=== PATIENT | female | born 1960 | race Caucasian/White ===

== ENCOUNTER 2017-10-31 05:01 | Emergency (ER) | payer OTHER, SELFPAY ==
[2017-10-31 05:35] LABS: #Basophils 0.1 thou/uL (0.0-0.2); #Eosinphils 0.2 thou/uL (0.0-0.7); #Lymphocytes 2.5 thou/uL (1.20-3.40); #Monocytes 0.7 thou/uL (0.11-0.59); #Neutrophils 6.8 thou/uL (1.40-6.50); %Basophils 0.7 % (0.0-1.0); %Eosinophils 1.8 % (0.0-10.0); %Lymphocytes 24.5 % (21.0-51.0); %Monocytes 6.8 % (0.0-10.0); %Neutrophils 66.2 % (42.0-75.0); Hemoglobin 15.7 g/dL (12.0-16.0); Mean Corpuscular HGB CONC 34.2 g/dL (32.0-36.0); Mean Corpuscular Hemoglobin 33.1 pg (27.0-31.0); Mean Corpuscular Volume 96.8 fl (81.0-99.0); Mean Platelet Volume 6.9 fL (7.4-10.4); Platelet Count 280 thou/uL (130-400); RBC Distribution Width 11.2 % (11.5-14.5); Red Blood Cell (RBC) Count 4.73 mill/uL (4.20-5.40); White Blood Cell (WBC) Count 10.2 thou/uL (4.8-10.8)
[2017-10-31 05:47] LABS: ALT (SGPT) 16 U/L (8-55); AST (SGOT) 10 U/L (5-34); Alkaline Phosphatase 128 U/L (40-150); Anion Gap 13 mmol/L (10-20); BUN (Urea Nitrogen) 15 mg/dL (9.8-20.1); Bilirubin, Total 0.4 mg/dL (0.2-1.2); Calc. Creatinine Clearance 0 mL/min (70-130); Calcium 9.6 mg/dL (7.8-10.44); Carbon Dioxide 26 mmol/L (22-29); Chloride 102 mmol/L (98-107); Estimated GFR-MDRD 51; Glucose 192 mg/dL (70-105); Potassium 4.2 mmol/L (3.5-5.1); Sodium 137 mmol/L (136-145)
[2017-10-31] MEDS ORDERED: ISOVUE-370 76%-LOCM 1 ML ONE (07:13)
[2017-10-31] MEDS ORDERED: HYDROcodone/Acetaminophen 10/325 mg Tablet ONE (07:37)
--- NOTE | 2017-10-31 08:59 | RAD ---
RIGHT FOOT 3 VIEWS: Date: 10/31/17 HISTORY: Right foot pain, toes turning purple. FINDINGS/IMPRESSION: No fracture, dislocation, or bony destruction is seen. POS: JACIEL
--- NOTE | 2017-10-31 10:21 | CT ---
CT ANGIOGRAM OF ABDOMINAL AORTA AND BILATERAL LOWER EXTREMITY RUNOFF WITH IV CONTRAST AND 3D POSTPROC ESSING: Date: 10/31/17 HISTORY: 57-year-old female with right foot pain, toes turning purple. FINDINGS: There are chronic changes at the lung bases. No free air or free fluid is seen in the abdomen or pelv is. There is fatty infiltration of the liver. Pancreas, right adrenal gland, and kidneys are unremark able. There is a 3.5 cm left adrenal mass which does not meet criteria for a benign adenoma on postcontrast study. There are vascular calcifications without evidence of aneurysmal dilatation of the abdominal aorta. T here is good flow in the celiac axis, SMA, TANJA, and both renal arteries. There is multifocal atherosclerotic narrowing in the arteries of the pelvis and lower extremities on either side. There is a 2.8 cm segment of occlusion in the right common iliac artery with distal rakel nstitution. There is moderate to severe focal stenosis in the left distal common iliac artery. There is three vessel flow to the left ankle. There is two vessel flow to the right ankle with absenc e of flow in most of the right posterior tibial artery. IMPRESSION: 1. Segmental occlusion of the right common iliac artery. 2. Moderately severe stenosis in the left common iliac artery. 3. Diffuse atherosclerotic vascular disease with two vessel flow to the right ankle and three vessel flow to the left ankle. 4. Fatty liver. 5. Indeterminate 3.5 cm left adrenal mass. A CT scan of the abdomen using the adrenal protocol (with and without IV contrast) would be helpful for better characterization of the mass. POS: JACIEL
== END 2017-10-31 09:49 | disposition home or self-care (01) ==
LOC: ERS 05:01
DX: S95.901A Unspecified injury of unspecified blood vessel at ankle and foot level, right leg, initial encounter (principal); I73.9 Peripheral vascular disease, unspecified; E11.9 Type 2 diabetes mellitus without complications; J44.9 Chronic obstructive pulmonary disease, unspecified; F17.210 Nicotine dependence, cigarettes, uncomplicated; Z79.84 Long term (current) use of oral hypoglycemic drugs; Z79.899 Other long term (current) drug therapy; X58.XXXA Exposure to other specified factors, initial encounter
CPT/HCPCS: 36415; 75635; 80053; 85025; 86140; 96360

== ENCOUNTER 2017-11-04 07:08 | Day surgery (SDC) | payer OTHER ==
[2017-11-03 16:45] VITALS: BMI 25.0
[2017-11-04] MEDS ORDERED: Lidocaine 1% (PF) 30 ML VIAL ONE ×2 (07:45→08:00)
[2017-11-04] MEDS ORDERED: Heparin 0 ML ONE (07:45)
[2017-11-04] MEDS ORDERED: Fentanyl 100 MCG/2 ML VIAL ONE (08:23)
[2017-11-04] MEDS ORDERED: Midazolam HCl 2 mg/2 ml Vial ONE (08:23)
[2017-11-04] MEDS ORDERED: Heparin 10,000 UNITS/1 ML VIAL ONE (09:11)
--- NOTE | 2017-11-04 10:14 | OP ---
DATE OF PROCEDURE: 11/04/2017 PREOPERATIVE DIAGNOSES: Peripheral vascular disease. POSTOPERATIVE DIAGNOSIS: Peripheral vascular disease. PROCEDURE: 1. Bilateral ultrasound guided access to common femoral artery with sheath placement. 2. Abdominal aortogram with bilateral pelvic runoff. 3. Right external iliac artery angiogram. 4. Left external iliac artery angiogram. 5. Right common iliac artery angiogram. 6. Left common iliac artery angiogram. 7. Right common/external iliac primary stenting with a 6 x 57 Express LD stent taken to 8 mmHg. 8. Left external iliac artery primary stenting with a 6 x 37 Express LD stent taken to 8 mmHg. 9. Bilateral ProGlide closure. SURGEON: Dr. Diogo Grimaldo Total Heparin was 7000 units. CONTRAST: 30 mL. FLUORO TIME: 4.0 minutes. PROCEDURE IN DETAIL: After consent was obtained the patient was taken back to the labor and employment paralegal, placed i n supine position on the labor and employment paralegal table. Appropriate anesthetic monitor was placed. IV sedation was begun. The patient received a total of 2 mg Versed and 50 mcg fentanyl. The groins were prepped an d draped in the usual sterile fashion. On the left ultrasound guidance was used to anesthetize the p eriarterial tissue. Percutaneous access to the left common femoral artery was obtained with a microp uncture kit and sheath. This was exchanged for a 5-Cypriot sheath. Contra catheter was passed into t he abdominal aorta. Hand injected abdominal aortogram was performed. There was severe atherosclerot ic disease of the aorta and iliac artery bilaterally. There was an area in the left external iliac a rtery which was approximately 70% stenosis. The right common and external iliac artery were nearly o ccluded. Right groin was anesthetized using ultrasound guidance and micropuncture catheter and sheath were everett jody. The sheath was then exchanged for a 5-Cypriot sheath. Using an angled glide catheter the area o f occlusion in the right common and external iliac artery was traversed with a ESKY guidewire. Th e 5 Cypriot sheaths were exchanged for a 6-Cypriot sheaths bilaterally which were passed into the abdom inal aorta. On the right the sheath was withdrawn into the common iliac artery. Hand injected arteriogram was pe rformed eliminating the iliac system. The artery was measured and appropriate stent selected. The s tent was passed through the sheath. Sheath was withdrawn back into the external iliac artery. After positioning the stent appropriately the stent balloon was inflated. The stent deployment system was then deflated and removed. Hand injected arteriogram was performed with the tip of the sheath and e xternal iliac artery showing excellent result from stenting. The patient has been given 5000 units o f heparin prior to beginning the procedure. Another 2000 units of heparin was given for an ACT of 16 0. On the left, the sheath was backed into the common iliac artery. Hand injected arteriogram performed . An appropriately sized 6 x 37 Express LD stent was selected and positioned. The sheath was withdr awn into the external iliac artery. Stent was inflated to 10 mmHg. Stent deployment system was defl ated and removed. Hand injected arteriogram performed with the tip of the sheath in external iliac a rtery showed an excellent result. ProGlide catheters were then passed bilaterally over the Bentson g uidewire under fluoroscopic guidance. Sheaths were removed and ProGlide deployed. Good hemostasis w as obtained. The patient was then transferred to the recovery area to be observed for 2 hours prior to discharge.
--- NOTE | 2017-11-04 11:34 | CCL ---
DATE OF PROCEDURE: 11/04/2017 PREOPERATIVE DIAGNOSES: Peripheral vascular disease. POSTOPERATIVE DIAGNOSIS: Peripheral vascular disease. PROCEDURE: 1. Bilateral ultrasound guided access to common femoral artery with sheath placement. 2. Abdominal aortogram with bilateral pelvic runoff. 3. Right external iliac artery angiogram. 4. Left external iliac artery angiogram. 5. Right common iliac artery angiogram. 6. Left common iliac artery angiogram. 7. Right common/external iliac primary stenting with a 6 x 57 Express LD stent taken to 8 mmHg. 8. Left external iliac artery primary stenting with a 6 x 37 Express LD stent taken to 8 mmHg. 9. Bilateral ProGlide closure. SURGEON: Dr. Diogo Grimaldo Total Heparin was 7000 units. CONTRAST: 30 mL. FLUORO TIME: 4.0 minutes. PROCEDURE IN DETAIL: After consent was obtained the patient was taken back to the sanitation laborer, placed i n supine position on the sanitation laborer table. Appropriate anesthetic monitor was placed. IV sedation was begun. The patient received a total of 2 mg Versed and 50 mcg fentanyl. The groins were prepped an d draped in the usual sterile fashion. On the left ultrasound guidance was used to anesthetize the p eriarterial tissue. Percutaneous access to the left common femoral artery was obtained with a microp uncture kit and sheath. This was exchanged for a 5-Mozambican sheath. Contra catheter was passed into t he abdominal aorta. Hand injected abdominal aortogram was performed. There was severe atherosclerot ic disease of the aorta and iliac artery bilaterally. There was an area in the left external iliac a rtery which was approximately 70% stenosis. The right common and external iliac artery were nearly o ccluded. Right groin was anesthetized using ultrasound guidance and micropuncture catheter and sheath were everett jody. The sheath was then exchanged for a 5-Mozambican sheath. Using an angled glide catheter the area o f occlusion in the right common and external iliac artery was traversed with a [employer] guidewire. Th e 5 Mozambican sheaths were exchanged for a 6-Mozambican sheaths bilaterally which were passed into the abdom inal aorta. On the right the sheath was withdrawn into the common iliac artery. Hand injected arteriogram was pe rformed eliminating the iliac system. The artery was measured and appropriate stent selected. The s tent was passed through the sheath. Sheath was withdrawn back into the external iliac artery. After positioning the stent appropriately the stent balloon was inflated. The stent deployment system was then deflated and removed. Hand injected arteriogram was performed with the tip of the sheath and e xternal iliac artery showing excellent result from stenting. The patient has been given 5000 units o f heparin prior to beginning the procedure. Another 2000 units of heparin was given for an ACT of 16 0. On the left, the sheath was backed into the common iliac artery. Hand injected arteriogram performed . An appropriately sized 6 x 37 Express LD stent was selected and positioned. The sheath was withdr awn into the external iliac artery. Stent was inflated to 10 mmHg. Stent deployment system was defl ated and removed. Hand injected arteriogram performed with the tip of the sheath in external iliac a rtery showed an excellent result. ProGlide catheters were then passed bilaterally over the Bentson g uidewire under fluoroscopic guidance. Sheaths were removed and ProGlide deployed. Good hemostasis w as obtained. The patient was then transferred to the recovery area to be observed for 2 hours prior to discharge. POS: JACIEL
[2017-11-04] MEDS ORDERED: Iopamidol 370 76% 50 ML VIAL FS ONE (12:59)
== END 2017-11-04 12:05 | disposition home or self-care (01) ==
LOC: CCL 07:08
PROVIDERS: ATTEND Thoracic Surgery (Cardiothoracic Vascular Surgery)
PROC: 047J3DZ Dilation of Left External Iliac Artery with Intraluminal Device, Percutaneous Approach (ICD-10-PCS; principal; 2017-11-04)
PROC: 047H3DZ Dilation of Right External Iliac Artery with Intraluminal Device, Percutaneous Approach (ICD-10-PCS; principal; 2017-11-04)
DX: I70.213 Atherosclerosis of native arteries of extremities with intermittent claudication, bilateral legs (principal); E11.51 Type 2 diabetes mellitus with diabetic peripheral angiopathy without gangrene; F17.210 Nicotine dependence, cigarettes, uncomplicated; J44.9 Chronic obstructive pulmonary disease, unspecified; I10 Essential (primary) hypertension; Z88.0 Allergy status to penicillin; Z88.2 Allergy status to sulfonamides; Z79.84 Long term (current) use of oral hypoglycemic drugs; Z79.82 Long term (current) use of aspirin; Z79.02 Long term (current) use of antithrombotics/antiplatelets; Z79.899 Other long term (current) drug therapy
CPT/HCPCS: 37221; 37223; 76942; 85347; 93976; 99152; 99153; C1725; C1760; C1769; C1876; J1644; J2001; J2250; J3010

== ENCOUNTER 2017-11-04 16:35 | Emergency (ER) | payer OTHER ==
--- NOTE | 2017-11-04 20:14 | ULT ---
DUPLEX SONOGRAM LEFT GROIN 11/04/17 HISTORY: Left groin pain. Bleeding. Recent catheterization. FINDINGS: Good color and spectral doppler flow were present within the left common femoral artery and common fe moral vein. No fluid collections are apparent adjacent to the vessels. IMPRESSION: No significant abnormalities are demonstrated. POS: JACIEL
[2017-11-04] MEDS ORDERED: Bacitracin Zinc 1 Packet ONE (20:31)
== END 2017-11-04 20:40 | disposition home or self-care (01) ==
LOC: ERS 16:35
DX: I97.620 Postprocedural hemorrhage of a circulatory system organ or structure following other procedure (principal); E11.9 Type 2 diabetes mellitus without complications; J44.9 Chronic obstructive pulmonary disease, unspecified; F17.210 Nicotine dependence, cigarettes, uncomplicated; Z79.84 Long term (current) use of oral hypoglycemic drugs; Z79.899 Other long term (current) drug therapy
CPT/HCPCS: 93976

== ENCOUNTER 2018-08-07 23:38 | Inpatient (IN) | payer OTHER, SELFPAY ==
[2018-08-08] MEDS ORDERED: Morphine 4 MG/ML VIAL ONE (00:18)
[2018-08-08] MEDS ORDERED: Ondansetron PF 4 MG/2 ML Vial ONE ×2 (00:18→02:43)
[2018-08-08 00:33] LABS: #Eosinphils 0.1 thou/uL (0.0-0.7); #Lymphocytes 0.5 thou/uL (1.20-3.40); #Monocytes 0.4 thou/uL (0.11-0.59); #Neutrophils 11.4 thou/uL (1.40-6.50); %Basophils 0.4 % (0.0-1.0); %Eosinophils 0.5 % (0.0-10.0); %Monocytes 3.1 % (0.0-10.0); %Neutrophils 92.1 % (42.0-75.0); Hemoglobin 15.9 g/dL (12.0-16.0); Mean Corpuscular Hemoglobin 31.4 pg (27.0-31.0); Mean Corpuscular Volume 92.5 fL (78.0-98.0); Mean Platelet Volume 8.2 fL (7.4-10.4); Platelet Count 241 thou/uL (130-400); RBC Distribution Width 11.1 % (11.5-14.5); Red Blood Cell (RBC) Count 5.05 mill/uL (4.20-5.40); White Blood Cell (WBC) Count 12.3 thou/uL (4.8-10.8)
[2018-08-08 00:34] LABS: ALT (SGPT) 49 U/L (8-55); AST (SGOT) 27 U/L (5-34); Albumin 4.4 g/dL (3.5-5.0); Alkaline Phosphatase 176 U/L (40-150); Anion Gap 17 mmol/L (10-20); BUN (Urea Nitrogen) 14 mg/dL (9.8-20.1); Bilirubin, Total 0.8 mg/dL (0.2-1.2); Calc. Creatinine Clearance 0 mL/min (70-130); Calcium 9.6 mg/dL (7.8-10.44); Carbon Dioxide 21 mmol/L (22-29); Chloride 99 mmol/L (98-107); Estimated GFR-MDRD 55; Globulin 3.3 g/dL (2.4-3.5); Glucose 454 mg/dL (70-105); Lipase 41 U/L (8-78); Potassium 4.1 mmol/L (3.5-5.1); Protein, Total 7.7 g/dL (6.0-8.3); Sodium 133 mmol/L (136-145)
[2018-08-08 01:01] LABS: Troponin I Less than 0.010 ng/mL (< 0.028)
[2018-08-08] MEDS ORDERED: Insulin Regular 300 UNITS/3 ML VIAL ONE (02:43)
[2018-08-08 04:03] LABS: Bilirubin Negative (Negative); Blood, Urine Negative (Negative); Clarity CLEAR (Clear); Glucose, Urine (Dipstick) >=1000 mg/dL (Negative); Leukocyte Negative (Negative); Nitrite Negative (Negative); Protein, Urine (Dipstick) Negative (Neg-Trace); Urobilinogen 0.2 mg/dL (0.2-1.0)
[2018-08-08 04:10] LABS: Specific Gravity, Urine 1.051 (1.002-1.036)
[2018-08-08] MEDS ORDERED: Ondansetron PF 4 MG/2 ML Vial IVP PRN (05:30)
[2018-08-08] MEDS ORDERED: Acetaminophen 325 MG TAB PO PRN ×3 (05:30→18:11)
[2018-08-08] MEDS ORDERED: Ondansetron ODT 4 MG TAB SL PRN (05:30)
[2018-08-08] MEDS ORDERED: Morphine 2 MG/ML SYRINGE SLOW IVP PRN (05:31)
[2018-08-08 05:42] VITALS: BMI 26.3
[2018-08-08] MEDS: Sodium Chloride 0.9% 1,000 ML IV SCH ×4 (05:51→20:39)
--- NOTE | 2018-08-08 10:13 | RAD ---
KUB: INDICATIONS: NG tube placement. FINDINGS/IMPRESSION: NG tube projects in the region of the distal gastric body. Cardiomegaly is present. The bowel gas p attern is nonspecific but without evidence of obstruction. POS: LOSH
--- NOTE | 2018-08-08 11:05 | CT ---
PRELIMINARY REPORT/[facility]/EMERGENTY AFTER-HOURS PROCEDURE CT Abdomen and Pelvis With Intravenous Contrast EXAM DATE/TIME: 08/08/2018 12:38 AM CLINICAL HISTORY: 58 years old, female; Pain; Abdominal pain; Prior surgery; Surgery type: Hysterectomy; Patient HX: domen soft, tender, to the left upper quadrant, to the left lower quadrant, to the right lower quadra nt, bowel sound normal, associated with nausea, associated with vomiting, history of vomiting, patient reports vomiting "every 10-15 minutes" TECHNIQUE: Axial computed tomography images of the abdomen and pelvis with intravenous contrast. Coronal reformatted images were created and reviewed. COMPARISON: No relevant prior studies available. FINDINGS: Lower thorax: Small hiatal hernia. Peripheral and basilar pulmonary scarring/fibrosis. ABDOMEN: Liver: Hepatic steatosis. Gallbladder and bile ducts: Gallstone at the junction of the cystic duct and neck of the gallbladder. No gallbladder wall thickening or pericholecystic inflammation to indicate acute cholecystitis. No b iliary ductal dilatation. Pancreas: Normal. No ductal dilation. Spleen: Normal. No splenomegaly. Adrenals: 4 cm heterogeneous enhancing left adrenal mass, potentially malignant. Kidneys and ureters: Normal. No hydronephrosis. Stomach and bowel: Noncontiguous portions the small bowel are mildly distended with fluid up to 2 cm in caliber; however, there is no clear transition point. Findings may be secondary to normal peristal sis or may signify a partial distal small bowel obstruction. No bowel wall thickening. Appendix: Normal appendix. PELVIS: Bladder: Unremarkable as visualized. Reproductive: Prior hysterectomy. ABDOMEN and PELVIS: Intraperitoneal space: No pneumoperitoneum or abscess. Bones/joints: No acute fracture. No dislocation. Soft tissues: Unremarkable. Vasculature: No pneumatosis or portal/mesenteric venous gas. SMV and SMA are patent as far as can be traced. Lymph nodes: Normal. No enlarged lymph nodes. IMPRESSION: 1. Noncontiguous portions the small bowel are mildly distended with fluid up to 2 cm in caliber; werner ninoska, there is no clear transition point. Findings may be secondary to normal peristalsis or may signi fy a partial distal small bowel obstruction. 2. 4 cm heterogeneous enhancing left adrenal mass, potentially malignant. 3. Peripheral and basilar pulmonary scarring/fibrosis. Thank you for allowing us to participate in the care of your patient. Dictated and Authenticated by: Huey Martin MD 08/08/2018 1:29 AM Central Time ([place] & [place]) FINAL REPORT: There are nonspecific, mildly dilated, fluid-filled loops of small bowel within the upper abdomen roberto t may reflect mild enteritis. There are no overt obstructive features. The small bowel proximal to this region is nondilated. There is fatty infiltration of the liver. There is stable cholelithiasis. The small diverticulum in volving the junction of the second and third stage of the duodenum is likely stable. There is a stab le left adrenal adenoma, measuring 3.6 cm. The right adrenal gland is normal appearing. The kidneys are normal appearing. There are calcified granuloma within the spleen. There are scattered diverti cula involving the colon. There is a mild amount of retained stool within the colon. There is diffu se osteopenia. IMPRESSION: 1. Findings suspicious for mild enteritis. 2. Stable left adrenal adenoma. This has been stable since 2013. 3. Fatty liver. 4. Findings of prior granulomatous disease. 5. Colonic diverticulosis. POS: JACIEL
--- NOTE | 2018-08-08 11:17 | RAD ---
CHEST ONE VIEW: INDICATIONS: Nausea and vomiting. COMPARISON: 01/12/2015 FINDINGS: There is stable bibasilar scarring. Heart size is mildly enlarged. No pleural effusion or pneumotho rax is evident. Emphysematous change is similar appearing. No acute osseous abnormality is evident. IMPRESSION: No acute abnormality. POS: H
[2018-08-08] MEDS ORDERED: Dextrose 5% in Water 1,000 ML IV PRN (15:12)
[2018-08-08] MEDS ORDERED: Dextrose 50% Abboject 50 ML SYRINGE SLOW IVP PRN (15:12)
[2018-08-08] MEDS ORDERED: PROVENTIL INHALER 6.7 G (200 INHALATIONS) INH PRN (15:12)
[2018-08-08] MEDS ORDERED: HumaLOG 300 UNITS/3 ML VIAL SC PRN ×2 (15:12)
[2018-08-08] MEDS ORDERED: Guaifenesin DM 100-10/5 ML UDCUP PO PRN (15:12)
[2018-08-08] MEDS ORDERED: Iopamidol 370 76% 100 ML VIAL ONE (16:27)
[2018-08-08] MEDS: Lisinopril 10 MG TAB PO SCH (20:37)
[2018-08-08] MEDS: metFORMIN XR 500 MG TAB PO SCH (20:37)
[2018-08-09 05:38] LABS: #Eosinphils 0.1 thou/uL (0.0-0.7); #Lymphocytes 1.8 thou/uL (1.20-3.40); #Monocytes 0.5 thou/uL (0.11-0.59); #Neutrophils 2.5 thou/uL (1.40-6.50); %Eosinophils 1.3 % (0.0-10.0); %Lymphocytes 36.3 % (21.0-51.0); %Monocytes 10.6 % (0.0-10.0); %Neutrophils 50.8 % (42.0-75.0); Hemoglobin 13.3 g/dL (12.0-16.0); Mean Corpuscular HGB CONC 33.4 g/dL (32.0-36.0); Mean Corpuscular Hemoglobin 31.7 pg (27.0-31.0); Mean Corpuscular Volume 95.2 fL (78.0-98.0); Mean Platelet Volume 7.7 fL (7.4-10.4); Platelet Count 186 thou/uL (130-400); RBC Distribution Width 11.3 % (11.5-14.5)
[2018-08-09 06:15] LABS: Anion Gap 13 mmol/L (10-20); BUN (Urea Nitrogen) 11 mg/dL (9.8-20.1); Calc. Creatinine Clearance 77 mL/min (70-130); Calcium 8.1 mg/dL (7.8-10.44); Carbon Dioxide 23 mmol/L (22-29); Chloride 104 mmol/L (98-107); Estimated GFR-MDRD 82; Glucose 257 mg/dL (70-105); Potassium 3.6 mmol/L (3.5-5.1); Sodium 136 mmol/L (136-145)
--- NOTE | 2018-08-09 07:50 | HP ---
REASON FOR ADMISSION: Small bowel obstruction. HISTORY OF PRESENT ILLNESS: The patient complains of vomiting and dry heaving from 7:00 p.m. yesterday evening. At around 9:30 p.m., the patient started to have small amounts of blood with intractable dry heaving. At around 11:00 p.m. as this was not getting better, she came to the emergency room. She had abdominal cramping, but no diarrhea or such. Last bowel movement was yesterday morning, which looked normal. No prior history of small-bowel obstruction. She has had a CT scan done in the emergency room, which is suspicious for a small bowel obstruction. The patient was placed on NG tube with low intermittent suction and Dr. Hull was consulted for General Surgery. Currently, she has no abdominal pain, nausea, or vomiting. She is comfortable at present. PAST MEDICAL AND SURGICAL HISTORY: 1. Diabetes mellitus type 2. 2. Hypertension. 3. COPD. 4. Peripheral vascular disease. 5. She has had stenting done to both lower extremities for peripheral vascular disease. 6. x2. 7. Hysterectomy. CURRENT MEDICATIONS: Takes, 1. Metformin 500 mg p.o. twice daily. 2. Lisinopril 10 mg twice daily. 3. Aspirin 81 mg daily. ALLERGIES: TO PENICILLIN AND SULFA. PERSONAL HISTORY: Quit smoking in October of 2017, prior to which has smoked one and half packs a day for nearly 40 years. Does not abuse alcohol or drugs. Lives with her . FAMILY HISTORY: Mother of small cell lung cancer at the age of 62. She was a heavy smoker. Father at the age of 89 years. REVIEW OF SYSTEMS: CONSTITUTIONAL: Negative for weight loss or gain, ability to conduct usual activities. SKIN: Negative for rash, itching. EYES: Negative for double vision, pain. ENT/MOUTH: Negative for nose bleeding, neck stiffness, pain, tenderness. CARDIOVASCULAR: Negative for palpitations, dyspnea on exertion, orthopnea. RESPIRATORY: Negative for shortness of breath, wheezing, cough, hemoptysis, fever or night sweats. GASTROINTESTINAL: Negative for poor appetite, abdominal pain, heartburn, nausea, vomiting, constipation, or diarrhea. GENITOURINARY: Negative for urgency, frequency, dysuria, nocturia. MUSCULOSKELETAL: Negative for pain, swelling. NEUROLOGIC/PSYCHIATRIC: Negative for anxiety, depression. ALLERGY/IMMUNOLOGIC: Negative for skin rash, bleeding tendency. CODE STATUS: Full. POWER OF TECHNICIAN TRAINEE: Her . PHYSICAL EXAMINATION: GENERAL: The patient is a 58-year-old female, who is currently not in any acute distress. VITAL SIGNS: Blood pressure 126/80, pulse 90 per minute, respiratory rate 18 per minute, temperature on arrival was 99.2 degrees Fahrenheit, currently 98 degrees Fahrenheit, saturating 96% on room air. NECK: Supple. No elevated JVD. EYES: Extraocular muscles are intact. Pupils are reacting to light. Oral cavity, mucous membranes are moist. No exudates or congestion. CARDIOVASCULAR SYSTEM: S1 and S2 heard. Regular rhythm. RESPIRATORY SYSTEM: Air entry 1+ bilateral. Scattered rhonchi. No rales or wheezes. ABDOMEN: Soft. Bowel sounds heard. No tenderness, rigidity, or guarding. EXTREMITIES: No peripheral edema or calf tenderness. Peripheral pulses are 1+ bilateral. No ischemic ulcerations or gangrene. CENTRAL NERVOUS SYSTEM: No gross focal deficits noted. The patient is alert, awake, and oriented well. PSYCHIATRIC SYSTEM: The patient's mood is euthymic. No hallucinations or delusions. LABORATORY DATA: White count of 12, hemoglobin and hematocrit are 15 and 46, and platelet count 241 with 92% neutrophils. Sodium 133, serum bicarb 21, BUN 14, creatinine 1.0. Serum glucose 454 on arrival. Current fingerstick is 263. AST and ALT within normal limits. Alkaline phosphatase 176. First set of troponin is negative. Albumin is 4.4. Lipase is 41. CT of the abdomen and pelvis done, shows findings suspicious for possible small bowel obstruction, but there is no clear transition point. Findings could be related to normal peristalsis or partial small-bowel obstruction. Has a chronic left adrenal mass, which is 4 cm. Chest x-ray done shows no acute cardiopulmonary abnormality. CLINICAL IMPRESSION AND PLAN: The patient will be admitted to medical floor for small bowel obstruction, which is resolving at present. Her abdomen is very benign at present. The patient has stopped dry heaving. Her NG tube suction has around 100 mL of bile. We will remove her NG tube and start her on clear liquid diet. Dr. Hull, general surgeon, is yet to see her. We will start her home medications including Plavix, lisinopril, metformin, and omeprazole as before. She will be gently hydrated with normal saline and morphine p.r.n. for pain. We will obtain stool studies as well, if the patient develops diarrhea. Her electrolytes will be closely monitored. We will continue to closely monitor her on medical floor. Job ID: [id number]
--- NOTE | 2018-08-09 07:51 | CON ---
DATE OF CONSULTATION: CHIEF COMPLAINT: Abdominal pain, nausea and vomiting. HISTORY: Ms. Ortiz is a 58-year-old woman who presented to the emergency room with a several-hour history of severe nausea and vomiting. She became concerned when she saw streaks of blood in her emesis. She underwent a CT scan, which showed some mildly dilated loops of small bowel. The distal small bowel looked relatively decompressed, but no transition point was seen. She states that since her admission, she has been free of nausea and pain and she has never had any similar episodes before. She did initially have an NG tube, but there was not much output and this had been discontinued by the time that I saw her, and she was actually taking a clear liquid diet, which she was tolerating well. She denied any abdominal pain, nausea, or vomiting today. PAST MEDICAL HISTORY: Diabetes and asthma. PAST SURGICAL HISTORY: x2 and hysterectomy. She has also had lower extremity arterial stents placed. SOCIAL HISTORY: Tobacco use, but does not drink. FAMILY HISTORY: Noncontributory. REVIEW OF SYSTEMS: Negative except per HPI. ALLERGY: She has a known allergy to penicillin and sulfa. MEDICATIONS: She takes metformin, lisinopril, and aspirin at home. REVIEW OF SYSTEMS: She states that when she was having the pain, it was mild and crampy in nature and really the nausea and vomiting were the most troublesome. She states that she had a bowel movement yesterday morning and that was normal and the onset of her symptoms was quite sudden around 7:00 in the evening. She ate the same thing as everybody else in her family and no one else got sick. She denies any ill contacts. PHYSICAL EXAMINATION: VITAL SIGNS: Normal. She has been afebrile since her admission. GENERAL: Reveals a healthy-appearing woman in no acute distress. She is not flushed or toxic in appearance. She is not jaundiced or icteric. HEENT: Unremarkable. NECK: Supple without lymphadenopathy or thyroid nodules. HEART: Regular in its rate and rhythm without murmurs, rubs, or gallops. LUNGS: Clear to auscultation bilaterally. ABDOMEN: Soft, nontender, nondistended. She has normal bowel sounds. EXTREMITIES: Warm, well perfused without edema. NEURO: No focal deficits. PSYCHIATRIC: Alert, oriented, and appropriate. ASSESSMENT AND PLAN: Gastroenteritis versus very mild partial small-bowel obstruction. She is symptomatically better and can advance her diet as tolerated. Please call me if there are any questions or concerns. Job ID: [id number]
[2018-08-09] MEDS: Lisinopril 10 MG TAB PO SCH (08:01)
[2018-08-09] MEDS: metFORMIN XR 500 MG TAB PO SCH (08:01)
[2018-08-09] MEDS ORDERED: Enoxaparin Sodium 40 MG/0.4 ML SYRINGE SC SCH (09:00)
[2018-08-09] MEDS ORDERED: Clopidogrel Bisulfate 75 MG TAB PO SCH (09:00)
[2018-08-09] MEDS ORDERED: glipiZIDE 5 MG TAB PO SCH (09:15)
[2018-08-09 11:22] VITALS: BP 118/75; TEMP 97.8
--- NOTE | 2018-08-09 11:34 | PDOC.PN ---
- Subjective Encounter Start Date: 08/09/18 Encounter Start Time: 08:00 Subjective: no abd pain or nausea -: tolerating liq diet, had bm this am and is passing flatus - Objective Resuscitation Status - Order Detail: 08/08/18 15:10 Resuscitation Status Routine Resuscitation Status: FULL: Full Resuscitation MAR Reviewed: Yes Vital Signs & Weight: Vital Signs (12 hours) Temp Pulse Resp BP BP BP Pulse Ox 08/09/18 11:21 97.8 F 74 16 118/75 98 08/09/18 08:01 116/75 08/09/18 08:00 95 08/09/18 07:50 97.6 F 68 16 116/75 95 Weight Weight 130 lb 6 oz Result Diagrams: 08/09/18 04:25 08/09/18 04:25 Additional Labs: Accuchecks 08/09/18 08/09/18 08/08/18 11:12 04:33 20:00 POC Glucose 176 H 251 H 257 H 08/08/18 08/08/18 16:50 12:09 POC Glucose 237 H 263 H Phys Exam - Physical Examination HEENT: PERRLA, moist MMs Neck: no JVD, supple Respiratory: no wheezing, no rales Cardiovascular: RRR, no significant murmur Gastrointestinal: soft, non-tender, no distention, positive bowel sounds Musculoskeletal: no edema, pulses present Neurological: non-focal, moves all 4 limbs Psychiatric: normal affect, A&O x 3 Dx/Plan (1) SBO (small bowel obstruction) Code(s): K56.609 - UNSP INTESTNL OBST, UNSP TO PARTIAL VERSUS COMPLETE OBST Status: Resolved (2) DM type 2 (diabetes mellitus, type 2) Status: Chronic Qualifiers: Diabetes mellitus bed bug exterminator insulin use: without bed bug exterminator use Diabetes mellitus complication status: with unspecified complications Qualified Code(s) : E11.8 - Type 2 diabetes mellitus with unspecified complications (3) HTN (hypertension) Code(s): I10 - ESSENTIAL (PRIMARY) HYPERTENSION Status: Chronic Qualifiers: Hypertension type: essential hypertension Qualified Code(s): I10 - Essential (primary) hypertension (4) PVD (peripheral vascular disease) Code(s): I73.9 - PERIPHERAL VASCULAR DISEASE, UNSPECIFIED Status: Chronic Comment: prior stent to b/l LE arteries - Plan sbo is resolved -: hemostable -: dc pt home * . Review of Systems - Medications/Allergies Allergies/Adverse Reactions: Allergies Allergy/AdvReac Type Severity Reaction Status Date / Time Sulfa (Sulfonamide Allergy Severe WELPS Verified 11/03/17 16:41 Antibiotics) Penicillins Allergy Intermediate PT DOESN'T Verified 11/03/17 16:41 REMEMBER HAPPENED CHILD
--- NOTE | 2018-08-09 16:06 | DIS ---
DATE OF ADMISSION: 08/08/2018 DATE OF DISCHARGE: 08/09/2018 DISCHARGE DISPOSITION: Home. PRIMARY DISCHARGE DIAGNOSIS: Partial small bowel obstruction, resolved. SECONDARY DISCHARGE DIAGNOSES: Diabetes mellitus type 2, hypertension, peripheral vascular disease with prior stenting to both lower extremities. PROCEDURES DONE DURING HOSPITALIZATION: The patient had a chest x-ray done, which showed no acute abnormality. CT of the abdomen and pelvis with contrast done showed possible partial small bowel obstruction and also left adrenal mass, which has been present on the prior CAT scan, which needs further followup as an outpatient. Stool for C. diff is negative. Stool for Campylobacter and Shiga toxin 1 and 2 was negative. White count of 5, hemoglobin and hematocrit were 13 and 40, platelet count 186. Discharge BUN and creatinine are 11 and 0.7. DISCHARGE MEDICATIONS: 1. Albuterol inhaler q.6 hourly p.r.n. 2. Plavix 75 mg p.o. daily. 3. Lisinopril 10 mg twice daily. 4. Metformin extended release 500 mg p.o. twice daily. 5. Omeprazole 20 mg p.o. daily. ALLERGIES: TO PENICILLIN AND SULFA. INPATIENT CONSULT: Dr. Hull for General Surgery. DISCHARGE PLAN: The patient will follow up with primary care physician in one week. BRIEF COURSE DURING HOSPITALIZATION: The patient initially came in with complaints of abdominal pain and intractable nausea and vomiting. Her initial CAT scan was suspicious for partial small bowel obstruction. The patient initially had an NG tube placed and had low intermittent suction done. She has had General Surgery consultation with Dr. Hull. Paitent has had dramatic improvement in her symptoms. 18 hours into the hospitalization, the patient's abdominal pain completely got resolved and so was her nausea and vomiting. She was initially placed on liquid diet and has been advanced to solid diet prior to discharge. She is ambulating well. She has had a bowel movement this morning. No further diarrhea. Her fingerstick glucose was elevated around 200, but the patient says it is usually between 100 and 150 at home on just metformin and we will continue the same for now. Please note, I have seen and examined the patient on the day of discharge. Job ID: [id number] MTDD
[2018-08-10] MEDS ORDERED: glipiZIDE 5 MG TAB PO SCH (07:30)
== END 2018-08-09 11:22 | disposition home or self-care (01) | DRG 390 ==
LOC: ERS 23:38 → T4-B 08-08 02:09
PROVIDERS: ADMIT Internal Medicine; ATTEND Internal Medicine
DX: K56.609 Unspecified intestinal obstruction, unspecified as to partial versus complete obstruction (principal); E11.51 Type 2 diabetes mellitus with diabetic peripheral angiopathy without gangrene; I10 Essential (primary) hypertension
CPT/HCPCS: 36415; 36416; 71045; 74018; 74177; 80048; 80053; 81003; 83690; 83930; 84484; 85025; 87045; 87046; 87324; 87449; 87899; 93005; 96361; 96374; 96375; 96376; J1650; J1815; J2270; J2405

== ENCOUNTER 2018-09-10 01:44 | Inpatient (IN) | payer SELFPAY ==
[2018-09-10] MEDS ORDERED: Acetaminophen 500 MG TAB ONE (02:11)
[2018-09-10] MEDS ORDERED: Ondansetron PF 4 MG/2 ML Vial ONE ×2 (02:11→05:15)
[2018-09-10] MEDS ORDERED: Morphine 4 MG/ML VIAL ONE (02:11)
[2018-09-10] MEDS ORDERED: Cefepime 2 GM VIAL ONE (02:36)
[2018-09-10 02:46] LABS: #Eosinphils 0.1 thou/uL (0.0-0.7); #Lymphocytes 1.9 thou/uL (1.20-3.40); #Neutrophils 9.8 thou/uL (1.40-6.50); %Basophils 0.1 % (0.0-1.0); %Eosinophils 0.9 % (0.0-10.0); %Lymphocytes 15.1 % (21.0-51.0); %Monocytes 7.4 % (0.0-10.0); %Neutrophils 76.5 % (42.0-75.0); Hemoglobin 15.2 g/dL (12.0-16.0); Mean Corpuscular HGB CONC 34.8 g/dL (32.0-36.0); Mean Corpuscular Hemoglobin 31.5 pg (27.0-31.0); Mean Corpuscular Volume 90.6 fL (78.0-98.0); Mean Platelet Volume 8.2 fL (7.4-10.4); Platelet Count 185 thou/uL (130-400); RBC Distribution Width 11.3 % (11.5-14.5); Red Blood Cell (RBC) Count 4.83 mill/uL (4.20-5.40); White Blood Cell (WBC) Count 12.8 thou/uL (4.8-10.8)
[2018-09-10 02:48] LABS: ALT (SGPT) 37 U/L (8-55); AST (SGOT) 21 U/L (5-34); Albumin 4.4 g/dL (3.5-5.0); Alkaline Phosphatase 206 U/L (40-150); Anion Gap 19 mmol/L (10-20); BUN (Urea Nitrogen) 12 mg/dL (9.8-20.1); Bilirubin, Total 0.6 mg/dL (0.2-1.2); Calc. Creatinine Clearance 0 mL/min (70-130); Calcium 9.9 mg/dL (7.8-10.44); Carbon Dioxide 22 mmol/L (22-29); Chloride 96 mmol/L (98-107); Estimated GFR-MDRD 64; Globulin 3.6 g/dL (2.4-3.5); Glucose 370 mg/dL (70-105); Potassium 4.3 mmol/L (3.5-5.1); Sodium 133 mmol/L (136-145)
[2018-09-10 03:16] LABS: Bilirubin Negative (Negative); Blood, Urine Negative (Negative); Clarity CLEAR (Clear); Glucose, Urine (Dipstick) >=1000 mg/dL (Negative); Leukocyte Negative (Negative); Nitrite Negative (Negative); Protein, Urine (Dipstick) Negative (Neg-Trace); Urobilinogen 0.2 mg/dL (0.2-1.0); pH, Urine 6.5 (5.0-9.0)
[2018-09-10] MEDS ORDERED: Acetaminophen 325 MG TAB PO PRN (06:09)
[2018-09-10 06:25] VITALS: BMI 26.4
[2018-09-10] MEDS ORDERED: Dextrose 5% in Water 1,000 ML IV PRN (07:33)
[2018-09-10] MEDS ORDERED: Dextrose 50% Abboject 50 ML SYRINGE SLOW IVP PRN (07:33)
--- NOTE | 2018-09-10 07:55 | RAD ---
CHEST 1 VIEW: HISTORY: Dyspnea. COMPARISON: Radiograph 08/07/2018. FINDINGS: There are some mild chronic interstitial markings I both lung bases. No pneumothorax. No focal airs pace consolidation. Multiple calcified granulomas along the left hilum. IMPRESSION: Chronic changes. No acute intrathoracic abnormality. POS: [facility]
--- NOTE | 2018-09-10 09:07 | CT ---
CT ANGIO OF CHEST PERFORMED WITH INTRAVENOUS CONTRAST ENHANCEMENT WITH 3D RECONSTRUCTIONS: HISTORY: Pleuritic chest pain. COMPARISON: A study. FINDINGS: There are COPD-type lung changes. There are no pulmonary nodules identified. There is linear scarri ng in both lung bases. There are some small right paratracheal nodes. There are some slightly enlarged prevascular lymph no tiny, the largest node measuring up to 8 mm in short axis dimension. These are probably reactive. Th ere are also calcified subcarinal nodes present. The thoracic aorta is normal in caliber. There is good pulmonary artery opacification. There is no CT evidence for pulmonary embolus. Visualized liver parenchyma shows no focal findings. The spleen is incompletely visualized but may b e slightly enlarged. Stable appearance to a large left adrenal mass, probably an adenoma is seen. I t measures 3.6 cm in maximum dimension. Small periportal lymph nodes are noted. The gallbladder has been removed since the previous examination. There is what appears to be a stone present which may be potentially within a cystic duct remnant. A small hiatal hernia is noted. IMPRESSION: 1. No CT evidence for pulmonary embolus. 2. Emphysematous lung change. Other findings as noted above. POS: [facility]
[2018-09-10] MEDS: Lisinopril 10 MG TAB PO SCH ×3 (09:15→21:08)
--- NOTE | 2018-09-10 10:39 | HP ---
CHIEF COMPLAINT: Pleuritic chest pain and shortness of breath. HISTORY OF PRESENT ILLNESS: The patient is a 58-year-old female, who woke up with substernal pleuritic chest pain and shortness of breath last night, the day before she started having some cough. No fever. She came to the emergency room for further evaluation. She was diagnosed with sepsis/pneumonia and got admitted to the hospital for further treatment. PAST MEDICAL HISTORY: 1. Diabetes mellitus. 2. COPD. PAST SURGICAL HISTORY: 1. C-sections x2. 2. Hysterectomy. 3. Peripheral vascular disease and placement of two stents in the leg. SOCIAL HISTORY: She quit smoking last year in October. She does not drink alcohol. Does not use any illicit drugs. FAMILY HISTORY: Father has heart disease. He is still alive. He is 89. Mother at the age of 62 of lung cancer. ALLERGIES: PENICILLIN AND SULFA. CURRENT MEDICATIONS: 1. Metformin 500 mg twice a day. 2. Lisinopril 10 mg twice a day. 3. Aspirin 81 mg once a day. PRIMARY CARE DOCTOR: Melvin García MD. Surrogate decision maker, Joseph Sunday Ortiz. REVIEW OF SYSTEMS: All 14 systems were reviewed and all those symptoms are negative except for those mentioned in the HPI. PHYSICAL EXAMINATION: GENERAL: She is not in any distress during my visit. VITAL SIGNS: Blood pressure is 119/70, pulse is 86, respiratory rate is 14, and O2 saturation is 92% on room air. HEENT: Head is atraumatic and normocephalic. Eyes PERRLA. Sclerae are nonicteric. Oral mucosa is moist. NECK: Supple. No lymphadenopathy. Thyroid is not palpable. LUNGS: Bilateral crackles at both bases. HEART: S1 and S2 normal. No S3. No S4. No any murmur. ABDOMEN: Soft and nontender. Bowel sounds are present. No organomegaly. EXTREMITIES: No clubbing, cyanosis, or edema. NEUROLOGIC: She is alert and oriented x4. There is no any sensory or motor deficits present. Cranial nerves are intact. LABORATORY DATA: Labs showed white count of 12.8, hemoglobin 15.2, hematocrit 43.8, platelet count is , neutrophils 76.5. D-dimer is 0.58. Sodium of 133, potassium 4.3, chloride 96, CO2 of 22, creatinine 0.9, glucose 370. Lactic acid was 3.0, and this morning is 2.0. Alkaline phosphatase 206, globulin 3.6, and the rest of chemistry within normal limits. Creatinine 0.9 and BUN of 12. Urinalysis showed more than 1000 of glucose and 15 of ketones. Chest x-ray showed questionable infiltrate in the left lower lobe behind the heart. EKG showed sinus tachycardia. This is personally reviewed by me and some T-wave inversions in V1, V2, and V3 suggestive of possible ischemia. IMPRESSION: 1. Pleuritic chest pain with shortness of breath, fever, and left lower lobe infiltrate, suspicion for infectious process in the left lower lobe. She is treated as pneumonia, but with her elevated D-dimers, I will scan her and will rule out PE, though she is not hypoxic. 2. Diabetes mellitus type 2. PLAN: Full admission. Condition is fair. Activity, bedrest and bathroom privileges. Diabetic diet, IV Hep-Lock, levofloxacin 750 mg IV piggyback every 24 hours. Aspirin 81 mg once a day, lisinopril 10 mg twice a day. Echocardiogram to assess her LVEF. I will put her on DVT prophylaxis with Lovenox and SCDs and she should be able to go home soon. Job ID: [id number]
[2018-09-10] MEDS: HumaLOG 300 UNITS/3 ML VIAL SC PRN ×3 (12:19→20:51)
[2018-09-10] MEDS ORDERED: Iopamidol 370 76% 100 ML VIAL ONE (17:00)
[2018-09-10] MEDS ORDERED: traMADol HCl 50 MG TAB PO SCH (22:00)
[2018-09-11] MEDS: HumaLOG 300 UNITS/3 ML VIAL SC PRN (05:34)
[2018-09-11] MEDS ORDERED: Ondansetron PF 4 MG/2 ML Vial IVP SCH (05:45)
[2018-09-11 06:39] LABS: #Eosinphils 0.1 thou/uL (0.0-0.7); #Lymphocytes 1.7 thou/uL (1.20-3.40); #Monocytes 0.6 thou/uL (0.11-0.59); #Neutrophils 4.7 thou/uL (1.40-6.50); %Basophils 0.5 % (0.0-1.0); %Eosinophils 1.1 % (0.0-10.0); %Lymphocytes 23.5 % (21.0-51.0); %Monocytes 8.9 % (0.0-10.0); Hemoglobin 12.4 g/dL (12.0-16.0); Mean Corpuscular HGB CONC 34.5 g/dL (32.0-36.0); Mean Corpuscular Hemoglobin 32.3 pg (27.0-31.0); Mean Corpuscular Volume 93.7 fL (78.0-98.0); Mean Platelet Volume 7.7 fL (7.4-10.4); Platelet Count 184 thou/uL (130-400); RBC Distribution Width 11.2 % (11.5-14.5); Red Blood Cell (RBC) Count 3.84 mill/uL (4.20-5.40); White Blood Cell (WBC) Count 7.1 thou/uL (4.8-10.8)
[2018-09-11 06:53] LABS: Anion Gap 13 mmol/L (10-20); BUN (Urea Nitrogen) 13 mg/dL (9.8-20.1); Calc. Creatinine Clearance 75 mL/min (70-130); Calcium 8.9 mg/dL (7.8-10.44); Carbon Dioxide 25 mmol/L (22-29); Chloride 96 mmol/L (98-107); Estimated GFR-MDRD 78; Glucose 296 mg/dL (70-105); Potassium 3.9 mmol/L (3.5-5.1); Sodium 130 mmol/L (136-145)
[2018-09-11 07:32] VITALS: BP 101/66; TEMP 98.1
[2018-09-11] MEDS: Lisinopril 10 MG TAB PO SCH (08:49)
[2018-09-11] MEDS ORDERED: metFORMIN XR 500 MG TAB PO SCH (09:00)
--- NOTE | 2018-09-12 03:27 | DIS ---
DATE OF ADMISSION: 09/10/2018 DATE OF DISCHARGE: 09/11/2018 DISCHARGE DIAGNOSES: 1. Pleuritic chest pain, most likely related to reactive enlargement of the lymph nodes. 2. Left adrenal gland mass. 3. Diabetes mellitus. 4. Chronic obstructive pulmonary disease. HOSPITAL COURSE: The patient was a 58-year-old female, who woke up with substernal pleuritic chest pain and some shortness of breath the night before this admission. She had some cough. No fever. She came to the emergency room for further evaluation and there was suspicions for sepsis/pneumonia since her white count was elevated and she has pleuritic chest pain. In the emergency room, her white count was elevated at 12.8, hemoglobin 15.2, and hematocrit 43.8. She had 76% of neutrophils. D-dimers were slightly elevated at 0.58. Chemistry was within normal limits. Her glucose was elevated at 370. Lactic acid was 3.0, the next morning was 2.0. Creatinine was 0.9 and BUN was 12. Urinalysis showed more than 1000 of glucose and 15 of ketones. Chest x-ray showed questionable infiltrate in the left lower lobe and the EKG showed sinus tachycardia with some T-wave inversions in V1 and V2. She was diagnosed with pleuritic chest pain with shortness of breath and possible infectious process in her chest. Because of elevation of D-dimers and unclear picture clinically, she underwent CT angiogram of the chest, which showed some enlargement of the right paratracheal nodes and some slightly enlarged perivascular lymph nodes. Also, COPD-type lung changes. No PE. A 3.6 cm adenoma versus other etiology left adrenal mass. The patient originally was treated for pneumonia with levofloxacin. Today, she is doing better, but she had some pleuritic chest pain overnight, which was treated with pain medications. Her blood pressure is 101/66, pulse is 76, temperature is 98.1, respirations 18, and she is 92% on room air. Her glycemia is running high and so we are going to double the dose of her metformin to 1000 mg twice a day. She is discharged home in good condition with recommendation to stay on diabetic diet 2000 calories. ACTIVITIES: As tolerated. FOLLOWUP: Follow up with primary care physician in 1 week. She will need to have full service supervisor evaluation for her left adrenal mass, hormonal checked and possible biopsy if hormones suggested that this could be a malignant tumor. MEDICATIONS: At the time of discharge: 1. Metformin XR 1000 mg twice a day. 2. Aspirin 81 mg once a day. 3. Lisinopril 10 mg twice a day. 4. Omeprazole 20 mg daily. 5. DuoNeb p.r.n. 6. Tramadol/acetaminophen 37.5/325 one tablet every 4 hours p.r.n. as needed for the pleuritic chest pain. DISCHARGE CONDITION: She is discharged home in good condition. TIME SPENT: Discharge time is less than 30 minutes. She was seen and examined before she is discharged. Job ID: [id number]
== END 2018-09-11 10:38 | disposition home or self-care (01) | DRG 194 ==
LOC: ERS 01:44 → CCU 03:00 → T4-B 22:23
PROVIDERS: ADMIT Internal Medicine; ATTEND Internal Medicine
DX: J18.9 Pneumonia, unspecified organism (principal); J44.0 Chronic obstructive pulmonary disease with (acute) lower respiratory infection; E11.9 Type 2 diabetes mellitus without complications
CPT/HCPCS: 36415; 36416; 71045; 71275; 80048; 80053; 81003; 83605; 83880; 84484; 85025; 85379; 87040; 87086; 87804; 93005; 93306; 94640; 96361; 96365; 96367; 96375; 96376; J0692; J1956; J2270; J2405; J7620

== ENCOUNTER 2019-01-25 22:59 | Inpatient (IN) | payer SELFPAY ==
[~2019-01-25 22:59] MED LIST: ISOVUE-370 76%-LOCM 1 ML ONE
[2019-01-25 23:27] LABS: Bilirubin Negative (Negative); Blood, Urine Small (Negative); Clarity CLEAR (Clear); Glucose, Urine (Dipstick) >=1000 mg/dL (Negative); Leukocyte Moderate (Negative); Nitrite Positive (Negative); Protein, Urine (Dipstick) Negative (Neg-Trace); Specific Gravity, Urine 1.024 (1.002-1.036)
[2019-01-25 23:29] LABS: Bacteria/HPF 4+ HPF (None Seen); Hyaline Casts/LPF 0-3 HYALINE CAST LPF (0-3 Hyaline); Squamous Epithelial 0-3 HPF (0-3)
[2019-01-25 23:41] LABS: Yeast-All Forms None Seen HPF (None Seen)
[2019-01-25 23:53] LABS: #Basophils 0.1 thou/uL (0.0-0.2); #Lymphocytes 1.1 thou/uL (1.20-3.40); #Monocytes 0.6 thou/uL (0.11-0.59); #Neutrophils 4.8 thou/uL (1.40-6.50); %Eosinophils 0.2 % (0.0-10.0); %Lymphocytes 16.7 % (21.0-51.0); %Neutrophils 73.1 % (42.0-75.0); Hemoglobin 14.4 g/dL (12.0-16.0); Mean Corpuscular HGB CONC 33.9 g/dL (32.0-36.0); Mean Corpuscular Hemoglobin 31.8 pg (27.0-31.0); Mean Corpuscular Volume 93.7 fL (78.0-98.0); Mean Platelet Volume 7.9 fL (7.4-10.4); Platelet Count 182 thou/uL (130-400); Red Blood Cell (RBC) Count 4.54 mill/uL (4.20-5.40); White Blood Cell (WBC) Count 6.6 thou/uL (4.8-10.8)
--- NOTE | 2019-01-25 23:57 | CT ---
Contrast-enhanced images abdomen pelvis. HISTORY: Left-sided flank pain. Contrast-enhanced CT images of the abdomen pelvis obtained. Comparison made to previous exam from 08/08/2018. Bibasilar areas of lung interstitial fibrosis seen. Large calcified granuloma seen in the left lower lobe. No evidence of free intraperitoneal air seen. The liver is unremarkable. Gallstone seen in the gallbladder neck. Again duodenal diverticulum is noted. A large left adrenal lesion most compatible with a adenoma again seen. The pancreas is unremarkable. The small bowel loops are mildly thickened in the demonstrate enhancement less pronounced than on the previous exam. This is compatible with mild enteritis. Some colonic diverticulosis is present on the descending sigmoid colon. No evidence of periaortic lymphadenopathy seen. The SMA and SMV are patent. IMPRESSION: Mildly enhancing small bowel loops concerning for enteritis.
--- NOTE | 2019-01-26 00:07 | RAD ---
2 views chest. HISTORY: Flank pain. PA and lateral views of the chest is obtained. Comparison made to previous exam from September 22, 2011 . PA and lateral views of the chest demonstrate a calcified granuloma in the left lower lobe. Lung parenchymal interstitial fibrosis seen. No evidence of acute intrathoracic abnormality seen. No evidence of effusions, pneumonia or pneumotho rax seen. IMPRESSION: No evidence of acute intrathoracic disease seen.
[2019-01-26 00:15] LABS: ALT (SGPT) 38 U/L (8-55); AST (SGOT) 22 U/L (5-34); Albumin 4.2 g/dL (3.5-5.0); Alkaline Phosphatase 177 U/L (40-150); Anion Gap 16 mmol/L (10-20); BUN (Urea Nitrogen) 15 mg/dL (9.8-20.1); Bilirubin, Total 0.8 mg/dL (0.2-1.2); Calc. Creatinine Clearance 0 mL/min (70-130); Calcium 9.5 mg/dL (7.8-10.44); Carbon Dioxide 24 mmol/L (22-29); Chloride 96 mmol/L (98-107); Estimated GFR-MDRD 58; Globulin 3.5 g/dL (2.4-3.5); Glucose 400 mg/dL (70-105); Potassium 3.9 mmol/L (3.5-5.1); Protein, Total 7.7 g/dL (6.0-8.3); Sodium 132 mmol/L (136-145)
[2019-01-26] MEDS ORDERED: MEROPENEM 1 GM/50 ML BAG IVPB SCH (00:45)
[2019-01-26 02:39] VITALS: BMI 27.3
[2019-01-26] MEDS ORDERED: Dextrose 50% Abboject 50 ML SYRINGE SLOW IVP PRN (04:11)
[2019-01-26] MEDS ORDERED: Dextrose 5% in Water 1,000 ML IV PRN (04:11)
[2019-01-26] MEDS: Sodium Chloride 0.9% 1,000 ML IV SCH ×2 (04:29→14:37)
[2019-01-26] MEDS: HumaLOG 300 UNITS/3 ML VIAL SC PRN ×3 (04:33→17:02)
[2019-01-26] MEDS: Ondansetron PF 4 MG/2 ML Vial IVP PRN (04:36)
[2019-01-26] MEDS: MEROPENEM 1 GM/50 ML 1 GM in Premix Bag 1 BAG IVPB SCH ×3 (08:33→23:57)
[2019-01-26] MEDS ORDERED: PROVENTIL INHALER 6.7 G (200 INHALATIONS) INH PRN (12:30)
[2019-01-26] MEDS: Acetaminophen 325 MG TAB PO PRN ×2 (12:32→18:58)
--- NOTE | 2019-01-26 13:02 | HP ---
PRIMARY CARE PROVIDER: Dr. Melvin García. CHIEF COMPLAINT: Left flank pain. HISTORY OF PRESENT ILLNESS: Ms. Ortiz is a pleasant 58-year-old lady, who was seen at [facility] on January 26, 2019. She reports that yesterday she started having fever. She also reports pain over her left flank, but is unable to describe it further. She described it as "twinge" and is unable to characterize it further. She reports that she had a temperature of 104.5 degrees Fahrenheit at home. She took ibuprofen, but the fever only improved slightly. She denies any cough. She denies any dysuria. She reports nausea, but no vomiting. She denies any diarrhea. She denies any chest pain or palpitations. REVIEW OF SYSTEMS: All other systems reviewed and found to be negative. PAST MEDICAL HISTORY: Diabetes mellitus, COPD, and peripheral vascular disease. PAST SURGICAL HISTORY: section x2, hysterectomy, and stent placement in the leg. SOCIAL HISTORY: The patient denies tobacco use, alcohol use, or recreational drug use. FAMILY HISTORY: Mother at age of 62 from lung cancer. Father has heart disease. ALLERGIES: PENICILLIN AND SULFA. CURRENT MEDICATIONS: 1. Ventolin HFA p.r.n. 2. Aspirin 81 mg daily. 3. Multivitamins one tablet daily. 4. Prilosec 20 mg daily. 5. Metformin XR 1000 mg 2 times a day. PHYSICAL EXAMINATION: GENERAL: On examination, Ms. Ortiz is awake and alert, not in acute distress. VITAL SIGNS: She is currently afebrile, although earlier, she had a temperature of 102.7 degrees Fahrenheit. Pulse is 74, respiratory rate 18, and oxygen saturation 95% on room air. Earlier, she had a pulse of 103. Blood pressure is 100/62. EYES: No scleral icterus, no conjunctival pallor. ENT: Moist mucosal membranes. No oropharyngeal erythema or exudates. NECK: Supple, nontender, trachea is midline. RESPIRATORY: Accessory muscles of breathing are not active. Chest wall movements are symmetric bilaterally. Lungs are clear to auscultation without wheeze, rhonchi, or crepitations. CARDIOVASCULAR: S1 and S2 are heard, regular. Peripheral pulses palpable. No carotid bruit. No pericardial rub. ABDOMEN: Soft, she has mild left costovertebral angle tenderness, bowel sounds heard. NEUROLOGIC: Cranial nerves 2 through 12 are intact. SKIN: No rashes or subcutaneous nodules. LYMPHATIC: No cervical lymphadenopathy. PSYCHIATRIC: Normal mood, normal affect, the patient is oriented to person, place, and time. LABORATORY DATA: Ms. Ortiz's labs and investigations were reviewed. Chest x-ray did not show any pulmonary infiltrates. CT scan of the abdomen and pelvis showed mildly enhancing small bowel loops concerning for enteritis. She had a large left adrenal lesion most compatible with adenoma, also seen on prior studies. She has normal white count, normal hemoglobin, normal platelet count, decreased sodium of 132, normal potassium, normal creatinine, elevated alkaline phosphatase of 177, it was 206 in September 2018, otherwise unremarkable liver profile, normal lactic acid level of 1.7, and urinalysis that is positive for nitrite and leukocyte esterase. ASSESSMENT AND PLAN: Ms. Ortiz is a pleasant 58-year-old lady, who was seen at [facility] on January 26, 2019. Her problem list includes: 1. Sepsis: Ms. Ortiz is presenting with sepsis, most likely secondary to urinary tract infection. She will be admitted to the hospital. She will receive intravenous fluids and intravenous antibiotics. 2. Urinary tract infection: The patient has been started on meropenem, which I will continue. In the past, she has had urinary tract infections with Proteus and Escherichia coli. We will follow urine cultures and adjust antibiotics as needed. 3. Diabetes mellitus, type 2: We will start the patient on Accu-Cheks and insulin sliding scale. 4. Chronic obstructive pulmonary disease: This appears to be stable. 5. Peripheral vascular disease: This appears to be stable as well. Many thanks for allowing me to participate in your patient's care. Please feel free to contact me with any questions or concerns. LEVEL OF RISK: Moderate. LEVEL OF COMPLEXITY: Moderate. Job ID: [id number]
[2019-01-26] MEDS: metFORMIN XR 500 MG TAB PO SCH (20:22)
[2019-01-27] MEDS: Acetaminophen 325 MG TAB PO PRN ×3 (05:59→20:52)
[2019-01-27] MEDS: Ondansetron PF 4 MG/2 ML Vial IVP PRN (06:03)
[2019-01-27] MEDS: HumaLOG 300 UNITS/3 ML VIAL SC PRN ×4 (06:04→20:52)
[2019-01-27 08:28] LABS: #Lymphocytes 1.1 thou/uL (1.20-3.40); #Monocytes 0.7 thou/uL (0.11-0.59); #Neutrophils 3.6 thou/uL (1.40-6.50); %Basophils 0.4 % (0.0-1.0); %Eosinophils 0.8 % (0.0-10.0); %Monocytes 12.4 % (0.0-10.0); %Neutrophils 66.5 % (42.0-75.0); Hemoglobin 11.2 g/dL (12.0-16.0); Mean Corpuscular HGB CONC 34.9 g/dL (32.0-36.0); Mean Corpuscular Hemoglobin 32.8 pg (27.0-31.0); Mean Corpuscular Volume 94.1 fL (78.0-98.0); Mean Platelet Volume 7.5 fL (7.4-10.4); Platelet Count 164 thou/uL (130-400); Red Blood Cell (RBC) Count 3.41 mill/uL (4.20-5.40); White Blood Cell (WBC) Count 5.5 thou/uL (4.8-10.8)
[2019-01-27 08:29] LABS: ALT (SGPT) 43 U/L (8-55); AST (SGOT) 34 U/L (5-34); Alkaline Phosphatase 118 U/L (40-150); Anion Gap 9 mmol/L (10-20); BUN (Urea Nitrogen) 6 mg/dL (9.8-20.1); Bilirubin, Total 0.6 mg/dL (0.2-1.2); Calc. Creatinine Clearance 93 mL/min (70-130); Calcium 8.3 mg/dL (7.8-10.44); Carbon Dioxide 22 mmol/L (22-29); Chloride 103 mmol/L (98-107); Estimated GFR-MDRD 86; Globulin 2.5 g/dL (2.4-3.5); Glucose 233 mg/dL (70-105); Potassium 3.4 mmol/L (3.5-5.1); Protein, Total 5.5 g/dL (6.0-8.3); Sodium 131 mmol/L (136-145)
[2019-01-27] MEDS: MEROPENEM 1 GM/50 ML 1 GM in Premix Bag 1 BAG IVPB SCH ×3 (08:56→23:52)
[2019-01-27] MEDS: metFORMIN XR 500 MG TAB PO SCH ×3 (09:00→16:36)
[2019-01-27] MEDS: Multivitamin W/ Minerals 1 TAB PO SCH (09:00)
[2019-01-27] MEDS: Aspirin 81 mg Enteric Coated Tablet PO SCH (09:00)
[2019-01-27] MEDS: Sodium Chloride 0.9% 1,000 ML IV SCH ×4 (12:17→23:55)
--- NOTE | 2019-01-27 12:53 | PDOC.PN ---
- Subjective Encounter Start Date: 01/27/19 Encounter Start Time: 09:00 Subjective: had left lumbar area pain radiating to groin on arrival -: no diarrhea or blood in stools -: denies urinary freq or urgency - Objective MAR Reviewed: Yes Vital Signs & Weight: Vital Signs (12 hours) Temp Pulse Resp BP Pulse Ox 01/27/19 12:12 98.8 F 81 18 122/77 93 L 01/27/19 08:00 94 L 01/27/19 07:22 99.2 F 82 16 104/64 94 L 01/27/19 04:11 101.9 F H 99 16 152/83 H Weight Weight 149 lb 14.629 oz I&O: 01/26/19 01/27/19 01/28/19 06:59 06:59 06:59 Intake Total 1000 480 240 Balance 1000 480 240 Result Diagrams: 01/27/19 07:45 01/27/19 07:45 Additional Labs: Accuchecks 01/27/19 01/27/19 01/26/19 12:11 05:30 20:03 POC Glucose 245 H 245 H 295 H 01/26/19 16:56 POC Glucose 256 H Phys Exam - Physical Examination HEENT: PERRLA, moist MMs Neck: no JVD, supple Respiratory: no wheezing, no rales Cardiovascular: RRR, no significant murmur Gastrointestinal: soft, non-tender, positive bowel sounds Musculoskeletal: no edema, pulses present Neurological: non-focal, moves all 4 limbs Psychiatric: normal affect, A&O x 3 Dx/Plan (1) Bacteremia due to Escherichia coli Code(s): R78.81 - BACTEREMIA Status: Acute (2) Sepsis Code(s): A41.9 - SEPSIS, UNSPECIFIED ORGANISM Status: Acute Qualifiers: Sepsis type: Escherichia coli Qualified Code(s): A41.51 - Sepsis due to Escherichia coli [E. coli] (3) Urinary tract infection Status: Acute Qualifiers: Urinary tract infection type: acute cystitis Hematuria presence: without hematuria Qualified Code(s): N30.00 - Acute cystitis without hematuria (4) COPD (chronic obstructive pulmonary disease) Status: Chronic Qualifiers: COPD type: chronic bronchitis (5) GERD (gastroesophageal reflux disease) Code(s): K21.9 - GASTRO-ESOPHAGEAL REFLUX DISEASE WITHOUT ESOPHAGITIS Status: Chronic Qualifiers: Esophagitis presence: esophagitis presence not specified Qualified Code(s) : K21.9 - Gastro-esophageal reflux disease without esophagitis (6) DM type 2 (diabetes mellitus, type 2) Status: Chronic Qualifiers: Diabetes mellitus long term care administrator insulin use: without long term care administrator use Diabetes mellitus complication status: with unspecified complications Qualified Code(s) : E11.8 - Type 2 diabetes mellitus with unspecified complications (7) HTN (hypertension) Code(s): I10 - ESSENTIAL (PRIMARY) HYPERTENSION Status: Chronic Qualifiers: Hypertension type: essential hypertension (8) PVD (peripheral vascular disease) Code(s): I73.9 - PERIPHERAL VASCULAR DISEASE, UNSPECIFIED Status: Chronic Comment: prior stent to b/l LE arteries - Plan await full cultures, CT shows enteritis but pt is asymptomatic -: stool studies if diarrhea occurs -: is on meropenem, gentle iv fluids -: continue metformin, asp for now -: mobilize as tolerated in room * . Review of Systems - Medications/Allergies Allergies/Adverse Reactions: Allergies Allergy/AdvReac Type Severity Reaction Status Date / Time Sulfa (Sulfonamide Allergy Severe WELPS Verified 11/03/17 16:41 Antibiotics) Penicillins Allergy Intermediate PT DOESN'T Verified 11/03/17 16:41 REMEMBER HAPPENED CHILD Medications: Current Medications Acetaminophen (Tylenol) 650 mg PO Q6H PRN PRN Reason: Mild Pain (1-3) Last Admin: 01/27/19 05:59 Dose: 650 mg Albuterol Sulfate (Proventil Hfa) 2 puff INH PRN PRN PRN Reason: SOB &/or Wheezing Aspirin (Ecotrin) 81 mg PO DAILY [facility] Last Admin: 01/27/19 09:00 Dose: 81 mg Dextrose/Water (Dextrose 50%) 25 gm SLOW IVP PRN PRN PRN Reason: Hypoglycemia Glucagon (Glucagon) 1 mg IM PRN PRN PRN Reason: Hypoglycemia Dextrose/Water (D5w) 1,000 mls @ 0 mls/hr IV .Q0M PRN PRN Reason: Hypoglycemia Meropenem 1 gm/ Device 50 mls @ 200 mls/hr IVPB [id number] [facility] Last Admin: 01/27/19 08:56 Dose: 50 mls Sodium Chloride (Normal Saline 0.9%) 1,000 mls @ 50 mls/hr IV .Q20H [facility] Insulin Human Lispro (Humalog) 0 units SC .MILD SLIDING SCALE PRN PRN Reason: Mild Correctional Scale Last Admin: 01/27/19 12:17 Dose: 3 unit Iron/Minerals/Multivitamins (Theragran M) 1 tab PO DAILY [facility] Last Admin: 01/27/19 09:00 Dose: 1 tab Metformin HCl (Glucophage Xr) 1,000 mg PO BID-WM [facility] Last Admin: 01/27/19 09:00 Dose: 1,000 mg Ondansetron HCl (Zofran) 4 mg IVP Q6H PRN PRN Reason: Nausea/Vomiting Last Admin: 01/27/19 06:03 Dose: 4 mg Pantoprazole Sodium (Protonix) 40 mg PO DAILY [facility] Last Admin: 01/27/19 09:00 Dose: 40 mg Sodium Chloride (Flush - Normal Saline) 10 ml IVF Q12HR [facility] Last Admin: 01/27/19 09:00 Dose: 10 ml Sodium Chloride (Flush - Normal Saline) 10 ml IVF PRN PRN PRN Reason: Saline Flush
[2019-01-28] MEDS: HumaLOG 300 UNITS/3 ML VIAL SC PRN ×3 (04:49→20:41)
[2019-01-28 06:14] LABS: #Eosinphils 0.1 thou/uL (0.0-0.7); #Lymphocytes 0.7 thou/uL (1.20-3.40); #Monocytes 0.6 thou/uL (0.11-0.59); #Neutrophils 2.7 thou/uL (1.40-6.50); %Basophils 1.2 % (0.0-1.0); %Eosinophils 1.6 % (0.0-10.0); %Lymphocytes 16.6 % (21.0-51.0); %Monocytes 13.5 % (0.0-10.0); %Neutrophils 67.1 % (42.0-75.0); Hemoglobin 12.5 g/dL (12.0-16.0); Mean Corpuscular HGB CONC 35.5 g/dL (32.0-36.0); Mean Corpuscular Hemoglobin 33.7 pg (27.0-31.0); Mean Corpuscular Volume 94.9 fL (78.0-98.0); Mean Platelet Volume 7.4 fL (7.4-10.4); Platelet Count 159 thou/uL (130-400); RBC Distribution Width 11.2 % (11.5-14.5); Red Blood Cell (RBC) Count 3.72 mill/uL (4.20-5.40); White Blood Cell (WBC) Count 4.1 thou/uL (4.8-10.8)
[2019-01-28 06:34] LABS: Anion Gap 14 mmol/L (10-20); BUN (Urea Nitrogen) 5 mg/dL (9.8-20.1); Calc. Creatinine Clearance 86 mL/min (70-130); Calcium 8.5 mg/dL (7.8-10.44); Carbon Dioxide 19 mmol/L (22-29); Chloride 103 mmol/L (98-107); Estimated GFR-MDRD 78; Glucose 248 mg/dL (70-105); Potassium 3.8 mmol/L (3.5-5.1); Sodium 132 mmol/L (136-145)
[2019-01-28] MEDS: MEROPENEM 1 GM/50 ML 1 GM in Premix Bag 1 BAG IVPB SCH (08:08)
[2019-01-28] MEDS: Aspirin 81 mg Enteric Coated Tablet PO SCH (08:09)
[2019-01-28] MEDS: Multivitamin W/ Minerals 1 TAB PO SCH (08:09)
[2019-01-28] MEDS: metFORMIN XR 500 MG TAB PO SCH ×2 (08:09→16:48)
[2019-01-28] MEDS: Acetaminophen 325 MG TAB PO PRN ×2 (08:09→20:21)
[2019-01-28] MEDS: Sodium Chloride 0.9% 1,000 ML IV SCH (08:13)
--- NOTE | 2019-01-28 13:37 | PDOC.PN ---
- Subjective Encounter Start Date: 01/28/19 Encounter Start Time: 11:15 Subjective: feels better, no sob -: is eating better, no nausea or abd pain -: had 3 episodes of loose stool this am, no blood in it - Objective MAR Reviewed: Yes Vital Signs & Weight: Vital Signs (12 hours) Temp Pulse Resp BP BP Pulse Ox 01/28/19 11:55 98.3 F 71 20 124/79 96 01/28/19 09:40 99.4 F 01/28/19 08:08 95 01/28/19 07:57 102.2 F H 96 18 138/78 95 01/28/19 04:00 98.1 F Weight Weight 149 lb 14.629 oz I&O: 01/27/19 01/28/19 01/29/19 06:59 06:59 06:59 Intake Total 480 1340 Balance 480 1340 Result Diagrams: 01/28/19 05:41 01/28/19 05:41 Additional Labs: Accuchecks 01/28/19 01/28/19 01/27/19 11:37 04:47 20:00 POC Glucose 242 H 332 H 234 H 01/27/19 16:27 POC Glucose 218 H Phys Exam - Physical Examination HEENT: PERRLA, moist MMs Neck: no JVD, supple Respiratory: no wheezing, no rales Cardiovascular: RRR, no significant murmur Gastrointestinal: soft, non-tender, positive bowel sounds Musculoskeletal: no edema, pulses present Neurological: non-focal, moves all 4 limbs Psychiatric: normal affect, A&O x 3 Dx/Plan (1) Bacteremia due to Escherichia coli Code(s): R78.81 - BACTEREMIA Status: Acute (2) Sepsis Code(s): A41.9 - SEPSIS, UNSPECIFIED ORGANISM Status: Acute Qualifiers: Sepsis type: Escherichia coli Qualified Code(s): A41.51 - Sepsis due to Escherichia coli [E. coli] (3) Urinary tract infection Status: Acute Qualifiers: Urinary tract infection type: acute cystitis Hematuria presence: without hematuria Qualified Code(s): N30.00 - Acute cystitis without hematuria (4) COPD (chronic obstructive pulmonary disease) Status: Chronic Qualifiers: COPD type: chronic bronchitis (5) GERD (gastroesophageal reflux disease) Code(s): K21.9 - GASTRO-ESOPHAGEAL REFLUX DISEASE WITHOUT ESOPHAGITIS Status: Chronic Qualifiers: Esophagitis presence: esophagitis presence not specified Qualified Code(s) : K21.9 - Gastro-esophageal reflux disease without esophagitis (6) DM type 2 (diabetes mellitus, type 2) Status: Chronic Qualifiers: Diabetes mellitus intermediate insulin use: without intermediate use Diabetes mellitus complication status: with unspecified complications Qualified Code(s) : E11.8 - Type 2 diabetes mellitus with unspecified complications (7) HTN (hypertension) Code(s): I10 - ESSENTIAL (PRIMARY) HYPERTENSION Status: Chronic Qualifiers: Hypertension type: essential hypertension (8) PVD (peripheral vascular disease) Code(s): I73.9 - PERIPHERAL VASCULAR DISEASE, UNSPECIFIED Status: Chronic Comment: prior stent to b/l LE arteries - Plan e.coli is sensitive to quinolones -: still has fever upto 102 -: dc iv fluids, counselled to drink more fluids -: to amb in hallway as tolerated -: add lantus 10 u bid, continue metformin and aspirin * . Review of Systems - Medications/Allergies Allergies/Adverse Reactions: Allergies Allergy/AdvReac Type Severity Reaction Status Date / Time Sulfa (Sulfonamide Allergy Severe WELPS Verified 11/03/17 16:41 Antibiotics) Penicillins Allergy Intermediate PT DOESN'T Verified 11/03/17 16:41 REMEMBER HAPPENED CHILD Medications: Current Medications Acetaminophen (Tylenol) 650 mg PO Q6H PRN PRN Reason: Mild Pain (1-3) Last Admin: 01/28/19 08:09 Dose: 650 mg Albuterol Sulfate (Proventil Hfa) 2 puff INH PRN PRN PRN Reason: SOB &/or Wheezing Aspirin (Ecotrin) 81 mg PO DAILY [facility] Last Admin: 01/28/19 08:09 Dose: 81 mg Dextrose/Water (Dextrose 50%) 25 gm SLOW IVP PRN PRN PRN Reason: Hypoglycemia Glucagon (Glucagon) 1 mg IM PRN PRN PRN Reason: Hypoglycemia Dextrose/Water (D5w) 1,000 mls @ 0 mls/hr IV .Q0M PRN PRN Reason: Hypoglycemia Ciprofloxacin/Dextrose 400 mg/ (Device) 200 mls @ 200 mls/hr IVPB Q12HR [facility] Last Admin: 01/28/19 09:35 Dose: 200 mls Insulin Glargine 10 units/ (Miscellaneous Medication) 0.1 mls @ 0 mls/hr SC BID [facility] Insulin Human Lispro (Humalog) 0 units SC .MILD SLIDING SCALE PRN PRN Reason: Mild Correctional Scale Last Admin: 01/28/19 12:44 Dose: 3 unit Iron/Minerals/Multivitamins (Theragran M) 1 tab PO DAILY [facility] Last Admin: 01/28/19 08:09 Dose: 1 tab Metformin HCl (Glucophage Xr) 1,000 mg PO BID-[facility] Last Admin: 01/28/19 08:09 Dose: 1,000 mg Ondansetron HCl (Zofran) 4 mg IVP Q6H PRN PRN Reason: Nausea/Vomiting Last Admin: 01/27/19 06:03 Dose: 4 mg Pantoprazole Sodium (Protonix) 40 mg PO DAILY [facility] Last Admin: 01/28/19 08:09 Dose: Not Given Sodium Chloride (Flush - Normal Saline) 10 ml IVF Q12HR [facility] Last Admin: 01/28/19 08:12 Dose: 10 ml Sodium Chloride (Flush - Normal Saline) 10 ml IVF PRN PRN PRN Reason: Saline Flush
[2019-01-28] MEDS: Insulin Glargine 10 UNITS in Pre-Filled Syringe SC SCH (20:39)
[2019-01-29] MEDS: Multivitamin W/ Minerals 1 TAB PO SCH (07:45)
[2019-01-29] MEDS: Aspirin 81 mg Enteric Coated Tablet PO SCH (07:45)
[2019-01-29] MEDS: Acetaminophen 325 MG TAB PO PRN ×2 (07:45→20:33)
[2019-01-29] MEDS: metFORMIN XR 500 MG TAB PO SCH ×2 (07:45→17:26)
[2019-01-29] MEDS: Insulin Glargine 10 UNITS in Pre-Filled Syringe SC SCH ×2 (09:24→20:24)
[2019-01-29] MEDS: HumaLOG 300 UNITS/3 ML VIAL SC PRN ×2 (12:52→17:27)
--- NOTE | 2019-01-29 12:56 | PDOC.PN ---
- Subjective Encounter Start Date: 01/29/19 Encounter Start Time: 07:00 Subjective: no fever this am -: no sob or diarrhea - Objective MAR Reviewed: Yes Vital Signs & Weight: Vital Signs (12 hours) Temp Pulse Resp BP Pulse Ox 01/29/19 11:48 99.4 F 01/29/19 09:23 98.7 F 01/29/19 07:40 100.0 F H 87 20 147/79 H 95 01/29/19 04:00 97.8 F Weight Weight 149 lb 14.629 oz I&O: 01/28/19 01/29/19 01/30/19 06:59 06:59 06:59 Intake Total 1340 2400 Balance 1340 2400 Result Diagrams: 01/28/19 05:41 01/28/19 05:41 Additional Labs: Accuchecks 01/29/19 01/29/19 01/28/19 11:42 04:13 20:07 POC Glucose 276 H 181 H 218 H 01/28/19 16:12 POC Glucose 120 H Phys Exam - Physical Examination HEENT: PERRLA, moist MMs Neck: no JVD, supple Respiratory: no wheezing, no rales Cardiovascular: RRR, no significant murmur Gastrointestinal: soft, non-tender, positive bowel sounds Musculoskeletal: no edema, pulses present Neurological: non-focal, moves all 4 limbs Psychiatric: normal affect, A&O x 3 Dx/Plan (1) Bacteremia due to Escherichia coli Code(s): R78.81 - BACTEREMIA Status: Acute (2) Sepsis Code(s): A41.9 - SEPSIS, UNSPECIFIED ORGANISM Status: Acute Qualifiers: Sepsis type: Escherichia coli Qualified Code(s): A41.51 - Sepsis due to Escherichia coli [E. coli] (3) Urinary tract infection Status: Acute Qualifiers: Urinary tract infection type: acute cystitis Hematuria presence: without hematuria Qualified Code(s): N30.00 - Acute cystitis without hematuria (4) COPD (chronic obstructive pulmonary disease) Status: Chronic Qualifiers: COPD type: chronic bronchitis (5) GERD (gastroesophageal reflux disease) Code(s): K21.9 - GASTRO-ESOPHAGEAL REFLUX DISEASE WITHOUT ESOPHAGITIS Status: Chronic Qualifiers: Esophagitis presence: esophagitis presence not specified Qualified Code(s) : K21.9 - Gastro-esophageal reflux disease without esophagitis (6) DM type 2 (diabetes mellitus, type 2) Status: Chronic Qualifiers: 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: without usp use Diabetes mellitus complication status: with unspecified complications Qualified Code(s) : E11.8 - Type 2 diabetes mellitus with unspecified complications (7) HTN (hypertension) Code(s): I10 - ESSENTIAL (PRIMARY) HYPERTENSION Status: Chronic Qualifiers: Hypertension type: essential hypertension (8) PVD (peripheral vascular disease) Code(s): I73.9 - PERIPHERAL VASCULAR DISEASE, UNSPECIFIED Status: Chronic Comment: prior stent to b/l LE arteries - Plan is on cipro, fever is slowly subsiding -: dc plan in am -: hemostable -: to ambulate in hallway, is drinking oral liqs well -: continue asp, metformin * . Review of Systems - Medications/Allergies Allergies/Adverse Reactions: Allergies Allergy/AdvReac Type Severity Reaction Status Date / Time Sulfa (Sulfonamide Allergy Severe WELPS Verified 11/03/17 16:41 Antibiotics) Penicillins Allergy Intermediate PT DOESN'T Verified 11/03/17 16:41 REMEMBER HAPPENED CHILD Medications: Current Medications Acetaminophen (Tylenol) 650 mg PO Q6H PRN PRN Reason: Mild Pain (1-3) Last Admin: 01/29/19 07:45 Dose: 650 mg Albuterol Sulfate (Proventil Hfa) 2 puff INH PRN PRN PRN Reason: SOB &/or Wheezing Aspirin (Ecotrin) 81 mg PO DAILY [facility] Last Admin: 01/29/19 07:45 Dose: 81 mg Dextrose/Water (Dextrose 50%) 25 gm SLOW IVP PRN PRN PRN Reason: Hypoglycemia Glucagon (Glucagon) 1 mg IM PRN PRN PRN Reason: Hypoglycemia Dextrose/Water (D5w) 1,000 mls @ 0 mls/hr IV .Q0M PRN PRN Reason: Hypoglycemia Ciprofloxacin/Dextrose 400 mg/ (Device) 200 mls @ 200 mls/hr IVPB Q12HR [facility] Last Admin: 01/29/19 07:46 Dose: 200 mls Insulin Glargine 10 units/ (Miscellaneous Medication) 0.1 mls @ 0 mls/hr SC BID [facility] Last Admin: 01/29/19 09:24 Dose: 0.1 mls Insulin Human Lispro (Humalog) 0 units SC .MILD SLIDING SCALE PRN PRN Reason: Mild Correctional Scale Last Admin: 01/29/19 12:52 Dose: 4 unit Iron/Minerals/Multivitamins (Theragran M) 1 tab PO DAILY [facility] Last Admin: 01/29/19 07:45 Dose: 1 tab Metformin HCl (Glucophage Xr) 1,000 mg PO BID-[facility] Last Admin: 01/29/19 07:45 Dose: 1,000 mg Ondansetron HCl (Zofran) 4 mg IVP Q6H PRN PRN Reason: Nausea/Vomiting Last Admin: 01/27/19 06:03 Dose: 4 mg Pantoprazole Sodium (Protonix) 40 mg PO DAILY [facility] Last Admin: 01/29/19 07:45 Dose: 40 mg Sodium Chloride (Flush - Normal Saline) 10 ml IVF Q12HR [facility] Last Admin: 01/29/19 07:47 Dose: 10 ml Sodium Chloride (Flush - Normal Saline) 10 ml IVF PRN PRN PRN Reason: Saline Flush
[2019-01-29] MEDS ORDERED: Melatonin 3 MG TAB PO PRN (23:20)
[2019-01-30] MEDS: HumaLOG 300 UNITS/3 ML VIAL SC PRN (06:23)
[2019-01-30 07:50] VITALS: BP 130/70; TEMP 98.1
[2019-01-30] MEDS: Aspirin 81 mg Enteric Coated Tablet PO SCH (08:30)
[2019-01-30] MEDS: metFORMIN XR 500 MG TAB PO SCH (08:30)
[2019-01-30] MEDS: Multivitamin W/ Minerals 1 TAB PO SCH (08:31)
[2019-01-30] MEDS: Insulin Glargine 10 UNITS in Pre-Filled Syringe SC SCH (08:42)
--- NOTE | 2019-01-30 11:15 | PDOC.PN ---
- Subjective Encounter Start Date: 01/30/19 Encounter Start Time: 08:45 Subjective: feels better, no complaints - Objective MAR Reviewed: Yes Vital Signs & Weight: Vital Signs (12 hours) Temp Pulse Resp BP Pulse Ox 01/30/19 08:00 98.1 F 77 20 01/30/19 07:49 98.1 F 77 20 130/70 96 01/30/19 06:00 97.9 F Weight Weight 149 lb 14.629 oz I&O: 01/29/19 01/30/19 01/31/19 06:59 06:59 06:59 Intake Total 2400 2700 240 Balance 2400 2700 240 Result Diagrams: 01/28/19 05:41 01/28/19 05:41 Additional Labs: Accuchecks 01/30/19 01/29/19 01/29/19 05:15 20:25 16:37 POC Glucose 236 H 232 H 191 H 01/29/19 11:42 POC Glucose 276 H Phys Exam - Physical Examination HEENT: PERRLA, moist MMs Neck: no JVD, supple Respiratory: no wheezing, no rales Cardiovascular: RRR, no significant murmur Gastrointestinal: soft, non-tender, positive bowel sounds Musculoskeletal: no edema, pulses present Neurological: non-focal, moves all 4 limbs Psychiatric: normal affect, A&O x 3 Dx/Plan (1) Bacteremia due to Escherichia coli Code(s): R78.81 - BACTEREMIA Status: Acute (2) Sepsis Code(s): A41.9 - SEPSIS, UNSPECIFIED ORGANISM Status: Acute Qualifiers: Sepsis type: Escherichia coli Qualified Code(s): A41.51 - Sepsis due to Escherichia coli [E. coli] (3) Urinary tract infection Status: Acute Qualifiers: Urinary tract infection type: acute cystitis Hematuria presence: without hematuria Qualified Code(s): N30.00 - Acute cystitis without hematuria (4) COPD (chronic obstructive pulmonary disease) Status: Chronic Qualifiers: COPD type: chronic bronchitis (5) GERD (gastroesophageal reflux disease) Code(s): K21.9 - GASTRO-ESOPHAGEAL REFLUX DISEASE WITHOUT ESOPHAGITIS Status: Chronic Qualifiers: Esophagitis presence: esophagitis presence not specified Qualified Code(s) : K21.9 - Gastro-esophageal reflux disease without esophagitis (6) DM type 2 (diabetes mellitus, type 2) Status: Chronic Qualifiers: Diabetes mellitus long-term insulin use: without long-term use Diabetes mellitus complication status: with unspecified complications Qualified Code(s) : E11.8 - Type 2 diabetes mellitus with unspecified complications (7) HTN (hypertension) Code(s): I10 - ESSENTIAL (PRIMARY) HYPERTENSION Status: Chronic Qualifiers: Hypertension type: essential hypertension (8) PVD (peripheral vascular disease) Code(s): I73.9 - PERIPHERAL VASCULAR DISEASE, UNSPECIFIED Status: Chronic Comment: prior stent to b/l LE arteries - Plan hemostable -: cipro x 10 days -: dc pt home -: to f/u with PCP in 1 week -: add glipizide to metformin * .
--- NOTE | 2019-01-30 16:03 | DIS ---
DATE OF ADMISSION: 01/26/2019 DATE OF DISCHARGE: 01/30/2019 DISCHARGE DISPOSITION: To home. PRIMARY DISCHARGE DIAGNOSES: 1. Escherichia coli bacteremia with sepsis. 2. Urinary tract infection with the same organism. SECONDARY DISCHARGE DIAGNOSES: 1. Chronic obstructive pulmonary disease. 2. Diabetes mellitus, type 2. 3. Hypertension. 4. Gastroesophageal reflux disease. 5. Peripheral vascular disease with prior stenting to lower extremities. PROCEDURES DONE DURING HOSPITALIZATION: Chest x-ray done showed no evidence of acute intrathoracic disease. CT of the abdomen and pelvis with contrast done showed mildly enhancing small bowel loops concerning for enteritis. A large left adrenal lesion, most compatible with adenoma was seen. Blood cultures 1/2 grew E coli resistant to ampicillin, but sensitive to all other antibiotics. Urine culture grew E coli with similar sensitivity pattern. Stool for C difficile, Shiga toxin, Campylobacter were all negative. Discharge H and H 12 and 35, white count of 4.1 on the day of discharge with platelet count of 159. BUN and creatinine on the 24th were 5 and 0.7. AST and ALT were within normal limits. DISCHARGE MEDICATIONS: 1. Ciprofloxacin 500 mg p.o. twice daily for 10 days. 2. Glipizide 5 mg p.o. daily. 3. Metformin extended release 1000 mg twice daily. 4. Omeprazole 20 mg daily. 5. Multivitamin with folic acid one tab daily. 6. Aspirin 81 mg p.o. daily. 7. Albuterol inhaler q.6 hourly p.r.n. ALLERGIES: ALLERGIC TO SULFA AND PENICILLIN. DISCHARGE PLAN: The patient to follow up with primary care physician in 1 week. BRIEF COURSE DURING HOSPITALIZATION: The patient initially got admitted with complaints of left flank pain. She had a temperature of 104 degrees at home. On arrival, the patient had temperatures of 102.7 degrees in the ER. The patient was essentially admitted for sepsis and later her blood cultures 1/2 grew E coli and urine culture grew E coli with similar sensitivities. She was on meropenem all through her stay and has been transitioned to ciprofloxacin based on sensitivity pattern. She has had a CT of the abdomen and pelvis, which has not revealed any obstructive uropathy. The CAT scan revealed possible enteritis, but the patient did not have any nausea, vomiting, or diarrhea. Her stool sample was negative for any infectious etiology. She has responded well to IV antibiotics and has been eating and ambulating well. She was counseled to continue antibiotics for another 10 days. Please see a [id number] documentation for the day of discharge on [employer]. Job ID: [id number] MTDD
== END 2019-01-30 10:52 | disposition home or self-care (01) | DRG 872 ==
LOC: ERS 22:59 → T4-A 01-26 01:49
PROVIDERS: ADMIT Hospitalist; ATTEND Hospitalist
DX: A41.51 Sepsis due to Escherichia coli [E. coli] (principal); N39.0 Urinary tract infection, site not specified; E11.9 Type 2 diabetes mellitus without complications; J44.9 Chronic obstructive pulmonary disease, unspecified; I73.9 Peripheral vascular disease, unspecified; K21.9 Gastro-esophageal reflux disease without esophagitis; Z90.710 Acquired absence of both cervix and uterus; Z79.84 Long term (current) use of oral hypoglycemic drugs; Z79.82 Long term (current) use of aspirin; Z88.0 Allergy status to penicillin; Z88.2 Allergy status to sulfonamides
CPT/HCPCS: 36415; 36416; 71046; 74177; 80048; 80053; 81003; 81015; 83605; 85025; 87040; 87045; 87046; 87077; 87086; 87149; 87186; 87324; 87449; 87899; 96361; 96365; J0744; J1825; J2185; J2405; Q9966

== ENCOUNTER 2020-08-17 10:42 | Emergency (ER) | payer SELFPAY ==
--- NOTE | 2020-08-17 11:57 | RAD ---
RIGHT WRIST 3 VIEWS: Date: 08/17/2020 HISTORY: Pain following a trip and fall and injury at home. FINDINGS/IMPRESSION: No fracture, dislocation, or other significant acute osseous abnormality. POS: RRE
--- NOTE | 2020-08-17 11:59 | RAD ---
SACRUM AND COCCYX 3 VIEWS: Date: 08/17/2020 HISTORY: Pain following injury from a trip and fall at home. FINDINGS: Bilateral vascular stents overlie the sacroiliac regions. The SI joints appear unremarkable. No evide nce for an overt acute sacral or coccygeal fracture. No evidence for overt fracture or dislocation. If the patient has persistent or worsening sacrococcygeal pain, consider follow-up nonemergent MRI fo r further assessment, which may well demonstrate subtle fractures or stress-related injury not eviden t on plain film or even CT. POS: RRE
[2020-08-17] MEDS ORDERED: traMADol HCl 50 MG TAB ONE (14:01)
--- NOTE | 2020-08-17 14:12 | CT ---
CT Brain WO Con: 08/17/2020 2:00 PM CLINICAL HISTORY: History of fall on Plavix with headache. IMAGING TECHNIQUE: Multiple CT images were obtained of the brain without IV contrast. COMPARISON: Prior CT the brain without contrast dated January 12, 2015 FINDINGS: BRAIN: Evidence of acute infarct: None. Evidence of chronic ischemic change:None. Evidence of intracranial hemorrhage: None. Evidence of brain volume loss:None. Evidence of midline shift: Third ventricle and septum pellucidum are midline. Ventricles: Normal. No hydrocephalus. SKULL: Intact. VISUALIZED PARANASAL SINUSES: Clear. MASTOID AIR CELLS: Clear. EXTRACRANIAL SOFT TISSUES: Normal. IMPRESSION: No acute intracranial abnormality.
--- NOTE | 2020-08-17 14:32 | RAD ---
THREE VIEWS OF THE RIGHT HAND: 08/17/20 HISTORY: Thumb pain. FINDINGS: Three views of the right hand shows no evidence of acute fracture or dislocation. No soft tissue swel ling is seen. No degenerative changes are seen. IMPRESSION: Unremarkable exam. POS: DARIO
--- NOTE | 2020-08-17 14:33 | RAD ---
TWO VIEWS OF THE RIGHT HIP: 08/17/20 HISTORY: Fall with pain. FINDINGS: Two views of the right hip shows no evidence of acute fracture or dislocation. No degenerative change s are seen in the right hip. The visualized bones in the pelvis are unremarkable. a stent is seen in the right common iliac artery. IMPRESSION: No evidence of acute osseous abnormality. POS: EAA
== END 2020-08-17 15:04 | disposition home or self-care (01) ==
LOC: ERS 10:42
DX: S30.0XXA Contusion of lower back and pelvis, initial encounter (principal); M25.531 Pain in right wrist; M79.644 Pain in right finger(s); M25.551 Pain in right hip; E11.9 Type 2 diabetes mellitus without complications; J44.9 Chronic obstructive pulmonary disease, unspecified; Z87.891 Personal history of nicotine dependence; W01.0XXA Fall on same level from slipping, tripping and stumbling without subsequent striking against object, initial encounter
CPT/HCPCS: 29125; 70450; 72220

== ENCOUNTER 2021-07-15 16:04 | Inpatient (IN) | payer SELFPAY ==
[2021-07-15] MEDS ORDERED: Dextrose 5% in Water 1,000 ML IV PRN (19:05)
[2021-07-15] MEDS ORDERED: Ondansetron ODT 4 MG TAB PO PRN (19:07)
[2021-07-15] MEDS ORDERED: Senokot S 8.6-50 MG TAB PO PRN (19:07)
[2021-07-15 20:02] LABS: #Lymphocytes 0.4 thou/uL (1.20-3.40); #Neutrophils 3.5 thou/uL (1.40-6.50); %Eosinophils 0.2 % (0.0-10.0); %Lymphocytes 10.7 % (21.0-51.0); %Monocytes 0.4 % (0.0-10.0); %Neutrophils 88.7 % (42.0-75.0); Hemoglobin 15.3 g/dL (12.0-16.0); Mean Corpuscular HGB CONC 34.7 g/dL (32.0-36.0); Platelet Count 133 thou/uL (130-400); RBC Distribution Width 11.4 % (11.5-14.5); Red Blood Cell (RBC) Count 4.66 mill/uL (4.20-5.40)
[2021-07-15 20:17] LABS: INR-International Normal Ratio 0.9; Prothrombin Time 12.7 sec (12.0-14.7)
[2021-07-15 20:19] LABS: D-Dimer Test 1.06 *mcg/mL (0.27-0.43)
[2021-07-15] MEDS ORDERED: guaiFENesin 200 MG TAB PO PRN (20:19)
[2021-07-15 20:25] LABS: ALT (SGPT) 213 U/L (8-55); AST (SGOT) 217 U/L (5-34); Albumin 3.5 g/dL (3.4-4.8); Alkaline Phosphatase 171 U/L (40-110); Anion Gap 21 mmol/L (10-20); BUN (Urea Nitrogen) 7 mg/dL (9.8-20.1); Bilirubin, Total 0.4 mg/dL (0.2-1.2); CRP (Inflammatory) 6.46 mg/dL (= or < 0.5); Calc. Creatinine Clearance 0 mL/min (70-130); Calcium 8.7 mg/dL (7.8-10.44); Carbon Dioxide 16 mmol/L (23-31); Chloride 97 mmol/L (98-107); Globulin 3.3 g/dL (2.4-3.5); Glucose 282 mg/dL (80-115); Protein, Total 6.8 g/dL (5.8-8.1); Sodium 130 mmol/L (136-145)
[2021-07-15] MEDS: Sodium Chloride 0.9% 1,000 ML IV SCH (20:48)
[2021-07-15] MEDS: HumaLOG 300 UNITS/3 ML VIAL SC PRN (20:50)
[2021-07-15] MEDS ORDERED: REMDESIVIR 200 MG in Sodium Chloride 0.9% 250 ML 210 ML IV SCH (21:00)
[2021-07-15 21:38] LABS: Hemoglobin A1c 11.7 % (4.0-6.0)
[2021-07-15] MEDS: Famotidine 20 MG TAB PO SCH (21:59)
[2021-07-15] MEDS ORDERED: DEXAMETHASONE IVPB SCH (22:30)
[2021-07-15] MEDS ORDERED: Dexamethasone 6 MG in Sodium Chloride 0.9% 50 ML IVPB SCH ×2 (22:30→22:45)
[2021-07-15] MEDS ORDERED: SODIUM CHLORIDE 0.9% IVPB SCH (22:30)
[2021-07-16] MEDS ORDERED: Sodium Chloride 0.9% 1,000 ML IV SCH ×2 (00:30)
[2021-07-16] MEDS ORDERED: Lantus 1000 UNITS/10 ML VIAL SC SCH ×3 (00:30→21:00)
[2021-07-16] MEDS: HumaLOG 300 UNITS/3 ML VIAL SC PRN ×4 (05:37→20:00)
[2021-07-16 05:47] LABS: #Lymphocytes 0.5 thou/uL (1.20-3.40); #Neutrophils 3.4 thou/uL (1.40-6.50); %Basophils 0.5 % (0.0-1.0); %Eosinophils 0.2 % (0.0-10.0); %Lymphocytes 12.1 % (21.0-51.0); %Monocytes 0.9 % (0.0-10.0); %Neutrophils 86.3 % (42.0-75.0); Hemoglobin 14.1 g/dL (12.0-16.0); Mean Corpuscular Hemoglobin 32.6 pg (27.0-31.0); Mean Corpuscular Volume 96.1 fL (78.0-98.0); Mean Platelet Volume 6.7 fL (7.4-10.4); Platelet Count 145 thou/uL (130-400); RBC Distribution Width 11.5 % (11.5-14.5); Red Blood Cell (RBC) Count 4.32 mill/uL (4.20-5.40)
[2021-07-16 06:12] LABS: Anion Gap 18 mmol/L (10-20); BUN (Urea Nitrogen) 10 mg/dL (9.8-20.1); Calc. Creatinine Clearance 74 mL/min (70-130); Carbon Dioxide 17 mmol/L (23-31); Chloride 101 mmol/L (98-107); Cholesterol 91 mg/dl (< 200 Desired); Glucose 291 mg/dL (80-115); HDL Cholesterol 21 mg/dL (>60 Neg Risk); Magnesium 1.8 mg/dL (1.6-2.6); Potassium 4.4 mmol/L (3.5-5.1); Sodium 132 mmol/L (136-145); Triglycerides 91 mg/dL (Less than 150)
[2021-07-16 06:13] LABS: Cardiac Risk 4.3 (Less than 4.5); LDL Cholesterol, Calculated 52 mg/dL
[2021-07-16 06:14] LABS: Bacteria/HPF None Seen HPF (None Seen); Bilirubin Negative (Negative); Blood, Urine Negative (Negative); Clarity Clear (Clear); Glucose, Urine (Dipstick) Greater than 1000 mg/dL (Negative); Ketone, Urine Greater than 150 mg/dL (Negative); Leukocyte Negative Leu/uL (Negative); Nitrite Negative (Negative); Protein, Urine (Dipstick) 20 mg/dL (Neg-Trace); RBC/HPF 0-3 HPF (0-3); Specific Gravity, Urine 1.019 (1.002-1.036); Squamous Epithelial None Seen HPF (0-3); Urobilinogen Normal mg/dL (Less than 2); WBC/HPF 0-3 HPF (0-3)
[2021-07-16 06:21] LABS: Urine Culture Reflex No No
[2021-07-16] MEDS ORDERED: Dexamethasone 6 MG in Sodium Chloride 0.9% 50 ML IVPB SCH (09:00)
[2021-07-16] MEDS: Enoxaparin Sodium 40 MG/0.4 ML SYRINGE SC SCH (09:38)
[2021-07-16] MEDS: Amlodipine 5 MG TAB PO SCH (09:38)
[2021-07-16] MEDS: Cholecalciferol (Vitamin D3) 400 UNITS TAB PO SCH (09:38)
[2021-07-16] MEDS: Famotidine 20 MG TAB PO SCH ×2 (09:38→20:11)
[2021-07-16] MEDS: Ascorbic Acid 500 mg Chewable Tablet PO SCH (09:38)
[2021-07-16] MEDS: Zinc Sulfate 220 MG CAP PO SCH (09:38)
[2021-07-16] MEDS: Sodium Chloride 0.9% 1,000 ML IV SCH (09:39)
[2021-07-16] MEDS: Dexamethasone 4 mg/ml Vial SLOW IVP SCH (09:39)
[2021-07-16] MEDS: Lantus 1000 UNITS/10 ML VIAL SC SCH (09:40)
[2021-07-16] MEDS: Ondansetron PF 4 MG/2 ML Vial IVP PRN (10:13)
[2021-07-16] MEDS: Benzonatate 100 MG CAP PO PRN (10:13)
[2021-07-16] MEDS ORDERED: Iopamidol 370 76% 100 ML VIAL ONE (10:19)
[2021-07-16] MEDS ORDERED: Promethazine HCl 25 MG in Sodium Chloride 0.9% 50 ML IVPB PRN (14:04)
[2021-07-16] MEDS ORDERED: Amlodipine 5 MG TAB PO SCH (14:15)
[2021-07-16] MEDS: Acetaminophen 325 MG TAB PO PRN ×2 (15:07)
[2021-07-16] MEDS: guaiFENesin ER 600 MG TAB PO SCH (20:12)
[2021-07-16] MEDS: REMDESIVIR 100 MG in Sodium Chloride 0.9% 250 ML 230 ML IV SCH (20:55)
[2021-07-17] MEDS: Acetaminophen 325 MG TAB PO PRN (02:16)
[2021-07-17] MEDS: Acetaminophen 650 MG Suppository PR PRN (02:16)
[2021-07-17] MEDS: Benzonatate 100 MG CAP PO PRN (02:17)
[2021-07-17] MEDS: Enoxaparin Sodium 40 MG/0.4 ML SYRINGE SC SCH ×3 (09:20→21:24)
[2021-07-17] MEDS: Zinc Sulfate 220 MG CAP PO SCH (09:21)
[2021-07-17] MEDS: Famotidine 20 MG TAB PO SCH ×2 (09:21→21:25)
[2021-07-17] MEDS: Dexamethasone 4 mg/ml Vial SLOW IVP SCH (09:21)
[2021-07-17] MEDS: Ascorbic Acid 500 mg Chewable Tablet PO SCH (09:21)
[2021-07-17] MEDS: Cholecalciferol (Vitamin D3) 400 UNITS TAB PO SCH (09:21)
[2021-07-17] MEDS: Amlodipine 5 MG TAB PO SCH (09:21)
[2021-07-17] MEDS: guaiFENesin ER 600 MG TAB PO SCH ×2 (09:21→21:26)
[2021-07-17] MEDS: Lantus 1000 UNITS/10 ML VIAL SC SCH ×2 (09:48→21:29)
[2021-07-17 11:00] LABS: ALT (SGPT) 116 U/L (8-55); AST (SGOT) 107 U/L (5-34); Albumin 3.2 g/dL (3.4-4.8); Alkaline Phosphatase 283 U/L (40-110); Anion Gap 12 mmol/L (10-20); BUN (Urea Nitrogen) 9 mg/dL (9.8-20.1); Bilirubin, Total 0.5 mg/dL (0.2-1.2); Calc. Creatinine Clearance 81 mL/min (70-130); Calcium 8.7 mg/dL (7.8-10.44); Carbon Dioxide 25 mmol/L (23-31); Chloride 100 mmol/L (98-107); Glucose 207 mg/dL (80-115); Potassium 3.3 mmol/L (3.5-5.1); Protein, Total 6.2 g/dL (5.8-8.1); Sodium 134 mmol/L (136-145)
[2021-07-17] MEDS: Aspirin 81 mg Enteric Coated Tablet PO SCH (15:34)
[2021-07-17] MEDS: HumaLOG 300 UNITS/3 ML VIAL SC PRN ×2 (17:44→21:28)
[2021-07-17] MEDS: REMDESIVIR 100 MG in Sodium Chloride 0.9% 250 ML 230 ML IV SCH (21:27)
[2021-07-18] MEDS: Acetaminophen 325 MG TAB PO PRN ×2 (01:23→10:52)
[2021-07-18 04:00] LABS: #Lymphocytes 0.6 thou/uL (1.20-3.40); #Monocytes 0.4 thou/uL (0.11-0.59); #Neutrophils 3.3 thou/uL (1.40-6.50); %Eosinophils 0.2 % (0.0-10.0); %Lymphocytes 13.6 % (21.0-51.0); %Monocytes 9.6 % (0.0-10.0); %Neutrophils 76.6 % (42.0-75.0); Hemoglobin 13.7 g/dL (12.0-16.0); Mean Corpuscular HGB CONC 34.3 g/dL (32.0-36.0); Mean Corpuscular Hemoglobin 32.4 pg (27.0-31.0); Mean Corpuscular Volume 94.5 fL (78.0-98.0); Mean Platelet Volume 6.5 fL (7.4-10.4); Platelet Count 195 thou/uL (130-400); RBC Distribution Width 11.5 % (11.5-14.5); Red Blood Cell (RBC) Count 4.24 mill/uL (4.20-5.40); White Blood Cell (WBC) Count 4.4 thou/uL (4.8-10.8)
[2021-07-18 04:17] LABS: Anion Gap 13 mmol/L (10-20); BUN (Urea Nitrogen) 7 mg/dL (9.8-20.1); CRP (Inflammatory) 5.14 mg/dL (= or < 0.5); Calc. Creatinine Clearance 98 mL/min (70-130); Calcium 7.9 mg/dL (7.8-10.44); Carbon Dioxide 25 mmol/L (23-31); Chloride 101 mmol/L (98-107); Glucose 193 mg/dL (80-115); Potassium 3.7 mmol/L (3.5-5.1); Sodium 135 mmol/L (136-145)
[2021-07-18] MEDS: HumaLOG 300 UNITS/3 ML VIAL SC PRN ×2 (06:30→21:29)
[2021-07-18] MEDS: Zinc Sulfate 220 MG CAP PO SCH (10:27)
[2021-07-18] MEDS: Cholecalciferol (Vitamin D3) 400 UNITS TAB PO SCH (10:27)
[2021-07-18] MEDS: Aspirin 81 mg Enteric Coated Tablet PO SCH (10:27)
[2021-07-18] MEDS: Dexamethasone 4 mg/ml Vial SLOW IVP SCH (10:28)
[2021-07-18] MEDS: Ascorbic Acid 500 mg Chewable Tablet PO SCH (10:28)
[2021-07-18] MEDS: Famotidine 20 MG TAB PO SCH ×2 (10:29→20:07)
[2021-07-18] MEDS: Amlodipine 5 MG TAB PO SCH (10:29)
[2021-07-18] MEDS: Enoxaparin Sodium 40 MG/0.4 ML SYRINGE SC SCH ×2 (10:30→20:06)
[2021-07-18] MEDS: Lantus 1000 UNITS/10 ML VIAL SC SCH ×2 (10:31→21:29)
[2021-07-18] MEDS: Ondansetron PF 4 MG/2 ML Vial IVP PRN (10:52)
[2021-07-18] MEDS ORDERED: Loperamide HCl 2 MG CAP PO PRN (10:55)
[2021-07-18] MEDS: REMDESIVIR 100 MG in Sodium Chloride 0.9% 250 ML 230 ML IV SCH (20:07)
[2021-07-18] MEDS: Lorazepam 0.5 MG TAB PO PRN (21:35)
[2021-07-19] MEDS: Lorazepam 0.5 MG TAB PO PRN (02:14)
[2021-07-19] MEDS: Acetaminophen 325 MG TAB PO PRN (02:48)
[2021-07-19] MEDS: Famotidine 20 MG TAB PO SCH ×2 (09:01→20:31)
[2021-07-19] MEDS: Zinc Sulfate 220 MG CAP PO SCH (09:01)
[2021-07-19] MEDS: Cholecalciferol (Vitamin D3) 400 UNITS TAB PO SCH (09:01)
[2021-07-19] MEDS: Ascorbic Acid 500 mg Chewable Tablet PO SCH (09:01)
[2021-07-19] MEDS: Aspirin 81 mg Enteric Coated Tablet PO SCH (09:01)
[2021-07-19] MEDS: Dexamethasone 4 mg/ml Vial SLOW IVP SCH (09:01)
[2021-07-19] MEDS: Enoxaparin Sodium 40 MG/0.4 ML SYRINGE SC SCH ×2 (09:01→20:33)
[2021-07-19] MEDS: Amlodipine 5 MG TAB PO SCH (09:01)
[2021-07-19] MEDS: Lantus 1000 UNITS/10 ML VIAL SC SCH ×2 (09:04→20:34)
[2021-07-19] MEDS: HumaLOG 300 UNITS/3 ML VIAL SC PRN ×2 (17:14→20:35)
[2021-07-19] MEDS: Acetaminophen 650 MG Suppository PR PRN (17:15)
[2021-07-19] MEDS: REMDESIVIR 100 MG in Sodium Chloride 0.9% 250 ML 230 ML IV SCH (21:52)
[2021-07-20] MEDS: Acetaminophen 325 MG TAB PO PRN ×2 (04:00→17:52)
[2021-07-20] MEDS: Lorazepam 0.5 MG TAB PO PRN (04:07)
[2021-07-20 04:21] LABS: ALT (SGPT) 50 U/L (8-55); AST (SGOT) 30 U/L (5-34); Albumin 2.9 g/dL (3.4-4.8); Alkaline Phosphatase 277 U/L (40-110); Bilirubin, Direct 0.3 mg/dL (0.1-0.3); Bilirubin, Total 0.5 mg/dL (0.2-1.2); Protein, Total 5.8 g/dL (5.8-8.1)
[2021-07-20] MEDS: HumaLOG 300 UNITS/3 ML VIAL SC PRN ×3 (06:25→20:32)
[2021-07-20] MEDS: Dexamethasone 4 mg/ml Vial SLOW IVP SCH (07:46)
[2021-07-20] MEDS: Ascorbic Acid 500 mg Chewable Tablet PO SCH (07:47)
[2021-07-20] MEDS: Famotidine 20 MG TAB PO SCH ×2 (07:47→20:28)
[2021-07-20] MEDS: Aspirin 81 mg Enteric Coated Tablet PO SCH (07:47)
[2021-07-20] MEDS: Zinc Sulfate 220 MG CAP PO SCH (07:47)
[2021-07-20] MEDS: Amlodipine 5 MG TAB PO SCH (07:47)
[2021-07-20] MEDS: Cholecalciferol (Vitamin D3) 400 UNITS TAB PO SCH (07:48)
[2021-07-20] MEDS: Enoxaparin Sodium 40 MG/0.4 ML SYRINGE SC SCH ×2 (07:48→20:28)
[2021-07-20] MEDS: Lantus 1000 UNITS/10 ML VIAL SC SCH ×2 (07:54→20:31)
[2021-07-21] MEDS: Acetaminophen 325 MG TAB PO PRN ×4 (00:07→15:07)
[2021-07-21] MEDS: Lorazepam 0.5 MG TAB PO PRN ×2 (00:07→22:16)
[2021-07-21 05:02] LABS: #Lymphocytes 0.6 thou/uL (1.20-3.40); #Monocytes 0.6 thou/uL (0.11-0.59); #Neutrophils 7.9 thou/uL (1.40-6.50); %Basophils 0.2 % (0.0-1.0); %Eosinophils 0.2 % (0.0-10.0); %Lymphocytes 6.4 % (21.0-51.0); %Neutrophils 86.2 % (42.0-75.0); Hemoglobin 13.6 g/dL (12.0-16.0); Mean Corpuscular HGB CONC 34.2 g/dL (32.0-36.0); Mean Corpuscular Hemoglobin 32.6 pg (27.0-31.0); Mean Corpuscular Volume 95.3 fL (78.0-98.0); Mean Platelet Volume 6.6 fL (7.4-10.4); Platelet Count 273 thou/uL (130-400); RBC Distribution Width 11.4 % (11.5-14.5); Red Blood Cell (RBC) Count 4.16 mill/uL (4.20-5.40); White Blood Cell (WBC) Count 9.2 thou/uL (4.8-10.8)
[2021-07-21 05:22] LABS: Anion Gap 15 mmol/L (10-20); BUN (Urea Nitrogen) 8 mg/dL (9.8-20.1); Calc. Creatinine Clearance 95 mL/min (70-130); Calcium 8.5 mg/dL (7.8-10.44); Carbon Dioxide 26 mmol/L (23-31); Chloride 95 mmol/L (98-107); Glucose 214 mg/dL (80-115); Potassium 3.2 mmol/L (3.5-5.1); Sodium 133 mmol/L (136-145)
[2021-07-21] MEDS: HumaLOG 300 UNITS/3 ML VIAL SC PRN ×3 (05:55→20:50)
[2021-07-21] MEDS: Ondansetron PF 4 MG/2 ML Vial IVP PRN (06:02)
[2021-07-21] MEDS: Ascorbic Acid 500 mg Chewable Tablet PO SCH (07:36)
[2021-07-21] MEDS: Amlodipine 5 MG TAB PO SCH (07:36)
[2021-07-21] MEDS: Cholecalciferol (Vitamin D3) 400 UNITS TAB PO SCH (07:36)
[2021-07-21] MEDS: Famotidine 20 MG TAB PO SCH ×2 (07:36→20:49)
[2021-07-21] MEDS: Zinc Sulfate 220 MG CAP PO SCH (07:36)
[2021-07-21] MEDS: Aspirin 81 mg Enteric Coated Tablet PO SCH (07:36)
[2021-07-21] MEDS: Enoxaparin Sodium 40 MG/0.4 ML SYRINGE SC SCH ×2 (07:37→20:49)
[2021-07-21] MEDS: Dexamethasone 4 mg/ml Vial SLOW IVP SCH (07:37)
[2021-07-21] MEDS: Lantus 1000 UNITS/10 ML VIAL SC SCH ×2 (07:37→20:49)
[2021-07-21] MEDS ORDERED: Electrolyte Replacement Protocol 1 EACH FS SCH (08:45)
[2021-07-21] MEDS ORDERED: Magnesium 2 GM/50 ML 2 GM in Premix Bag 1 BAG IVPB SCH (11:00)
[2021-07-21] MEDS ORDERED: Potassium Chloride 20 MEQ TAB PO SCH (11:00)
[2021-07-22 03:55] LABS: #Lymphocytes 0.4 thou/uL (1.20-3.40); #Monocytes 0.6 thou/uL (0.11-0.59); #Neutrophils 7.6 thou/uL (1.40-6.50); %Basophils 0.1 % (0.0-1.0); %Eosinophils 0.2 % (0.0-10.0); %Monocytes 6.9 % (0.0-10.0); %Neutrophils 87.8 % (42.0-75.0); Hemoglobin 13.9 g/dL (12.0-16.0); Mean Corpuscular HGB CONC 33.1 g/dL (32.0-36.0); Mean Corpuscular Hemoglobin 31.8 pg (27.0-31.0); Mean Platelet Volume 6.3 fL (7.4-10.4); Platelet Count 317 thou/uL (130-400); RBC Distribution Width 11.6 % (11.5-14.5); Red Blood Cell (RBC) Count 4.37 mill/uL (4.20-5.40); White Blood Cell (WBC) Count 8.7 thou/uL (4.8-10.8)
[2021-07-22 04:28] LABS: ALT (SGPT) 49 U/L (8-55); AST (SGOT) 36 U/L (5-34); Albumin 2.9 g/dL (3.4-4.8); Alkaline Phosphatase 368 U/L (40-110); Anion Gap 14 mmol/L (10-20); BUN (Urea Nitrogen) 9 mg/dL (9.8-20.1); Bilirubin, Total 0.7 mg/dL (0.2-1.2); CRP (Inflammatory) 12.73 mg/dL (= or < 0.5); Calc. Creatinine Clearance 98 mL/min (70-130); Calcium 8.6 mg/dL (7.8-10.44); Carbon Dioxide 29 mmol/L (23-31); Chloride 95 mmol/L (98-107); Globulin 3.3 g/dL (2.4-3.5); Glucose 159 mg/dL (80-115); Potassium 3.6 mmol/L (3.5-5.1); Protein, Total 6.2 g/dL (5.8-8.1); Sodium 134 mmol/L (136-145)
[2021-07-22] MEDS: Lorazepam 0.5 MG TAB PO PRN (04:44)
[2021-07-22] MEDS: Lantus 1000 UNITS/10 ML VIAL SC SCH ×2 (05:43→20:25)
[2021-07-22] MEDS: Lorazepam 2 MG/ML VIAL SLOW IVP PRN ×2 (07:23→20:24)
[2021-07-22] MEDS: Amlodipine 5 MG TAB PO SCH (08:04)
[2021-07-22] MEDS: Ascorbic Acid 500 mg Chewable Tablet PO SCH (08:05)
[2021-07-22] MEDS: Famotidine 20 MG TAB PO SCH ×2 (08:05→20:25)
[2021-07-22] MEDS: Aspirin 81 mg Enteric Coated Tablet PO SCH (08:05)
[2021-07-22] MEDS: Cholecalciferol (Vitamin D3) 400 UNITS TAB PO SCH (08:05)
[2021-07-22] MEDS: Zinc Sulfate 220 MG CAP PO SCH (08:05)
[2021-07-22] MEDS: BARICITINIB 2 MG TAB PO SCH (08:29)
[2021-07-22] MEDS: Dexamethasone 4 mg/ml Vial SLOW IVP SCH (09:08)
[2021-07-22] MEDS: Enoxaparin Sodium 40 MG/0.4 ML SYRINGE SC SCH ×2 (09:08→20:24)
[2021-07-22] MEDS: HumaLOG 300 UNITS/3 ML VIAL SC PRN (20:25)
[2021-07-23] MEDS: Lorazepam 2 MG/ML VIAL SLOW IVP PRN (03:53)
[2021-07-23 06:56] LABS: Hemoglobin 13.7 g/dL (12.0-16.0); Mean Corpuscular HGB CONC 32.5 g/dL (32.0-36.0); Mean Corpuscular Hemoglobin 31.7 pg (27.0-31.0); Mean Corpuscular Volume 97.4 fL (78.0-98.0); Mean Platelet Volume 7.1 fL (7.4-10.4); Platelet Count 277 thou/uL (130-400); RBC Distribution Width 11.6 % (11.5-14.5); Red Blood Cell (RBC) Count 4.34 mill/uL (4.20-5.40); White Blood Cell (WBC) Count 10.1 thou/uL (4.8-10.8)
[2021-07-23 07:38] LABS: Band 4 % (5-11); Lymphocytes 5 % (21-51); MDiff Complete? YES; Monocytes 7 % (0-10); Neutrophil 82 % (42-75); Platelet Morphology Comment Appears Adequate; RBC Morphology Normal; Reactive Lymphocytes 2 % (0-10)
[2021-07-23] MEDS: Aspirin 81 mg Enteric Coated Tablet PO SCH (08:49)
[2021-07-23] MEDS: Amlodipine 5 MG TAB PO SCH (08:49)
[2021-07-23] MEDS: BARICITINIB 2 MG TAB PO SCH (08:49)
[2021-07-23] MEDS: Cholecalciferol (Vitamin D3) 400 UNITS TAB PO SCH (08:49)
[2021-07-23] MEDS: Ascorbic Acid 500 mg Chewable Tablet PO SCH (08:49)
[2021-07-23] MEDS: Famotidine 20 MG TAB PO SCH ×2 (08:50→20:13)
[2021-07-23] MEDS: Zinc Sulfate 220 MG CAP PO SCH (08:50)
[2021-07-23] MEDS: Dexamethasone 4 mg/ml Vial SLOW IVP SCH (08:51)
[2021-07-23] MEDS: Enoxaparin Sodium 40 MG/0.4 ML SYRINGE SC SCH ×2 (08:51→20:13)
[2021-07-23] MEDS: Acetaminophen 325 MG TAB PO PRN (09:24)
[2021-07-23 10:27] LABS: Albumin 2.9 g/dL (3.4-4.8)
[2021-07-23 10:28] LABS: Chloride 97 mmol/L (98-107); Sodium 135 mmol/L (136-145)
[2021-07-23 10:29] LABS: Calcium 8.8 mg/dL (7.8-10.44)
[2021-07-23 10:30] LABS: Glucose 145 mg/dL (80-115); Protein, Total 6.3 g/dL (5.8-8.1)
[2021-07-23 10:31] LABS: Anion Gap 16 mmol/L (10-20); Carbon Dioxide 26 mmol/L (23-31)
[2021-07-23 10:32] LABS: Bilirubin, Total 0.7 mg/dL (0.2-1.2)
[2021-07-23 10:33] LABS: Alkaline Phosphatase 376 U/L (40-110); Calc. Creatinine Clearance 101 mL/min (70-130)
[2021-07-23 10:34] LABS: BUN (Urea Nitrogen) 12 mg/dL (9.8-20.1)
[2021-07-23 10:35] LABS: AST (SGOT) 24 U/L (5-34); Bilirubin, Direct 0.4 mg/dL (0.1-0.3)
[2021-07-23] MEDS: Lantus 1000 UNITS/10 ML VIAL SC SCH ×2 (10:35→20:15)
[2021-07-23 10:36] LABS: ALT (SGPT) 33 U/L (8-55)
[2021-07-23] MEDS: HumaLOG 300 UNITS/3 ML VIAL SC PRN ×2 (16:35→20:14)
[2021-07-24] MEDS: Lorazepam 2 MG/ML VIAL SLOW IVP PRN ×3 (00:54→06:48)
[2021-07-24 04:47] LABS: Actual Bicarbonate (HCO3a) 25.9 mEq/L (22-28); Base Excess (BEa) 2.8 mEq/L (-2.0 to +3.0); CO2 Tension 35.3 mmHg (35.0-45.0); Calcium, Ionized (arterial) 1.17 mmol/L (1.12-1.30); Carboxyhemoglobin (COHb) 1.3 gm% (0.0-3.0); Hemoglobin (Hb) 14.7 g/dL (12.0-16.0); Potassium - ABG Lab 4.21 mmol/L (3.70-5.30); pH, Arterial 7.48 (7.35-7.45)
[2021-07-24 04:49] LABS: O2 Tension (PaO2), arterial 50.2 mmHg (> 80.0)
[2021-07-24 04:50] LABS: ALV-art Gradient 618.675 mmHg (0-20); Puncture Site RRA
[2021-07-24 05:20] LABS: Anion Gap 19 mmol/L (10-20); BUN (Urea Nitrogen) 13 mg/dL (9.8-20.1); CRP (Inflammatory) 16.69 mg/dL (= or < 0.5); Calc. Creatinine Clearance 88 mL/min (70-130); Calcium 9.2 mg/dL (7.8-10.44); Carbon Dioxide 27 mmol/L (23-31); Chloride 95 mmol/L (98-107); Glucose 152 mg/dL (80-115); Potassium 4.8 mmol/L (3.5-5.1); Sodium 136 mmol/L (136-145)
[2021-07-24 05:22] LABS: Hemoglobin 14.6 g/dL (12.0-16.0); Lymphocytes 6 % (21-51); MDiff Complete? YES; Mean Corpuscular HGB CONC 32.2 g/dL (32.0-36.0); Mean Corpuscular Hemoglobin 31.3 pg (27.0-31.0); Mean Corpuscular Volume 97.3 fL (78.0-98.0); Mean Platelet Volume 6.9 fL (7.4-10.4); Monocytes 8 % (0-10); Neutrophil 86 % (42-75); Platelet Count 415 thou/uL (130-400); Platelet Morphology Comment Appears Increased; RBC Distribution Width 11.6 % (11.5-14.5); Red Blood Cell (RBC) Count 4.67 mill/uL (4.20-5.40); White Blood Cell (WBC) Count 13.5 thou/uL (4.8-10.8)
[2021-07-24] MEDS ORDERED: EPINEPHrine 1 MG/10 ML Abboject SYRINGE ONE (06:07)
[2021-07-24 06:34] LABS: Actual Bicarbonate (HCO3a) 17.4 mEq/L (22-28); Base Excess (BEa) -8.7 mEq/L (-2.0 to +3.0); CO2 Tension 38.4 mmHg (35.0-45.0); Calcium, Ionized (arterial) 1.14 mmol/L (1.12-1.30); Carboxyhemoglobin (COHb) 1.2 gm% (0.0-3.0); Hemoglobin (Hb) 14.8 g/dL (12.0-16.0); O2 Tension (PaO2), arterial 43.5 mmHg (> 80.0); Potassium - ABG Lab 4.14 mmol/L (3.70-5.30); pH, Arterial 7.28 (7.35-7.45)
[2021-07-24 06:35] LABS: Puncture Site RRA
[2021-07-24] MEDS ORDERED: Norepinephrine 8 MG/0.9% NS 250 ML IVPB PRN (06:37)
[2021-07-24] MEDS ORDERED: Fentanyl CADD 100 ML ONE (06:42)
[2021-07-24] MEDS ORDERED: Morphine 2 MG/ML VIAL SLOW IVP PRN (06:45)
[2021-07-24] MEDS ORDERED: Propofol BOLUS 1,000 MG/100 ML VIAL IV PRN (06:45)
[2021-07-24] MEDS ORDERED: Fentanyl BOLUS 250 ML IVPB PRN (06:45)
[2021-07-24] MEDS ORDERED: Ventilator Sedation Protocol 1 EACH FS SCH (06:45)
[2021-07-24] MEDS ORDERED: Sterile Water 10 ML ONE (06:45)
[2021-07-24] MEDS: Vecuronium 10 MG VIAL IV PRN (06:48)
[2021-07-24] MEDS: Fentanyl CADD 100 ML IV SCH (06:48)
[2021-07-24] MEDS ORDERED: Electrolyte Replacement Protocol 1 EACH FS ONE (07:48)
[2021-07-24] MEDS: BARICITINIB 2 MG TAB PO SCH (09:45)
[2021-07-24] MEDS: Cholecalciferol (Vitamin D3) 400 UNITS TAB PO SCH (09:45)
[2021-07-24] MEDS: Zinc Sulfate 220 MG CAP PO SCH (09:45)
[2021-07-24] MEDS: Aspirin 81 mg Enteric Coated Tablet PO SCH (09:45)
[2021-07-24] MEDS: Amlodipine 5 MG TAB PO SCH (09:45)
[2021-07-24] MEDS: Famotidine 20 MG TAB PO SCH ×2 (09:45→21:04)
[2021-07-24] MEDS: Ascorbic Acid 500 mg Chewable Tablet PO SCH (09:45)
[2021-07-24] MEDS: Enoxaparin Sodium 40 MG/0.4 ML SYRINGE SC SCH ×2 (09:46→21:05)
[2021-07-24] MEDS: methylPREDNISolone Sod Succ/PF 60 MG in Sodium Chloride 0.9% 250 ML 250 ML IVPB SCH (09:46)
[2021-07-24] MEDS: Lantus 1000 UNITS/10 ML VIAL SC SCH ×2 (09:47→21:04)
[2021-07-24] MEDS: Propofol 1,000 MG/100 ML VIAL IV PRN (12:32)
[2021-07-24] MEDS ORDERED: Sodium Chloride 0.9% 1,000 ML IV SCH (15:00)
[2021-07-24] MEDS: HumaLOG 300 UNITS/3 ML VIAL SC PRN ×2 (17:07→21:17)
[2021-07-25] MEDS ORDERED: Fentanyl CADD 100 ML ONE ×2 (02:49→22:17)
[2021-07-25] MEDS: Fentanyl CADD 100 ML IV SCH ×2 (03:04→22:32)
[2021-07-25 05:08] LABS: #Lymphocytes 0.6 thou/uL (1.20-3.40); #Monocytes 0.3 thou/uL (0.11-0.59); #Neutrophils 7.6 thou/uL (1.40-6.50); %Basophils 0.2 % (0.0-1.0); %Eosinophils 0.3 % (0.0-10.0); %Lymphocytes 7.2 % (21.0-51.0); %Monocytes 3.4 % (0.0-10.0); %Neutrophils 88.9 % (42.0-75.0); Hemoglobin 10.7 g/dL (12.0-16.0); Mean Corpuscular HGB CONC 33.1 g/dL (32.0-36.0); Mean Corpuscular Hemoglobin 32.1 pg (27.0-31.0); Mean Platelet Volume 6.3 fL (7.4-10.4); Platelet Count 265 thou/uL (130-400); RBC Distribution Width 11.3 % (11.5-14.5); Red Blood Cell (RBC) Count 3.35 mill/uL (4.20-5.40); White Blood Cell (WBC) Count 8.6 thou/uL (4.8-10.8)
[2021-07-25 05:34] LABS: Anion Gap 13 mmol/L (10-20); BUN (Urea Nitrogen) 22 mg/dL (9.8-20.1); CRP (Inflammatory) 10.29 mg/dL (= or < 0.5); Calc. Creatinine Clearance 72 mL/min (70-130); Calcium 7.5 mg/dL (7.8-10.44); Carbon Dioxide 21 mmol/L (23-31); Chloride 108 mmol/L (98-107); Glucose 130 mg/dL (80-115); Potassium 3.8 mmol/L (3.5-5.1); Sodium 138 mmol/L (136-145)
[2021-07-25 07:45] LABS: Actual Bicarbonate (HCO3a) 21.9 mEq/L (22-28); Base Excess (BEa) -1.6 mEq/L (-2.0 to +3.0); CO2 Tension 33.2 mmHg (35.0-45.0); Calcium, Ionized (arterial) 1.12 mmol/L (1.12-1.30); Carboxyhemoglobin (COHb) 0.7 gm% (0.0-3.0); Hemoglobin (Hb) 12.1 g/dL (12.0-16.0); O2 Tension (PaO2), arterial 52.9 mmHg (> 80.0); Potassium - ABG Lab 4.25 mmol/L (3.70-5.30); pH, Arterial 7.44 (7.35-7.45)
[2021-07-25 07:46] LABS: Puncture Site RRA
[2021-07-25] MEDS ORDERED: Lantus 1000 UNITS/10 ML VIAL SC SCH (08:15)
[2021-07-25] MEDS: Propofol 1,000 MG/100 ML VIAL IV PRN (08:26)
[2021-07-25] MEDS: Enoxaparin Sodium 40 MG/0.4 ML SYRINGE SC SCH ×2 (08:26→21:02)
[2021-07-25] MEDS: Famotidine 20 MG TAB PO SCH (08:27)
[2021-07-25] MEDS: Zinc Sulfate 220 MG CAP PO SCH (08:27)
[2021-07-25] MEDS: Cholecalciferol (Vitamin D3) 400 UNITS TAB PO SCH (08:27)
[2021-07-25] MEDS: BARICITINIB 2 MG TAB PO SCH (08:28)
[2021-07-25] MEDS: Aspirin 81 mg Enteric Coated Tablet PO SCH (08:28)
[2021-07-25] MEDS: Amlodipine 5 MG TAB PO SCH (08:29)
[2021-07-25] MEDS: Ascorbic Acid 500 mg Chewable Tablet PO SCH (08:29)
[2021-07-25] MEDS: methylPREDNISolone Sod Succ/PF 60 MG in Sodium Chloride 0.9% 250 ML 250 ML IVPB SCH (08:31)
[2021-07-25] MEDS: Lantus 1000 UNITS/10 ML VIAL SC SCH (09:00)
[2021-07-25] MEDS: Vecuronium 10 MG VIAL IV PRN (13:46)
[2021-07-25] MEDS: Lorazepam 2 MG/ML VIAL SLOW IVP PRN (13:47)
[2021-07-25] MEDS: HumaLOG 300 UNITS/3 ML VIAL SC PRN (18:00)
[2021-07-25] MEDS: Famotidine/PF 20 mg/2ml Vial SLOW IVP SCH (21:02)
[2021-07-26 04:44] LABS: #Lymphocytes 0.6 thou/uL (1.20-3.40); #Monocytes 0.5 thou/uL (0.11-0.59); #Neutrophils 10.1 thou/uL (1.40-6.50); %Basophils 0.3 % (0.0-1.0); %Eosinophils 0.3 % (0.0-10.0); %Lymphocytes 5.1 % (21.0-51.0); %Monocytes 4.5 % (0.0-10.0); %Neutrophils 89.8 % (42.0-75.0); Hemoglobin 11.7 g/dL (12.0-16.0); Mean Corpuscular HGB CONC 33.9 g/dL (32.0-36.0); Mean Corpuscular Hemoglobin 32.9 pg (27.0-31.0); Mean Platelet Volume 6.8 fL (7.4-10.4); Platelet Count 241 thou/uL (130-400); RBC Distribution Width 11.4 % (11.5-14.5); Red Blood Cell (RBC) Count 3.56 mill/uL (4.20-5.40); White Blood Cell (WBC) Count 11.2 thou/uL (4.8-10.8)
[2021-07-26 04:55] LABS: ALT (SGPT) 72 U/L (8-55); AST (SGOT) 58 U/L (5-34); Albumin 2.8 g/dL (3.4-4.8); Alkaline Phosphatase 395 U/L (40-110); Bilirubin, Direct 0.6 mg/dL (0.1-0.3); Bilirubin, Total 0.9 mg/dL (0.2-1.2); Protein, Total 5.6 g/dL (5.8-8.1)
[2021-07-26 05:00] LABS: Anion Gap 15 mmol/L (10-20); BUN (Urea Nitrogen) 28 mg/dL (9.8-20.1); CRP (Inflammatory) 4.62 mg/dL (= or < 0.5); Calc. Creatinine Clearance 69 mL/min (70-130); Calcium 8.4 mg/dL (7.8-10.44); Carbon Dioxide 22 mmol/L (23-31); Chloride 107 mmol/L (98-107); Glucose 221 mg/dL (80-115); Potassium 4.5 mmol/L (3.5-5.1); Sodium 139 mmol/L (136-145)
[2021-07-26] MEDS: HumaLOG 300 UNITS/3 ML VIAL SC PRN ×4 (05:12→21:52)
[2021-07-26 07:48] LABS: Actual Bicarbonate (HCO3a) 20.9 mEq/L (22-28); Base Excess (BEa) -2.6 mEq/L (-2.0 to +3.0); CO2 Tension 32.2 mmHg (35.0-45.0); Calcium, Ionized (arterial) 1.18 mmol/L (1.12-1.30); Hemoglobin (Hb) 11.9 g/dL (12.0-16.0); O2 Tension (PaO2), arterial 65.6 mmHg (> 80.0); Potassium - ABG Lab 4.04 mmol/L (3.70-5.30); pH, Arterial 7.43 (7.35-7.45)
[2021-07-26] MEDS: Enoxaparin Sodium 40 MG/0.4 ML SYRINGE SC SCH ×2 (08:04→21:09)
[2021-07-26] MEDS: Zinc Sulfate 220 MG CAP PO SCH (08:05)
[2021-07-26] MEDS: Aspirin 81 mg Enteric Coated Tablet PO SCH (08:05)
[2021-07-26] MEDS: Cholecalciferol (Vitamin D3) 400 UNITS TAB PO SCH (08:05)
[2021-07-26] MEDS: BARICITINIB 2 MG TAB PO SCH (08:05)
[2021-07-26] MEDS: Ascorbic Acid 500 mg Chewable Tablet PO SCH (08:05)
[2021-07-26] MEDS: Lantus 1000 UNITS/10 ML VIAL SC SCH (08:06)
[2021-07-26] MEDS: Amlodipine 5 MG TAB PO SCH (08:06)
[2021-07-26] MEDS: methylPREDNISolone Sod Succ/PF 60 MG in Sodium Chloride 0.9% 250 ML 250 ML IVPB SCH (08:09)
[2021-07-26] MEDS: Propofol 1,000 MG/100 ML VIAL IV PRN ×2 (08:21→18:16)
[2021-07-26 08:33] LABS: Puncture Site RBA
[2021-07-26] MEDS: Metoclopramide HCl 10 MG/2 ML VIAL IVP SCH ×2 (14:22→21:10)
[2021-07-26] MEDS: Lorazepam 2 MG/ML VIAL SLOW IVP PRN (17:09)
[2021-07-26] MEDS ORDERED: Fentanyl CADD 100 ML ONE (17:27)
[2021-07-26] MEDS: Fentanyl CADD 100 ML IV SCH (17:34)
[2021-07-26] MEDS: Famotidine/PF 20 mg/2ml Vial SLOW IVP SCH ×2 (19:12→21:10)
[2021-07-27 04:49] LABS: #Basophils 0.1 thou/uL (0.0-0.2); #Lymphocytes 0.5 thou/uL (1.20-3.40); #Monocytes 0.5 thou/uL (0.11-0.59); #Neutrophils 8.9 thou/uL (1.40-6.50); %Basophils 0.7 % (0.0-1.0); %Eosinophils 0.3 % (0.0-10.0); %Lymphocytes 5.2 % (21.0-51.0); %Monocytes 5.4 % (0.0-10.0); %Neutrophils 88.5 % (42.0-75.0); Hemoglobin 11.3 g/dL (12.0-16.0); Mean Corpuscular HGB CONC 34.2 g/dL (32.0-36.0); Mean Corpuscular Hemoglobin 32.9 pg (27.0-31.0); Mean Corpuscular Volume 96.2 fL (78.0-98.0); Mean Platelet Volume 6.8 fL (7.4-10.4); Platelet Count 215 thou/uL (130-400); RBC Distribution Width 11.3 % (11.5-14.5); Red Blood Cell (RBC) Count 3.44 mill/uL (4.20-5.40)
[2021-07-27 05:15] LABS: Anion Gap 13 mmol/L (10-20); BUN (Urea Nitrogen) 32 mg/dL (9.8-20.1); Calc. Creatinine Clearance 80 mL/min (70-130); Calcium 8.8 mg/dL (7.8-10.44); Carbon Dioxide 25 mmol/L (23-31); Chloride 105 mmol/L (98-107); Glucose 196 mg/dL (80-115); Potassium 4.6 mmol/L (3.5-5.1); Sodium 138 mmol/L (136-145)
[2021-07-27] MEDS: Metoclopramide HCl 10 MG/2 ML VIAL IVP SCH ×3 (06:43→21:23)
[2021-07-27 07:19] LABS: Actual Bicarbonate (HCO3a) 23.7 mEq/L (22-28); Base Excess (BEa) 0.9 mEq/L (-2.0 to +3.0); CO2 Tension 31.9 mmHg (35.0-45.0); Calcium, Ionized (arterial) 1.21 mmol/L (1.12-1.30); Carboxyhemoglobin (COHb) 1.1 gm% (0.0-3.0); Hemoglobin (Hb) 11.9 g/dL (12.0-16.0); Potassium - ABG Lab 4.76 mmol/L (3.70-5.30); pH, Arterial 7.49 (7.35-7.45)
[2021-07-27 07:20] LABS: ALV-art Gradient 268.025 mmHg (0-20); O2 Tension (PaO2), arterial 48.6 mmHg (> 80.0); Puncture Site RRA
[2021-07-27] MEDS: Enoxaparin Sodium 40 MG/0.4 ML SYRINGE SC SCH ×2 (09:23→21:24)
[2021-07-27] MEDS: BARICITINIB 2 MG TAB PO SCH (09:24)
[2021-07-27] MEDS: Aspirin 81 mg Enteric Coated Tablet PO SCH (09:24)
[2021-07-27] MEDS: Famotidine/PF 20 mg/2ml Vial SLOW IVP SCH ×2 (09:24→21:30)
[2021-07-27] MEDS: Zinc Sulfate 220 MG CAP PO SCH (09:25)
[2021-07-27] MEDS: Amlodipine 10 MG TAB PO SCH (09:25)
[2021-07-27] MEDS: Cholecalciferol (Vitamin D3) 400 UNITS TAB PO SCH (09:25)
[2021-07-27] MEDS: Ascorbic Acid 500 mg Chewable Tablet PO SCH (09:25)
[2021-07-27] MEDS: Lantus 1000 UNITS/10 ML VIAL SC SCH ×2 (09:26→21:25)
[2021-07-27 09:47] LABS: ALT (SGPT) 76 U/L (8-55); AST (SGOT) 59 U/L (5-34); Albumin 2.9 g/dL (3.4-4.8); Alkaline Phosphatase 419 U/L (40-110); Bilirubin, Direct 0.7 mg/dL (0.1-0.3); Protein, Total 5.5 g/dL (5.8-8.1)
[2021-07-27] MEDS: HumaLOG 300 UNITS/3 ML VIAL SC PRN ×3 (10:08→17:22)
[2021-07-27] MEDS: methylPREDNISolone Sod Succ/PF 60 MG in Sodium Chloride 0.9% 250 ML 250 ML IVPB SCH (12:11)
[2021-07-27] MEDS ORDERED: Fentanyl CADD 100 ML ONE (13:05)
[2021-07-27] MEDS: Fentanyl CADD 100 ML IV SCH (13:35)
[2021-07-27] MEDS: Propofol 1,000 MG/100 ML VIAL IV PRN (16:49)
[2021-07-28] MEDS: Propofol 1,000 MG/100 ML VIAL IV PRN ×2 (01:44→10:57)
[2021-07-28 04:47] LABS: Anion Gap 14 mmol/L (10-20); BUN (Urea Nitrogen) 32 mg/dL (9.8-20.1); Calc. Creatinine Clearance 74 mL/min (70-130); Calcium 8.7 mg/dL (7.8-10.44); Carbon Dioxide 25 mmol/L (23-31); Chloride 100 mmol/L (98-107); Glucose 268 mg/dL (80-115); Potassium 4.9 mmol/L (3.5-5.1); Sodium 134 mmol/L (136-145)
[2021-07-28 04:48] LABS: ALT (SGPT) 86 U/L (8-55); AST (SGOT) 60 U/L (5-34); Albumin 2.9 g/dL (3.4-4.8); Alkaline Phosphatase 416 U/L (40-110); Bilirubin, Direct 0.6 mg/dL (0.1-0.3); Bilirubin, Total 0.9 mg/dL (0.2-1.2); Protein, Total 5.5 g/dL (5.8-8.1)
[2021-07-28] MEDS: HumaLOG 300 UNITS/3 ML VIAL SC PRN ×4 (04:56→22:18)
[2021-07-28] MEDS ORDERED: Fentanyl CADD 100 ML ONE (05:43)
[2021-07-28] MEDS: Fentanyl CADD 100 ML IV SCH (06:01)
[2021-07-28 06:15] LABS: Band 6 % (5-11); Hemoglobin 11.3 g/dL (12.0-16.0); Lymphocytes 16 % (21-51); MDiff Complete? YES; Mean Corpuscular HGB CONC 33.9 g/dL (32.0-36.0); Mean Corpuscular Hemoglobin 32.5 pg (27.0-31.0); Mean Corpuscular Volume 95.8 fL (78.0-98.0); Mean Platelet Volume 6.9 fL (7.4-10.4); Monocytes 1 % (0-10); Neutrophil 77 % (42-75); Platelet Count 214 thou/uL (130-400); RBC Distribution Width 11.4 % (11.5-14.5); Red Blood Cell (RBC) Count 3.48 mill/uL (4.20-5.40); White Blood Cell (WBC) Count 11.2 thou/uL (4.8-10.8)
[2021-07-28] MEDS: Metoclopramide HCl 10 MG/2 ML VIAL IVP SCH ×3 (06:24→21:39)
[2021-07-28 08:08] LABS: Actual Bicarbonate (HCO3a) 24.9 mEq/L (22-28); Base Excess (BEa) 0.8 mEq/L (-2.0 to +3.0); CO2 Tension 38.1 mmHg (35.0-45.0); Calcium, Ionized (arterial) 1.18 mmol/L (1.12-1.30); Carboxyhemoglobin (COHb) 0.7 gm% (0.0-3.0); Potassium - ABG Lab 4.91 mmol/L (3.70-5.30); pH, Arterial 7.43 (7.35-7.45)
[2021-07-28 08:09] LABS: O2 Tension (PaO2), arterial 49.4 mmHg (> 80.0); Puncture Site RRA
[2021-07-28 08:10] LABS: ALV-art Gradient 330.775 mmHg (0-20)
[2021-07-28] MEDS: Cholecalciferol (Vitamin D3) 400 UNITS TAB PO SCH (09:06)
[2021-07-28] MEDS: BARICITINIB 2 MG TAB PO SCH (09:06)
[2021-07-28] MEDS: Aspirin 81 mg Enteric Coated Tablet PO SCH (09:06)
[2021-07-28] MEDS: Enoxaparin Sodium 40 MG/0.4 ML SYRINGE SC SCH ×2 (09:07→21:39)
[2021-07-28] MEDS: methylPREDNISolone Sod Succ/PF 60 MG in Sodium Chloride 0.9% 250 ML 250 ML IVPB SCH (09:07)
[2021-07-28] MEDS: Ascorbic Acid 500 mg Chewable Tablet PO SCH (09:07)
[2021-07-28] MEDS: Amlodipine 10 MG TAB PO SCH (09:07)
[2021-07-28] MEDS: Zinc Sulfate 220 MG CAP PO SCH (09:07)
[2021-07-28] MEDS: Famotidine/PF 20 mg/2ml Vial SLOW IVP SCH ×2 (09:16→21:39)
[2021-07-28] MEDS: Lantus 1000 UNITS/10 ML VIAL SC SCH ×2 (09:17→21:47)
[2021-07-28] MEDS: hydrALAZINE 20 MG/ML VIAL SLOW IVP PRN (18:06)
[2021-07-28] MEDS: Lorazepam 2 MG/ML VIAL SLOW IVP PRN (18:36)
[2021-07-29] MEDS: Fentanyl CADD 100 ML IV SCH ×2 (01:14→21:02)
[2021-07-29 04:19] LABS: Hemoglobin 11.3 g/dL (12.0-16.0); Mean Corpuscular HGB CONC 33.5 g/dL (32.0-36.0); Mean Corpuscular Hemoglobin 32.2 pg (27.0-31.0); Mean Corpuscular Volume 96.2 fL (78.0-98.0); Mean Platelet Volume 7.2 fL (7.4-10.4); Platelet Count 248 thou/uL (130-400); RBC Distribution Width 11.5 % (11.5-14.5); Red Blood Cell (RBC) Count 3.51 mill/uL (4.20-5.40); White Blood Cell (WBC) Count 14.7 thou/uL (4.8-10.8)
[2021-07-29 04:28] LABS: ALT (SGPT) 99 U/L (8-55); AST (SGOT) 60 U/L (5-34); Albumin 2.7 g/dL (3.4-4.8); Alkaline Phosphatase 352 U/L (40-110); Anion Gap 15 mmol/L (10-20); BUN (Urea Nitrogen) 28 mg/dL (9.8-20.1); Bilirubin, Direct 0.4 mg/dL (0.1-0.3); Bilirubin, Total 0.8 mg/dL (0.2-1.2); Calc. Creatinine Clearance 84 mL/min (70-130); Calcium 8.6 mg/dL (7.8-10.44); Carbon Dioxide 23 mmol/L (23-31); Chloride 98 mmol/L (98-107); Glucose 163 mg/dL (80-115); Potassium 4.7 mmol/L (3.5-5.1); Protein, Total 5.5 g/dL (5.8-8.1); Sodium 131 mmol/L (136-145)
[2021-07-29] MEDS: Metoclopramide HCl 10 MG/2 ML VIAL IVP SCH ×3 (05:57→23:37)
[2021-07-29 06:26] LABS: Band 12 % (5-11); Lymphocytes 1 % (21-51); MDiff Complete? YES; Monocytes 6 % (0-10); Myelocyte 1 % (0-0); Neutrophil 80 % (42-75)
[2021-07-29 07:37] LABS: Actual Bicarbonate (HCO3a) 25.2 mEq/L (22-28); Base Excess (BEa) 1.7 mEq/L (-2.0 to +3.0); CO2 Tension 35.6 mmHg (35.0-45.0); Calcium, Ionized (arterial) 1.19 mmol/L (1.12-1.30); Carboxyhemoglobin (COHb) 0.7 gm% (0.0-3.0); Hemoglobin (Hb) 11.9 g/dL (12.0-16.0); O2 Tension (PaO2), arterial 63.1 mmHg (> 80.0); pH, Arterial 7.47 (7.35-7.45)
[2021-07-29 07:40] LABS: Puncture Site RRA
[2021-07-29] MEDS: Famotidine/PF 20 mg/2ml Vial SLOW IVP SCH ×2 (08:25→20:45)
[2021-07-29] MEDS: Zinc Sulfate 220 MG CAP PO SCH (08:27)
[2021-07-29] MEDS: Amlodipine 10 MG TAB PO SCH (08:27)
[2021-07-29] MEDS: Aspirin 81 mg Enteric Coated Tablet PO SCH (08:28)
[2021-07-29] MEDS: Enoxaparin Sodium 40 MG/0.4 ML SYRINGE SC SCH ×2 (08:28→20:25)
[2021-07-29] MEDS: Ascorbic Acid 500 mg Chewable Tablet PO SCH (08:28)
[2021-07-29] MEDS: Lantus 1000 UNITS/10 ML VIAL SC SCH ×2 (08:29→20:26)
[2021-07-29] MEDS: Cholecalciferol (Vitamin D3) 400 UNITS TAB PO SCH (08:29)
[2021-07-29] MEDS: BARICITINIB 2 MG TAB PO SCH (08:29)
[2021-07-29] MEDS: methylPREDNISolone Sod Succ/PF 60 MG in Sodium Chloride 0.9% 250 ML 250 ML IVPB SCH (09:04)
[2021-07-29] MEDS: HumaLOG 300 UNITS/3 ML VIAL SC PRN ×3 (10:19→22:51)
[2021-07-29] MEDS: Propofol 1,000 MG/100 ML VIAL IV PRN (15:35)
[2021-07-29] MEDS: Lorazepam 2 MG/ML VIAL SLOW IVP PRN (20:06)
[2021-07-29] MEDS: Doxycycline 100 MG CAP PO SCH (20:25)
[2021-07-30] MEDS: Propofol 1,000 MG/100 ML VIAL IV PRN ×3 (00:59→18:00)
[2021-07-30 05:00] LABS: #Eosinphils 0.1 thou/uL (0.0-0.7); #Lymphocytes 0.6 thou/uL (1.20-3.40); #Neutrophils 10.3 thou/uL (1.40-6.50); %Basophils 0.1 % (0.0-1.0); %Eosinophils 0.5 % (0.0-10.0); %Lymphocytes 4.9 % (21.0-51.0); %Monocytes 8.7 % (0.0-10.0); %Neutrophils 85.8 % (42.0-75.0); Hemoglobin 10.8 g/dL (12.0-16.0); Mean Corpuscular Hemoglobin 32.6 pg (27.0-31.0); Mean Corpuscular Volume 95.8 fL (78.0-98.0); Mean Platelet Volume 7.2 fL (7.4-10.4); Platelet Count 238 thou/uL (130-400); RBC Distribution Width 11.5 % (11.5-14.5); Red Blood Cell (RBC) Count 3.32 mill/uL (4.20-5.40)
[2021-07-30] MEDS: Metoclopramide HCl 10 MG/2 ML VIAL IVP SCH ×3 (05:13→22:11)
[2021-07-30] MEDS: HumaLOG 300 UNITS/3 ML VIAL SC PRN ×4 (05:13→21:04)
[2021-07-30 05:18] LABS: ALT (SGPT) 79 U/L (8-55); AST (SGOT) 41 U/L (5-34); Albumin 2.7 g/dL (3.4-4.8); Alkaline Phosphatase 331 U/L (40-110); Anion Gap 13 mmol/L (10-20); BUN (Urea Nitrogen) 27 mg/dL (9.8-20.1); Bilirubin, Direct 0.4 mg/dL (0.1-0.3); Bilirubin, Total 0.6 mg/dL (0.2-1.2); Calc. Creatinine Clearance 83 mL/min (70-130); Calcium 8.7 mg/dL (7.8-10.44); Carbon Dioxide 28 mmol/L (23-31); Chloride 97 mmol/L (98-107); Glucose 166 mg/dL (80-115); Potassium 4.5 mmol/L (3.5-5.1); Protein, Total 5.3 g/dL (5.8-8.1); Sodium 133 mmol/L (136-145)
[2021-07-30 07:54] LABS: Actual Bicarbonate (HCO3a) 27.2 mEq/L (22-28); Base Excess (BEa) 3.9 mEq/L (-2.0 to +3.0); CO2 Tension 36.4 mmHg (35.0-45.0); Calcium, Ionized (arterial) 1.19 mmol/L (1.12-1.30); Carboxyhemoglobin (COHb) 0.9 gm% (0.0-3.0); Hemoglobin (Hb) 12.1 g/dL (12.0-16.0); O2 Tension (PaO2), arterial 68.1 mmHg (> 80.0); Potassium - ABG Lab 4.42 mmol/L (3.70-5.30); pH, Arterial 7.49 (7.35-7.45)
[2021-07-30 07:56] LABS: Puncture Site RRA
[2021-07-30] MEDS: Doxycycline 100 MG CAP PO SCH (08:46)
[2021-07-30] MEDS: Zinc Sulfate 220 MG CAP PO SCH (08:46)
[2021-07-30] MEDS: Cholecalciferol (Vitamin D3) 400 UNITS TAB PO SCH (08:46)
[2021-07-30] MEDS: BARICITINIB 2 MG TAB PO SCH (08:47)
[2021-07-30] MEDS: Amlodipine 10 MG TAB PO SCH (08:47)
[2021-07-30] MEDS: methylPREDNISolone Sod Succ/PF 60 MG in Sodium Chloride 0.9% 250 ML 250 ML IVPB SCH (08:47)
[2021-07-30] MEDS: Aspirin 81 mg Enteric Coated Tablet PO SCH (08:47)
[2021-07-30] MEDS: Ascorbic Acid 500 mg Chewable Tablet PO SCH (08:47)
[2021-07-30] MEDS: Enoxaparin Sodium 40 MG/0.4 ML SYRINGE SC SCH ×2 (08:47→20:49)
[2021-07-30] MEDS: Lantus 1000 UNITS/10 ML VIAL SC SCH ×2 (08:48→21:03)
[2021-07-30] MEDS: Famotidine/PF 20 mg/2ml Vial SLOW IVP SCH ×2 (08:50→20:49)
[2021-07-30] MEDS: Lorazepam 2 MG/ML VIAL SLOW IVP PRN (11:46)
[2021-07-30] MEDS: Fentanyl CADD 100 ML IV SCH (14:02)
[2021-07-31] MEDS: Propofol 1,000 MG/100 ML VIAL IV PRN ×3 (03:31→20:56)
[2021-07-31 04:29] LABS: Hemoglobin 11.8 g/dL (12.0-16.0); Mean Corpuscular HGB CONC 34.3 g/dL (32.0-36.0); Mean Corpuscular Hemoglobin 32.9 pg (27.0-31.0); Mean Corpuscular Volume 95.9 fL (78.0-98.0); Mean Platelet Volume 7.5 fL (7.4-10.4); Platelet Count 295 thou/uL (130-400); RBC Distribution Width 11.5 % (11.5-14.5); Red Blood Cell (RBC) Count 3.59 mill/uL (4.20-5.40); White Blood Cell (WBC) Count 11.6 thou/uL (4.8-10.8)
[2021-07-31 04:40] LABS: Anion Gap 10 mmol/L (10-20); BUN (Urea Nitrogen) 27 mg/dL (9.8-20.1); Calc. Creatinine Clearance 81 mL/min (70-130); Calcium 8.9 mg/dL (7.8-10.44); Carbon Dioxide 32 mmol/L (23-31); Chloride 97 mmol/L (98-107); Glucose 144 mg/dL (80-115); Potassium 4.6 mmol/L (3.5-5.1); Sodium 134 mmol/L (136-145)
[2021-07-31] MEDS: Metoclopramide HCl 10 MG/2 ML VIAL IVP SCH ×3 (05:56→21:04)
[2021-07-31 06:38] LABS: Band 6 % (5-11); Lymphocytes 4 % (21-51); MDiff Complete? YES; Metamyelocyte 3 % (0-0); Monocytes 7 % (0-10); Myelocyte 2 % (0-0); Neutrophil 78 % (42-75)
[2021-07-31 07:34] LABS: Actual Bicarbonate (HCO3a) 24.9 mEq/L (22-28); Base Excess (BEa) 1.7 mEq/L (-2.0 to +3.0); Calcium, Ionized (arterial) 1.16 mmol/L (1.12-1.30); Hemoglobin (Hb) 10.7 g/dL (12.0-16.0); O2 Tension (PaO2), arterial 65.2 mmHg (> 80.0); Potassium - ABG Lab 4.27 mmol/L (3.70-5.30); pH, Arterial 7.48 (7.35-7.45)
[2021-07-31] MEDS: Enoxaparin Sodium 40 MG/0.4 ML SYRINGE SC SCH ×2 (09:00→20:56)
[2021-07-31] MEDS: Aspirin 81 mg Enteric Coated Tablet PO SCH (09:00)
[2021-07-31] MEDS: Amlodipine 10 MG TAB PO SCH (09:00)
[2021-07-31] MEDS: Famotidine/PF 20 mg/2ml Vial SLOW IVP SCH (09:00)
[2021-07-31] MEDS: BARICITINIB 2 MG TAB PO SCH (09:00)
[2021-07-31] MEDS: Zinc Sulfate 220 MG CAP PO SCH (09:06)
[2021-07-31] MEDS: Ascorbic Acid 500 mg Chewable Tablet PO SCH (09:06)
[2021-07-31] MEDS: Lantus 1000 UNITS/10 ML VIAL SC SCH ×2 (09:07→20:59)
[2021-07-31] MEDS: methylPREDNISolone Sod Succ/PF 60 MG in Sodium Chloride 0.9% 250 ML 250 ML IVPB SCH (09:07)
[2021-07-31 09:17] LABS: Puncture Site RRA
[2021-07-31] MEDS: Lorazepam 2 MG/ML VIAL SLOW IVP PRN (09:27)
[2021-07-31] MEDS: Fentanyl CADD 100 ML IV SCH (09:30)
[2021-07-31] MEDS: HumaLOG 300 UNITS/3 ML VIAL SC PRN ×2 (11:09→16:50)
[2021-07-31] MEDS ORDERED: Furosemide 40 MG/4 ML VIAL SLOW IVP SCH (13:45)
[2021-07-31] MEDS: Famotidine 20 MG TAB PO SCH (20:56)
[2021-07-31] MEDS: Acetaminophen 325 MG TAB PO PRN (23:13)
[2021-08-01] MEDS: Fentanyl CADD 100 ML IV SCH ×2 (04:33→18:28)
[2021-08-01 04:58] LABS: ALT (SGPT) 104 U/L (8-55); AST (SGOT) 55 U/L (5-34); Albumin 3.3 g/dL (3.4-4.8); Alkaline Phosphatase 353 U/L (40-110); Anion Gap 13 mmol/L (10-20); BUN (Urea Nitrogen) 34 mg/dL (9.8-20.1); Bilirubin, Direct 0.4 mg/dL (0.1-0.3); Bilirubin, Total 0.7 mg/dL (0.2-1.2); Calc. Creatinine Clearance 76 mL/min (70-130); Calcium 9.4 mg/dL (7.8-10.44); Carbon Dioxide 35 mmol/L (23-31); Chloride 92 mmol/L (98-107); Glucose 173 mg/dL (80-115); Potassium 4.5 mmol/L (3.5-5.1); Protein, Total 6.4 g/dL (5.8-8.1); Sodium 135 mmol/L (136-145)
[2021-08-01] MEDS: HumaLOG 300 UNITS/3 ML VIAL SC PRN ×2 (05:13→10:47)
[2021-08-01 05:27] LABS: Band 7 % (5-11); Hemoglobin 12.4 g/dL (12.0-16.0); Lymphocytes 7 % (21-51); MDiff Complete? YES; Mean Corpuscular HGB CONC 34.1 g/dL (32.0-36.0); Mean Corpuscular Hemoglobin 32.8 pg (27.0-31.0); Mean Corpuscular Volume 96.2 fL (78.0-98.0); Mean Platelet Volume 6.7 fL (7.4-10.4); Monocytes 8 % (0-10); Myelocyte 2 % (0-0); Neutrophil 76 % (42-75); Platelet Count 370 thou/uL (130-400); RBC Distribution Width 11.5 % (11.5-14.5); Red Blood Cell (RBC) Count 3.78 mill/uL (4.20-5.40); White Blood Cell (WBC) Count 14.6 thou/uL (4.8-10.8)
[2021-08-01] MEDS: Metoclopramide HCl 10 MG/2 ML VIAL IVP SCH ×3 (05:33→21:23)
[2021-08-01] MEDS: Propofol 1,000 MG/100 ML VIAL IV PRN ×2 (06:51→21:36)
[2021-08-01 07:30] LABS: Actual Bicarbonate (HCO3a) 27.8 mEq/L (22-28); Base Excess (BEa) 4.2 mEq/L (-2.0 to +3.0); CO2 Tension 38.1 mmHg (35.0-45.0); Calcium, Ionized (arterial) 1.14 mmol/L (1.12-1.30); Carboxyhemoglobin (COHb) 0.9 gm% (0.0-3.0); O2 Tension (PaO2), arterial 64.4 mmHg (> 80.0); Potassium - ABG Lab 4.14 mmol/L (3.70-5.30); pH, Arterial 7.48 (7.35-7.45)
[2021-08-01 08:00] LABS: ALV-art Gradient 280.125 mmHg (0-20); Puncture Site RRA
[2021-08-01] MEDS: Enoxaparin Sodium 40 MG/0.4 ML SYRINGE SC SCH ×2 (09:24→21:23)
[2021-08-01] MEDS: Ascorbic Acid 500 mg Chewable Tablet PO SCH (09:25)
[2021-08-01] MEDS: Amlodipine 10 MG TAB PO SCH (09:25)
[2021-08-01] MEDS: Zinc Sulfate 220 MG CAP PO SCH (09:25)
[2021-08-01] MEDS: Lantus 1000 UNITS/10 ML VIAL SC SCH ×2 (09:26→21:28)
[2021-08-01] MEDS: BARICITINIB 2 MG TAB PO SCH (09:26)
[2021-08-01] MEDS: Aspirin 81 mg Enteric Coated Tablet PO SCH (09:26)
[2021-08-01] MEDS: Famotidine 20 MG TAB PO SCH ×2 (09:26→21:23)
[2021-08-01] MEDS: methylPREDNISolone Sod Succ/PF 60 MG in Sodium Chloride 0.9% 250 ML 250 ML IVPB SCH (09:26)
[2021-08-01] MEDS: Lorazepam 2 MG/ML VIAL SLOW IVP PRN (12:27)
[2021-08-02 04:34] LABS: #Eosinphils 0.1 thou/uL (0.0-0.7); #Lymphocytes 0.7 thou/uL (1.20-3.40); #Monocytes 0.7 thou/uL (0.11-0.59); #Neutrophils 8.6 thou/uL (1.40-6.50); %Eosinophils 0.9 % (0.0-10.0); %Lymphocytes 6.9 % (21.0-51.0); %Monocytes 7.1 % (0.0-10.0); %Neutrophils 85.1 % (42.0-75.0); Hemoglobin 11.7 g/dL (12.0-16.0); Mean Corpuscular HGB CONC 33.9 g/dL (32.0-36.0); Mean Corpuscular Hemoglobin 32.8 pg (27.0-31.0); Mean Corpuscular Volume 96.8 fL (78.0-98.0); Mean Platelet Volume 6.8 fL (7.4-10.4); Platelet Count 327 thou/uL (130-400); RBC Distribution Width 11.4 % (11.5-14.5); Red Blood Cell (RBC) Count 3.58 mill/uL (4.20-5.40); White Blood Cell (WBC) Count 10.1 thou/uL (4.8-10.8)
[2021-08-02 05:05] LABS: Anion Gap 10 mmol/L (10-20); BUN (Urea Nitrogen) 28 mg/dL (9.8-20.1); Calc. Creatinine Clearance 85 mL/min (70-130); Calcium 9.3 mg/dL (7.8-10.44); Carbon Dioxide 35 mmol/L (23-31); Chloride 93 mmol/L (98-107); Glucose 136 mg/dL (80-115); Potassium 4.4 mmol/L (3.5-5.1); Sodium 134 mmol/L (136-145)
[2021-08-02] MEDS: Metoclopramide HCl 10 MG/2 ML VIAL IVP SCH ×3 (05:37→21:10)
[2021-08-02 06:49] LABS: Actual Bicarbonate (HCO3a) 32.5 mEq/L (22-28); Base Excess (BEa) 8.2 mEq/L (-2.0 to +3.0); CO2 Tension 43.6 mmHg (35.0-45.0); Calcium, Ionized (arterial) 1.17 mmol/L (1.12-1.30); Hemoglobin (Hb) 12.1 g/dL (12.0-16.0); pH, Arterial 7.49 (7.35-7.45)
[2021-08-02] MEDS: Fentanyl CADD 100 ML IV SCH (07:03)
[2021-08-02 07:14] LABS: O2 Tension (PaO2), arterial 59.6 mmHg (> 80.0); Puncture Site RBA
[2021-08-02] MEDS ORDERED: Amlodipine 10 MG TAB ONE (08:45)
[2021-08-02] MEDS ORDERED: Ascorbic Acid 500 mg Chewable Tablet ONE (08:45)
[2021-08-02] MEDS ORDERED: Aspirin Chewable 81 MG TAB ONE (08:46)
[2021-08-02] MEDS ORDERED: Enoxaparin Sodium 40 MG/0.4 ML SYRINGE ONE (08:47)
[2021-08-02] MEDS ORDERED: Famotidine/PF 20 mg/2ml Vial ONE (08:47)
[2021-08-02] MEDS ORDERED: Zinc Sulfate 220 MG CAP ONE (08:48)
[2021-08-02] MEDS: Amlodipine 10 MG TAB PO SCH (09:16)
[2021-08-02] MEDS: Aspirin 81 mg Enteric Coated Tablet PO SCH (09:16)
[2021-08-02] MEDS: Enoxaparin Sodium 40 MG/0.4 ML SYRINGE SC SCH ×2 (09:16→21:10)
[2021-08-02] MEDS: Ascorbic Acid 500 mg Chewable Tablet PO SCH (09:16)
[2021-08-02] MEDS ORDERED: Labetalol HCl 100 MG/20 ML VIAL SLOW IVP PRN (09:25)
[2021-08-02] MEDS: Zinc Sulfate 220 MG CAP PO SCH (10:16)
[2021-08-02] MEDS: methylPREDNISolone Sod Succ/PF 60 MG in Sodium Chloride 0.9% 250 ML 250 ML IVPB SCH (10:16)
[2021-08-02] MEDS: Lantus 1000 UNITS/10 ML VIAL SC SCH ×2 (10:28→21:37)
[2021-08-02] MEDS: HumaLOG 300 UNITS/3 ML VIAL SC PRN ×2 (10:59→21:35)
[2021-08-02] MEDS: Ondansetron PF 4 MG/2 ML Vial IVP PRN (11:43)
[2021-08-02] MEDS: BARICITINIB 2 MG TAB PO SCH (11:43)
[2021-08-02] MEDS: Propofol 1,000 MG/100 ML VIAL IV PRN (13:01)
[2021-08-03] MEDS ORDERED: Ondansetron PF 4 MG/2 ML Vial ONE (02:32)
[2021-08-03] MEDS: Ondansetron PF 4 MG/2 ML Vial IVP PRN ×2 (02:35→16:48)
[2021-08-03] MEDS ORDERED: Fentanyl CADD 100 ML ONE (02:42)
[2021-08-03] MEDS: Fentanyl CADD 100 ML IV SCH ×2 (02:44→16:01)
[2021-08-03] MEDS: Propofol 1,000 MG/100 ML VIAL IV PRN ×2 (04:17→16:05)
[2021-08-03 04:24] LABS: #Eosinphils 0.1 thou/uL (0.0-0.7); #Lymphocytes 0.5 thou/uL (1.20-3.40); #Monocytes 0.7 thou/uL (0.11-0.59); #Neutrophils 9.6 thou/uL (1.40-6.50); %Basophils 0.2 % (0.0-1.0); %Eosinophils 0.6 % (0.0-10.0); %Lymphocytes 4.7 % (21.0-51.0); %Monocytes 6.3 % (0.0-10.0); %Neutrophils 88.2 % (42.0-75.0); Hemoglobin 11.1 g/dL (12.0-16.0); Mean Corpuscular Volume 96.9 fL (78.0-98.0); Mean Platelet Volume 6.6 fL (7.4-10.4); Platelet Count 335 thou/uL (130-400); RBC Distribution Width 11.4 % (11.5-14.5); Red Blood Cell (RBC) Count 3.35 mill/uL (4.20-5.40); White Blood Cell (WBC) Count 10.8 thou/uL (4.8-10.8)
[2021-08-03 04:40] LABS: Anion Gap 11 mmol/L (10-20); BUN (Urea Nitrogen) 28 mg/dL (9.8-20.1); Calc. Creatinine Clearance 94 mL/min (70-130); Calcium 9.1 mg/dL (7.8-10.44); Carbon Dioxide 37 mmol/L (23-31); Chloride 93 mmol/L (98-107); Glucose 128 mg/dL (80-115); Potassium 4.6 mmol/L (3.5-5.1); Sodium 136 mmol/L (136-145)
[2021-08-03] MEDS ORDERED: Metoclopramide 10 MG/10 ML UDCUP ONE (05:59)
[2021-08-03] MEDS: Metoclopramide HCl 10 MG/2 ML VIAL IVP SCH ×3 (06:08→21:38)
[2021-08-03 06:50] LABS: Base Excess (BEa) 9.4 mEq/L (-2.0 to +3.0); CO2 Tension 52.5 mmHg (35.0-45.0); Calcium, Ionized (arterial) 1.19 mmol/L (1.12-1.30); Carboxyhemoglobin (COHb) 0.6 gm% (0.0-3.0); Hemoglobin (Hb) 11.3 g/dL (12.0-16.0); O2 Tension (PaO2), arterial 64.9 mmHg (> 80.0); Potassium - ABG Lab 4.34 mmol/L (3.70-5.30); pH, Arterial 7.44 (7.35-7.45)
[2021-08-03 07:55] LABS: Puncture Site RBA
[2021-08-03 07:56] LABS: ALV-art Gradient 283.015 mmHg (0-20)
[2021-08-03] MEDS: Ascorbic Acid 500 mg Chewable Tablet PO SCH (09:42)
[2021-08-03] MEDS: Aspirin 81 mg Enteric Coated Tablet PO SCH (09:43)
[2021-08-03] MEDS: Amlodipine 10 MG TAB PO SCH (09:43)
[2021-08-03] MEDS: BARICITINIB 2 MG TAB PO SCH (09:44)
[2021-08-03] MEDS: Enoxaparin Sodium 40 MG/0.4 ML SYRINGE SC SCH ×2 (09:44→21:38)
[2021-08-03] MEDS: Zinc Sulfate 220 MG CAP PO SCH (09:45)
[2021-08-03] MEDS: methylPREDNISolone Sod Succ/PF 60 MG in Sodium Chloride 0.9% 250 ML 250 ML IVPB SCH (09:45)
[2021-08-03] MEDS: Lantus 1000 UNITS/10 ML VIAL SC SCH ×2 (09:46→21:38)
[2021-08-03] MEDS: HumaLOG 300 UNITS/3 ML VIAL SC PRN ×3 (11:08→21:40)
[2021-08-03] MEDS: Pantoprazole 40 MG VIAL IVP SCH (13:47)
[2021-08-04] MEDS: Propofol 1,000 MG/100 ML VIAL IV PRN (02:15)
[2021-08-04 04:38] LABS: #Basophils 0.1 thou/uL (0.0-0.2); #Eosinphils 0.1 thou/uL (0.0-0.7); #Lymphocytes 0.5 thou/uL (1.20-3.40); #Monocytes 0.7 thou/uL (0.11-0.59); #Neutrophils 9.4 thou/uL (1.40-6.50); %Basophils 0.5 % (0.0-1.0); %Eosinophils 0.8 % (0.0-10.0); %Lymphocytes 4.5 % (21.0-51.0); %Monocytes 6.5 % (0.0-10.0); %Neutrophils 87.7 % (42.0-75.0); Hemoglobin 11.1 g/dL (12.0-16.0); Mean Corpuscular HGB CONC 33.8 g/dL (32.0-36.0); Mean Corpuscular Hemoglobin 32.8 pg (27.0-31.0); Mean Corpuscular Volume 96.8 fL (78.0-98.0); Mean Platelet Volume 6.2 fL (7.4-10.4); Platelet Count 334 thou/uL (130-400); RBC Distribution Width 11.3 % (11.5-14.5); Red Blood Cell (RBC) Count 3.39 mill/uL (4.20-5.40); White Blood Cell (WBC) Count 10.7 thou/uL (4.8-10.8)
[2021-08-04 05:00] LABS: ALT (SGPT) 93 U/L (8-55); AST (SGOT) 30 U/L (5-34); Albumin 3.1 g/dL (3.4-4.8); Alkaline Phosphatase 249 U/L (40-110); Anion Gap 12 mmol/L (10-20); BUN (Urea Nitrogen) 28 mg/dL (9.8-20.1); Bilirubin, Direct 0.3 mg/dL (0.1-0.3); Bilirubin, Total 0.6 mg/dL (0.2-1.2); Calc. Creatinine Clearance 88 mL/min (70-130); Calcium 8.9 mg/dL (7.8-10.44); Carbon Dioxide 34 mmol/L (23-31); Chloride 95 mmol/L (98-107); Glucose 145 mg/dL (80-115); Potassium 4.6 mmol/L (3.5-5.1); Protein, Total 5.8 g/dL (5.8-8.1); Sodium 136 mmol/L (136-145)
[2021-08-04] MEDS: Metoclopramide HCl 10 MG/2 ML VIAL IVP SCH ×3 (05:50→21:10)
[2021-08-04 06:50] LABS: Actual Bicarbonate (HCO3a) 30.6 mEq/L (22-28); Base Excess (BEa) 5.8 mEq/L (-2.0 to +3.0); CO2 Tension 45.8 mmHg (35.0-45.0); Calcium, Ionized (arterial) 1.18 mmol/L (1.12-1.30); Carboxyhemoglobin (COHb) 0.4 gm% (0.0-3.0); Hemoglobin (Hb) 11.4 g/dL (12.0-16.0); O2 Tension (PaO2), arterial 60.5 mmHg (> 80.0); Potassium - ABG Lab 4.43 mmol/L (3.70-5.30); pH, Arterial 7.44 (7.35-7.45)
[2021-08-04 06:52] LABS: Puncture Site RRA
[2021-08-04] MEDS: Fentanyl CADD 100 ML IV SCH (08:03)
[2021-08-04] MEDS: methylPREDNISolone Sod Succ/PF 60 MG in Sodium Chloride 0.9% 250 ML 250 ML IVPB SCH (08:06)
[2021-08-04] MEDS: Aspirin 81 mg Enteric Coated Tablet PO SCH (08:26)
[2021-08-04] MEDS: Enoxaparin Sodium 40 MG/0.4 ML SYRINGE SC SCH ×2 (08:26→21:09)
[2021-08-04] MEDS: Amlodipine 10 MG TAB PO SCH (08:26)
[2021-08-04] MEDS: BARICITINIB 2 MG TAB PO SCH (08:26)
[2021-08-04] MEDS: Zinc Sulfate 220 MG CAP PO SCH (08:26)
[2021-08-04] MEDS: Ascorbic Acid 500 mg Chewable Tablet PO SCH (08:28)
[2021-08-04] MEDS: Lantus 1000 UNITS/10 ML VIAL SC SCH ×2 (08:28→21:12)
[2021-08-04] MEDS: Pantoprazole 40 MG VIAL IVP SCH (10:27)
[2021-08-04] MEDS: HumaLOG 300 UNITS/3 ML VIAL SC PRN ×2 (10:33→21:20)
[2021-08-05] MEDS: Fentanyl CADD 100 ML IV SCH ×2 (00:20→16:30)
[2021-08-05] MEDS: Morphine 4 MG/ML VIAL SLOW IVP PRN ×3 (00:35→21:55)
[2021-08-05 04:54] LABS: #Eosinphils 0.1 thou/uL (0.0-0.7); #Lymphocytes 0.5 thou/uL (1.20-3.40); #Monocytes 0.6 thou/uL (0.11-0.59); #Neutrophils 7.6 thou/uL (1.40-6.50); %Eosinophils 0.7 % (0.0-10.0); %Lymphocytes 5.8 % (21.0-51.0); %Neutrophils 86.4 % (42.0-75.0); Hemoglobin 9.6 g/dL (12.0-16.0); Mean Corpuscular HGB CONC 34.2 g/dL (32.0-36.0); Mean Corpuscular Hemoglobin 33.3 pg (27.0-31.0); Mean Corpuscular Volume 97.2 fL (78.0-98.0); Mean Platelet Volume 6.4 fL (7.4-10.4); Platelet Count 267 thou/uL (130-400); RBC Distribution Width 11.2 % (11.5-14.5); White Blood Cell (WBC) Count 8.8 thou/uL (4.8-10.8)
[2021-08-05 05:16] LABS: Anion Gap 10 mmol/L (10-20); BUN (Urea Nitrogen) 32 mg/dL (9.8-20.1); Calc. Creatinine Clearance 89 mL/min (70-130); Calcium 8.7 mg/dL (7.8-10.44); Carbon Dioxide 35 mmol/L (23-31); Chloride 94 mmol/L (98-107); Glucose 125 mg/dL (80-115); Potassium 4.5 mmol/L (3.5-5.1); Sodium 134 mmol/L (136-145)
[2021-08-05] MEDS: Metoclopramide HCl 10 MG/2 ML VIAL IVP SCH ×3 (06:04→21:23)
[2021-08-05 06:48] LABS: Actual Bicarbonate (HCO3a) 32.6 mEq/L (22-28); Calcium, Ionized (arterial) 1.18 mmol/L (1.12-1.30); Carboxyhemoglobin (COHb) 0.2 gm% (0.0-3.0); Hemoglobin (Hb) 11.2 g/dL (12.0-16.0); pH, Arterial 7.42 (7.35-7.45)
[2021-08-05 06:52] LABS: O2 Tension (PaO2), arterial 56.5 mmHg (> 80.0); Puncture Site RRA
[2021-08-05] MEDS: Pantoprazole 40 MG VIAL IVP SCH (08:28)
[2021-08-05] MEDS: Ascorbic Acid 500 mg Chewable Tablet PO SCH (08:28)
[2021-08-05] MEDS: Aspirin 81 mg Enteric Coated Tablet PO SCH (08:28)
[2021-08-05] MEDS: Amlodipine 10 MG TAB PO SCH (08:29)
[2021-08-05] MEDS: BARICITINIB 2 MG TAB PO SCH (08:29)
[2021-08-05] MEDS: Enoxaparin Sodium 40 MG/0.4 ML SYRINGE SC SCH ×2 (08:30→21:24)
[2021-08-05] MEDS: Zinc Sulfate 220 MG CAP PO SCH (08:30)
[2021-08-05] MEDS: Famotidine 20 MG TAB PO SCH (08:45)
[2021-08-05] MEDS: methylPREDNISolone Sod Succ/PF 60 MG in Sodium Chloride 0.9% 250 ML 250 ML IVPB SCH (09:14)
[2021-08-05] MEDS: Lantus 1000 UNITS/10 ML VIAL SC SCH ×2 (09:20→21:24)
[2021-08-05] MEDS: HumaLOG 300 UNITS/3 ML VIAL SC PRN ×2 (09:24→16:47)
[2021-08-05] MEDS: Lorazepam 2 MG/ML VIAL SLOW IVP PRN ×3 (09:26→22:11)
[2021-08-06] MEDS: HumaLOG 300 UNITS/3 ML VIAL SC PRN ×3 (03:35→16:28)
[2021-08-06 04:51] LABS: #Eosinphils 0.1 thou/uL (0.0-0.7); #Lymphocytes 0.5 thou/uL (1.20-3.40); #Monocytes 0.2 thou/uL (0.11-0.59); #Neutrophils 6.2 thou/uL (1.40-6.50); %Basophils 0.5 % (0.0-1.0); %Eosinophils 1.7 % (0.0-10.0); %Lymphocytes 6.4 % (21.0-51.0); %Monocytes 3.1 % (0.0-10.0); %Neutrophils 88.4 % (42.0-75.0); Hemoglobin 9.5 g/dL (12.0-16.0); Mean Corpuscular HGB CONC 33.7 g/dL (32.0-36.0); Mean Corpuscular Hemoglobin 32.9 pg (27.0-31.0); Mean Corpuscular Volume 97.4 fL (78.0-98.0); Mean Platelet Volume 6.6 fL (7.4-10.4); Platelet Count 254 thou/uL (130-400); RBC Distribution Width 11.3 % (11.5-14.5); Red Blood Cell (RBC) Count 2.89 mill/uL (4.20-5.40)
[2021-08-06] MEDS: Morphine 4 MG/ML VIAL SLOW IVP PRN (05:01)
[2021-08-06] MEDS: Metoclopramide HCl 10 MG/2 ML VIAL IVP SCH ×3 (05:02→21:39)
[2021-08-06] MEDS: Lorazepam 2 MG/ML VIAL SLOW IVP PRN (05:08)
[2021-08-06 05:14] LABS: Anion Gap 10 mmol/L (10-20); BUN (Urea Nitrogen) 27 mg/dL (9.8-20.1); Calc. Creatinine Clearance 92 mL/min (70-130); Calcium 8.3 mg/dL (7.8-10.44); Carbon Dioxide 32 mmol/L (23-31); Chloride 95 mmol/L (98-107); Glucose 210 mg/dL (80-115); Potassium 4.4 mmol/L (3.5-5.1); Sodium 133 mmol/L (136-145)
[2021-08-06 08:17] LABS: Actual Bicarbonate (HCO3a) 30.4 mEq/L (22-28); Base Excess (BEa) 5.9 mEq/L (-2.0 to +3.0); CO2 Tension 44.3 mmHg (35.0-45.0); Calcium, Ionized (arterial) 1.13 mmol/L (1.12-1.30); Carboxyhemoglobin (COHb) 0.6 gm% (0.0-3.0); Hemoglobin (Hb) 9.9 g/dL (12.0-16.0); O2 Tension (PaO2), arterial 65.9 mmHg (> 80.0); Potassium - ABG Lab 4.19 mmol/L (3.70-5.30); pH, Arterial 7.46 (7.35-7.45)
[2021-08-06 08:19] LABS: ALV-art Gradient 235.225 mmHg (0-20); Puncture Site RRA
[2021-08-06] MEDS ORDERED: Fentanyl CADD 100 ML ONE (08:42)
[2021-08-06] MEDS: Amlodipine 10 MG TAB PO SCH (08:46)
[2021-08-06] MEDS: Fentanyl CADD 100 ML IV SCH (08:46)
[2021-08-06] MEDS: Ascorbic Acid 500 mg Chewable Tablet PO SCH (08:46)
[2021-08-06] MEDS: BARICITINIB 2 MG TAB PO SCH (08:46)
[2021-08-06] MEDS: Aspirin 81 mg Enteric Coated Tablet PO SCH (08:46)
[2021-08-06] MEDS: Enoxaparin Sodium 40 MG/0.4 ML SYRINGE SC SCH ×2 (08:47→21:24)
[2021-08-06] MEDS: Zinc Sulfate 220 MG CAP PO SCH (08:47)
[2021-08-06] MEDS: Lantus 1000 UNITS/10 ML VIAL SC SCH ×2 (09:11→21:26)
[2021-08-06] MEDS: methylPREDNISolone Sod Succ/PF 60 MG in Sodium Chloride 0.9% 250 ML 250 ML IVPB SCH (10:31)
[2021-08-06] MEDS: Pantoprazole 40 MG VIAL IVP SCH (10:32)
[2021-08-07] MEDS: Lorazepam 2 MG/ML VIAL SLOW IVP PRN ×4 (03:05→23:52)
[2021-08-07] MEDS: hydrALAZINE 20 MG/ML VIAL SLOW IVP PRN (03:14)
[2021-08-07] MEDS: Fentanyl CADD 100 ML IV SCH ×2 (03:37→21:47)
[2021-08-07 04:54] LABS: #Eosinphils 0.1 thou/uL (0.0-0.7); #Lymphocytes 0.6 thou/uL (1.20-3.40); #Monocytes 0.6 thou/uL (0.11-0.59); #Neutrophils 8.8 thou/uL (1.40-6.50); %Eosinophils 0.9 % (0.0-10.0); %Monocytes 5.8 % (0.0-10.0); %Neutrophils 87.3 % (42.0-75.0); Hemoglobin 9.8 g/dL (12.0-16.0); Mean Corpuscular HGB CONC 33.1 g/dL (32.0-36.0); Mean Corpuscular Hemoglobin 31.7 pg (27.0-31.0); Mean Corpuscular Volume 95.8 fL (78.0-98.0); Mean Platelet Volume 5.8 fL (7.4-10.4); Platelet Count 255 thou/uL (130-400); RBC Distribution Width 11.5 % (11.5-14.5); Red Blood Cell (RBC) Count 3.08 mill/uL (4.20-5.40); White Blood Cell (WBC) Count 10.1 thou/uL (4.8-10.8)
[2021-08-07 05:09] LABS: Anion Gap 7 mmol/L (10-20); BUN (Urea Nitrogen) 24 mg/dL (9.8-20.1); Calc. Creatinine Clearance 109 mL/min (70-130); Calcium 8.2 mg/dL (7.8-10.44); Carbon Dioxide 33 mmol/L (23-31); Chloride 95 mmol/L (98-107); Glucose 117 mg/dL (80-115); Potassium 3.9 mmol/L (3.5-5.1); Sodium 131 mmol/L (136-145)
[2021-08-07] MEDS: Metoclopramide HCl 10 MG/2 ML VIAL IVP SCH ×3 (05:14→21:26)
[2021-08-07 07:41] LABS: Actual Bicarbonate (HCO3a) 29.6 mEq/L (22-28); Base Excess (BEa) 5.5 mEq/L (-2.0 to +3.0); CO2 Tension 41.2 mmHg (35.0-45.0); Calcium, Ionized (arterial) 1.15 mmol/L (1.12-1.30); Carboxyhemoglobin (COHb) 0.3 gm% (0.0-3.0); Hemoglobin (Hb) 10.5 g/dL (12.0-16.0); O2 Tension (PaO2), arterial 64.4 mmHg (> 80.0); Potassium - ABG Lab 3.92 mmol/L (3.70-5.30); pH, Arterial 7.47 (7.35-7.45)
[2021-08-07 07:51] LABS: Puncture Site RRA
[2021-08-07] MEDS: Amlodipine 10 MG TAB PO SCH (09:01)
[2021-08-07] MEDS: Ascorbic Acid 500 mg Chewable Tablet PO SCH (09:02)
[2021-08-07] MEDS: Zinc Sulfate 220 MG CAP PO SCH (09:02)
[2021-08-07] MEDS: Aspirin 81 mg Enteric Coated Tablet PO SCH (09:02)
[2021-08-07] MEDS: Enoxaparin Sodium 40 MG/0.4 ML SYRINGE SC SCH ×2 (09:02→21:20)
[2021-08-07] MEDS: Lantus 1000 UNITS/10 ML VIAL SC SCH ×2 (10:45→21:21)
[2021-08-07] MEDS: Pantoprazole 40 MG VIAL IVP SCH (10:46)
[2021-08-07] MEDS: methylPREDNISolone Sod Succ/PF 60 MG in Sodium Chloride 0.9% 250 ML 250 ML IVPB SCH (12:53)
[2021-08-07] MEDS: HumaLOG 300 UNITS/3 ML VIAL SC PRN (22:17)
[2021-08-08 02:10] LABS: #Eosinphils 0.2 thou/uL (0.0-0.7); #Lymphocytes 0.9 thou/uL (1.20-3.40); #Monocytes 0.4 thou/uL (0.11-0.59); #Neutrophils 7.1 thou/uL (1.40-6.50); %Basophils 0.2 % (0.0-1.0); %Eosinophils 2.4 % (0.0-10.0); %Lymphocytes 10.8 % (21.0-51.0); %Monocytes 4.9 % (0.0-10.0); %Neutrophils 81.7 % (42.0-75.0); Hemoglobin 9.9 g/dL (12.0-16.0); Mean Corpuscular Hemoglobin 33.7 pg (27.0-31.0); Mean Corpuscular Volume 96.4 fL (78.0-98.0); Mean Platelet Volume 5.9 fL (7.4-10.4); Platelet Count 225 thou/uL (130-400); RBC Distribution Width 11.5 % (11.5-14.5); Red Blood Cell (RBC) Count 2.94 mill/uL (4.20-5.40); White Blood Cell (WBC) Count 8.6 thou/uL (4.8-10.8)
[2021-08-08] MEDS: Morphine 4 MG/ML VIAL SLOW IVP PRN ×3 (03:35→05:17)
[2021-08-08] MEDS: HumaLOG 300 UNITS/3 ML VIAL SC PRN ×2 (04:32→20:50)
[2021-08-08] MEDS: Metoclopramide HCl 10 MG/2 ML VIAL IVP SCH ×3 (05:19→20:36)
[2021-08-08] MEDS: Lorazepam 2 MG/ML VIAL SLOW IVP PRN ×3 (08:05→21:23)
[2021-08-08 08:40] LABS: Actual Bicarbonate (HCO3a) 29.3 mEq/L (22-28); Base Excess (BEa) 5.4 mEq/L (-2.0 to +3.0); CO2 Tension 40.2 mmHg (35.0-45.0); Calcium, Ionized (arterial) 1.15 mmol/L (1.12-1.30); Carboxyhemoglobin (COHb) 0.3 gm% (0.0-3.0); Potassium - ABG Lab 3.39 mmol/L (3.70-5.30); pH, Arterial 7.48 (7.35-7.45)
[2021-08-08 08:47] LABS: Puncture Site RRA
[2021-08-08] MEDS: Enoxaparin Sodium 40 MG/0.4 ML SYRINGE SC SCH ×2 (08:59→20:33)
[2021-08-08] MEDS: Aspirin 81 mg Enteric Coated Tablet PO SCH (09:00)
[2021-08-08] MEDS: Pantoprazole 40 MG VIAL IVP SCH (09:00)
[2021-08-08] MEDS: Amlodipine 10 MG TAB PO SCH ×2 (09:01→11:02)
[2021-08-08] MEDS: Ascorbic Acid 500 mg Chewable Tablet PO SCH (09:01)
[2021-08-08] MEDS: Zinc Sulfate 220 MG CAP PO SCH (09:01)
[2021-08-08] MEDS: Lantus 1000 UNITS/10 ML VIAL SC SCH ×2 (09:03→20:33)
[2021-08-08] MEDS ORDERED: Polyethylene Glycol 3350 17 GM Packet ONE (09:49)
[2021-08-08] MEDS: Polyethylene Glycol 3350 17 GM Packet PER TUBE SCH (11:04)
[2021-08-08 11:30] LABS: Chloride 94 mmol/L (98-107); Potassium 3.7 mmol/L (3.5-5.1); Sodium 130 mmol/L (136-145)
[2021-08-08 11:31] LABS: Calcium 8.4 mg/dL (7.8-10.44); Glucose 120 mg/dL (80-115)
[2021-08-08 11:33] LABS: Anion Gap 12 mmol/L (10-20); Carbon Dioxide 28 mmol/L (23-31)
[2021-08-08 11:34] LABS: Calc. Creatinine Clearance 91 mL/min (70-130)
[2021-08-08 11:35] LABS: BUN (Urea Nitrogen) 22 mg/dL (9.8-20.1)
[2021-08-08] MEDS ORDERED: Metoclopramide 10 MG/10 ML UDCUP ONE (13:50)
[2021-08-08 17:00] LABS: Bacteria/HPF 3+ HPF (None Seen); Bilirubin Negative (Negative); Blood, Urine 2+ (Negative); Clarity Extra Turbid (Clear); Glucose, Urine (Dipstick) Normal (Negative); Ketone, Urine 20 mg/dL (Negative); Leukocyte 500 Leu/uL (Negative); Nitrite 1+ (Negative); Protein, Urine (Dipstick) 30 mg/dL (Neg-Trace); RBC/HPF Greater than 50 HPF (0-3); Specific Gravity, Urine 1.023 (1.002-1.036); Squamous Epithelial None Seen HPF (0-3); Urobilinogen 6 mg/dL (Less than 2); WBC/HPF Greater than 50 HPF (0-3); Yeast-Budding 2+ HPF (None Seen)
[2021-08-08 17:04] LABS: Urine Culture Reflex Yes Yes
[2021-08-08] MEDS: Fentanyl CADD 100 ML IV SCH (20:34)
[2021-08-08] MEDS: Senokot S 8.6-50 MG TAB PO SCH (20:35)
[2021-08-08] MEDS: Acetaminophen 325 MG TAB PO PRN (21:57)
[2021-08-08 22:19] LABS: Anion Gap 13 mmol/L (10-20); BUN (Urea Nitrogen) 22 mg/dL (9.8-20.1); Calc. Creatinine Clearance 88 mL/min (70-130); Calcium 8.5 mg/dL (7.8-10.44); Carbon Dioxide 27 mmol/L (23-31); Chloride 96 mmol/L (98-107); Glucose 229 mg/dL (80-115); Potassium 3.6 mmol/L (3.5-5.1); Sodium 132 mmol/L (136-145)
[2021-08-08] MEDS ORDERED: Sodium Chloride 0.9% 500 ML IV SCH (23:59)
[2021-08-09] MEDS: Cefepime 1 GM in Sodium Chloride 0.9% 100 ML IVPB SCH ×3 (00:02→23:51)
[2021-08-09 00:05] LABS: #Eosinphils 0.2 thou/uL (0.0-0.7); #Lymphocytes 0.4 thou/uL (1.20-3.40); #Monocytes 0.3 thou/uL (0.11-0.59); #Neutrophils 6.8 thou/uL (1.40-6.50); %Basophils 0.6 % (0.0-1.0); %Eosinophils 2.5 % (0.0-10.0); %Lymphocytes 5.1 % (21.0-51.0); %Monocytes 3.3 % (0.0-10.0); %Neutrophils 88.5 % (42.0-75.0); Hemoglobin 9.3 g/dL (12.0-16.0); Mean Corpuscular HGB CONC 34.7 g/dL (32.0-36.0); Mean Corpuscular Hemoglobin 33.6 pg (27.0-31.0); Mean Corpuscular Volume 97.1 fL (78.0-98.0); Mean Platelet Volume 5.9 fL (7.4-10.4); Platelet Count 188 thou/uL (130-400); RBC Distribution Width 11.9 % (11.5-14.5); Red Blood Cell (RBC) Count 2.75 mill/uL (4.20-5.40); White Blood Cell (WBC) Count 7.7 thou/uL (4.8-10.8)
[2021-08-09 00:22] LABS: Lactic Acid 2.4 mmol/L (0.5-2.2)
[2021-08-09] MEDS ORDERED: Sodium Chloride 0.9% 500 ML IVPB SCH (01:30)
[2021-08-09] MEDS: Sodium Chloride 0.9% 1,000 ML IV SCH ×3 (01:42→21:20)
[2021-08-09] MEDS ORDERED: Sodium Chloride 0.9% 500 ML IV SCH ×2 (01:45→16:45)
[2021-08-09] MEDS ORDERED: VANCOMYCIN 1.25 GM/250 ML BAG 1.25 GM in Premix Bag 1 BAG IVPB SCH (02:15)
[2021-08-09 03:11] LABS: #Eosinphils 0.2 thou/uL (0.0-0.7); #Lymphocytes 0.4 thou/uL (1.20-3.40); #Monocytes 0.2 thou/uL (0.11-0.59); #Neutrophils 4.6 thou/uL (1.40-6.50); %Basophils 0.1 % (0.0-1.0); %Eosinophils 3.6 % (0.0-10.0); %Lymphocytes 7.8 % (21.0-51.0); %Monocytes 4.4 % (0.0-10.0); %Neutrophils 84.2 % (42.0-75.0); Mean Corpuscular HGB CONC 33.6 g/dL (32.0-36.0); Mean Corpuscular Hemoglobin 32.7 pg (27.0-31.0); Mean Corpuscular Volume 97.4 fL (78.0-98.0); Mean Platelet Volume 5.9 fL (7.4-10.4); Platelet Count 161 thou/uL (130-400); RBC Distribution Width 11.8 % (11.5-14.5); Red Blood Cell (RBC) Count 2.45 mill/uL (4.20-5.40); White Blood Cell (WBC) Count 5.5 thou/uL (4.8-10.8)
[2021-08-09 03:27] LABS: Anion Gap 10 mmol/L (10-20); BUN (Urea Nitrogen) 25 mg/dL (9.8-20.1); Calc. Creatinine Clearance 100 mL/min (70-130); Calcium 7.7 mg/dL (7.8-10.44); Carbon Dioxide 28 mmol/L (23-31); Chloride 100 mmol/L (98-107); Glucose 125 mg/dL (80-115); Potassium 3.1 mmol/L (3.5-5.1); Sodium 135 mmol/L (136-145)
[2021-08-09] MEDS: Metoclopramide HCl 10 MG/2 ML VIAL IVP SCH ×3 (05:21→21:18)
[2021-08-09] MEDS ORDERED: Potassium Chloride 20 MEQ TAB PO SCH (06:15)
[2021-08-09 07:33] LABS: Actual Bicarbonate (HCO3a) 28.1 mEq/L (22-28); Base Excess (BEa) 3.6 mEq/L (-2.0 to +3.0); Calcium, Ionized (arterial) 1.12 mmol/L (1.12-1.30); Carboxyhemoglobin (COHb) 0.7 gm% (0.0-3.0); Hemoglobin (Hb) 10.7 g/dL (12.0-16.0); O2 Tension (PaO2), arterial 76.5 mmHg (> 80.0); Potassium - ABG Lab 3.25 mmol/L (3.70-5.30); pH, Arterial 7.44 (7.35-7.45)
[2021-08-09 07:41] LABS: Puncture Site RRA
[2021-08-09] MEDS: Lorazepam 2 MG/ML VIAL SLOW IVP PRN ×3 (08:44→22:10)
[2021-08-09] MEDS: Pantoprazole 40 MG VIAL IVP SCH (08:46)
[2021-08-09] MEDS: Enoxaparin Sodium 40 MG/0.4 ML SYRINGE SC SCH ×2 (08:46→21:18)
[2021-08-09] MEDS: Fentanyl CADD 100 ML IV SCH ×2 (09:17→23:48)
[2021-08-09] MEDS: Zinc Sulfate 220 MG CAP PO SCH (10:20)
[2021-08-09] MEDS: Senokot S 8.6-50 MG TAB PO SCH ×2 (10:20→21:20)
[2021-08-09] MEDS: Aspirin 81 mg Enteric Coated Tablet PO SCH (10:20)
[2021-08-09] MEDS: Lantus 1000 UNITS/10 ML VIAL SC SCH ×2 (10:20→21:26)
[2021-08-09] MEDS: Ascorbic Acid 500 mg Chewable Tablet PO SCH (10:21)
[2021-08-09] MEDS: Morphine 4 MG/ML VIAL SLOW IVP PRN ×2 (10:57→22:15)
[2021-08-09] MEDS: Propofol 1,000 MG/100 ML VIAL IV PRN ×3 (11:21→21:25)
[2021-08-09] MEDS ORDERED: Norepinephrine 8 MG/0.9% NS 250 ML IVPB SCH (11:30)
[2021-08-09 11:41] LABS: Actual Bicarbonate (HCO3a) 26.4 mEq/L (22-28); Base Excess (BEa) 1.7 mEq/L (-2.0 to +3.0); Calcium, Ionized (arterial) 1.14 mmol/L (1.12-1.30); Carboxyhemoglobin (COHb) 0.8 gm% (0.0-3.0); Hemoglobin (Hb) 9.8 g/dL (12.0-16.0); Potassium - ABG Lab 3.31 mmol/L (3.70-5.30); pH, Arterial 7.42 (7.35-7.45)
[2021-08-09] MEDS: Dextrose 50% Abboject 50 ML SYRINGE SLOW IVP PRN (13:01)
[2021-08-09] MEDS: Acetaminophen 325 MG TAB PO PRN (13:19)
[2021-08-09] MEDS: Vancomycin 1 GM in Premix Bag 1 BAG IVPB SCH (15:44)
[2021-08-09 17:28] LABS: O2 Tension (PaO2), arterial 47.2 mmHg (> 80.0); Puncture Site RRA
[2021-08-09] MEDS ORDERED: Metoprolol Tartrate 5 MG/5 ML VIAL IVP SCH (17:30)
[2021-08-09] MEDS ORDERED: Norepinephrine 8 MG, Admixture Fee 1 EACH in Sodium Chloride 0.9% 250 ML 250 ML IVPB SCH (19:00)
[2021-08-09] MEDS ORDERED: Sodium Chloride 0.9% 250 ML IV SCH (20:45)
[2021-08-10] MEDS: Acetaminophen 325 MG TAB PO PRN (00:10)
[2021-08-10] MEDS: Vancomycin 1 GM in Premix Bag 1 BAG IVPB SCH ×2 (03:59→14:53)
[2021-08-10 04:26] LABS: #Eosinphils 0.2 thou/uL (0.0-0.7); #Lymphocytes 0.3 thou/uL (1.20-3.40); #Monocytes 0.2 thou/uL (0.11-0.59); #Neutrophils 5.6 thou/uL (1.40-6.50); %Basophils 0.2 % (0.0-1.0); %Eosinophils 2.8 % (0.0-10.0); %Lymphocytes 5.2 % (21.0-51.0); %Monocytes 2.8 % (0.0-10.0); %Neutrophils 89.1 % (42.0-75.0); Mean Corpuscular HGB CONC 33.4 g/dL (32.0-36.0); Mean Corpuscular Hemoglobin 33.2 pg (27.0-31.0); Mean Corpuscular Volume 99.6 fL (78.0-98.0); Mean Platelet Volume 6.5 fL (7.4-10.4); Platelet Count 151 thou/uL (130-400); RBC Distribution Width 12.1 % (11.5-14.5); Red Blood Cell (RBC) Count 2.39 mill/uL (4.20-5.40); White Blood Cell (WBC) Count 6.3 thou/uL (4.8-10.8)
[2021-08-10 04:43] LABS: Anion Gap 9 mmol/L (10-20); BUN (Urea Nitrogen) 15 mg/dL (9.8-20.1); Calc. Creatinine Clearance 107 mL/min (70-130); Calcium 8.1 mg/dL (7.8-10.44); Carbon Dioxide 26 mmol/L (23-31); Chloride 104 mmol/L (98-107); Glucose 117 mg/dL (80-115); Potassium 3.4 mmol/L (3.5-5.1); Sodium 136 mmol/L (136-145)
[2021-08-10] MEDS: Sodium Chloride 0.9% 1,000 ML IV SCH (04:59)
[2021-08-10] MEDS: Metoclopramide HCl 10 MG/2 ML VIAL IVP SCH ×3 (05:00→22:57)
[2021-08-10] MEDS: HumaLOG 300 UNITS/3 ML VIAL SC PRN ×3 (05:09→17:09)
[2021-08-10] MEDS ORDERED: Potassium Chloride 20 MEQ TAB PO SCH (05:15)
[2021-08-10] MEDS: Vecuronium 10 MG VIAL IV PRN ×3 (08:35→14:41)
[2021-08-10] MEDS: Lorazepam 2 MG/ML VIAL SLOW IVP PRN ×3 (08:35→14:41)
[2021-08-10 08:40] LABS: Actual Bicarbonate (HCO3a) 25.4 mEq/L (22-28); Base Excess (BEa) -1.4 mEq/L (-2.0 to +3.0); CO2 Tension 53.5 mmHg (35.0-45.0); Calcium, Ionized (arterial) 1.17 mmol/L (1.12-1.30); Carboxyhemoglobin (COHb) 0.9 gm% (0.0-3.0); Hemoglobin (Hb) 9.3 g/dL (12.0-16.0); Potassium - ABG Lab 3.71 mmol/L (3.70-5.30); pH, Arterial 7.29 (7.35-7.45)
[2021-08-10 08:43] LABS: O2 Tension (PaO2), arterial 44.3 mmHg (> 80.0)
[2021-08-10 08:44] LABS: ALV-art Gradient 601.825 mmHg (0-20); Puncture Site RRA
[2021-08-10] MEDS ORDERED: Metoprolol Tartrate 5 MG/5 ML VIAL IVP SCH (08:45)
[2021-08-10] MEDS ORDERED: Norepinephrine 8 MG/0.9% NS 250 ML IVPB SCH (08:45)
[2021-08-10] MEDS ORDERED: MEROPENEM 1 GM/50 ML 1 GM in Premix Bag 1 BAG IVPB SCH ×2 (09:00→17:00)
[2021-08-10] MEDS ORDERED: Norepinephrine 8 MG in Dextrose 5% in Water 242 ML IVPB PRN (09:00)
[2021-08-10] MEDS: methylPREDNISolone Sod Succ/PF 125 MG/2 ML VIAL IVP SCH (09:05)
[2021-08-10] MEDS: Senokot S 8.6-50 MG TAB PO SCH ×2 (09:09→20:06)
[2021-08-10] MEDS: Polyethylene Glycol 3350 17 GM Packet PER TUBE SCH (09:09)
[2021-08-10] MEDS: Zinc Sulfate 220 MG CAP PO SCH (09:09)
[2021-08-10] MEDS: Enoxaparin Sodium 40 MG/0.4 ML SYRINGE SC SCH ×2 (09:10→20:06)
[2021-08-10] MEDS: Pantoprazole 40 MG VIAL IVP SCH (09:10)
[2021-08-10] MEDS: Aspirin 81 mg Enteric Coated Tablet PO SCH (09:10)
[2021-08-10] MEDS: Ascorbic Acid 500 mg Chewable Tablet PO SCH (09:10)
[2021-08-10] MEDS: Lantus 1000 UNITS/10 ML VIAL SC SCH ×2 (09:35→20:06)
[2021-08-10] MEDS ORDERED: Meropenem 1 GM in Sodium Chloride 0.9% 100 ML IVPB SCH ×2 (09:45→14:00)
[2021-08-10] MEDS ORDERED: Metoprolol Tartrate 50 MG TAB PO SCH (12:00)
[2021-08-10] MEDS ORDERED: Furosemide 40 MG/4 ML VIAL SLOW IVP SCH (12:00)
[2021-08-10 14:30] LABS: Vancomycin, Trough 16.9 ug/mL
[2021-08-10] MEDS: Propofol 1,000 MG/100 ML VIAL IV PRN ×2 (15:07→20:05)
[2021-08-10] MEDS: Meropenem 1 GM in Sodium Chloride 0.9% 100 ML IVPB SCH (16:27)
[2021-08-10] MEDS: Fentanyl CADD 100 ML IV SCH (16:47)
[2021-08-10] MEDS: Metoprolol Tartrate 50 MG TAB PO SCH (20:06)
[2021-08-11] MEDS: Meropenem 1 GM in Sodium Chloride 0.9% 100 ML IVPB SCH ×3 (00:23→17:04)
[2021-08-11] MEDS: Propofol 1,000 MG/100 ML VIAL IV PRN ×4 (02:14→19:50)
[2021-08-11] MEDS: Vancomycin 1 GM in Premix Bag 1 BAG IVPB SCH ×2 (02:14→13:39)
[2021-08-11 05:29] LABS: #Lymphocytes 0.3 thou/uL (1.20-3.40); #Monocytes 0.2 thou/uL (0.11-0.59); #Neutrophils 2.9 thou/uL (1.40-6.50); %Basophils 0.3 % (0.0-1.0); %Eosinophils 1.1 % (0.0-10.0); %Lymphocytes 7.2 % (21.0-51.0); %Monocytes 5.8 % (0.0-10.0); %Neutrophils 85.6 % (42.0-75.0); Hemoglobin 7.4 g/dL (12.0-16.0); Mean Corpuscular HGB CONC 35.1 g/dL (32.0-36.0); Mean Corpuscular Hemoglobin 34.4 pg (27.0-31.0); Mean Corpuscular Volume 97.8 fL (78.0-98.0); Mean Platelet Volume 6.2 fL (7.4-10.4); Platelet Count 115 thou/uL (130-400); Platelet Morphology Comment Appears Decreased; RBC Distribution Width 11.7 % (11.5-14.5); Red Blood Cell (RBC) Count 2.15 mill/uL (4.20-5.40); White Blood Cell (WBC) Count 3.4 thou/uL (4.8-10.8)
[2021-08-11 05:40] LABS: Anion Gap 9 mmol/L (10-20); BUN (Urea Nitrogen) 25 mg/dL (9.8-20.1); Calc. Creatinine Clearance 66 mL/min (70-130); Calcium 8.5 mg/dL (7.8-10.44); Carbon Dioxide 26 mmol/L (23-31); Chloride 101 mmol/L (98-107); Glucose 182 mg/dL (80-115); Potassium 4.2 mmol/L (3.5-5.1); Sodium 132 mmol/L (136-145)
[2021-08-11] MEDS: Metoclopramide HCl 10 MG/2 ML VIAL IVP SCH ×3 (06:02→21:23)
[2021-08-11 07:43] LABS: Actual Bicarbonate (HCO3a) 25.4 mEq/L (22-28); Base Excess (BEa) -0.6 mEq/L (-2.0 to +3.0); CO2 Tension 48.9 mmHg (35.0-45.0); Calcium, Ionized (arterial) 1.19 mmol/L (1.12-1.30); Carboxyhemoglobin (COHb) 0.8 gm% (0.0-3.0); Hemoglobin (Hb) 7.7 g/dL (12.0-16.0); Potassium - ABG Lab 3.99 mmol/L (3.70-5.30); pH, Arterial 7.33 (7.35-7.45)
[2021-08-11 07:49] LABS: O2 Tension (PaO2), arterial 50.2 mmHg (> 80.0); Puncture Site RRA
[2021-08-11 07:50] LABS: ALV-art Gradient 566.025 mmHg (0-20)
[2021-08-11] MEDS: Lorazepam 2 MG/ML VIAL SLOW IVP PRN ×2 (08:09→17:18)
[2021-08-11] MEDS: Aspirin 81 mg Enteric Coated Tablet PO SCH (08:09)
[2021-08-11] MEDS: Senokot S 8.6-50 MG TAB PO SCH ×2 (08:09→19:51)
[2021-08-11] MEDS: Polyethylene Glycol 3350 17 GM Packet PER TUBE SCH (08:10)
[2021-08-11] MEDS: methylPREDNISolone Sod Succ/PF 125 MG/2 ML VIAL IVP SCH (08:10)
[2021-08-11] MEDS: Ascorbic Acid 500 mg Chewable Tablet PO SCH (08:10)
[2021-08-11] MEDS: Metoprolol Tartrate 50 MG TAB PO SCH ×2 (08:10→19:51)
[2021-08-11] MEDS: Zinc Sulfate 220 MG CAP PO SCH (08:10)
[2021-08-11] MEDS: Pantoprazole 40 MG VIAL IVP SCH (08:10)
[2021-08-11] MEDS: Enoxaparin Sodium 40 MG/0.4 ML SYRINGE SC SCH ×2 (08:10→19:51)
[2021-08-11] MEDS: Lantus 1000 UNITS/10 ML VIAL SC SCH ×2 (08:12→19:50)
[2021-08-11] MEDS ORDERED: Furosemide 100 MG/10 ML VIAL SLOW IVP SCH (10:00)
[2021-08-11] MEDS: Vecuronium 10 MG VIAL IV PRN ×2 (10:13→17:18)
[2021-08-11 11:14] LABS: ALT (SGPT) 125 U/L (8-55); AST (SGOT) 28 U/L (5-34); Albumin 2.4 g/dL (3.4-4.8); Alkaline Phosphatase 256 U/L (40-110); Bilirubin, Direct 0.5 mg/dL (0.1-0.3); Bilirubin, Total 0.7 mg/dL (0.2-1.2); Protein, Total 5.3 g/dL (5.8-8.1)
[2021-08-11] MEDS: Fentanyl CADD 100 ML IV SCH (11:40)
[2021-08-11] MEDS: HumaLOG 300 UNITS/3 ML VIAL SC PRN ×3 (13:26→22:44)
[2021-08-12] MEDS: Meropenem 1 GM in Sodium Chloride 0.9% 100 ML IVPB SCH ×3 (00:08→17:49)
[2021-08-12] MEDS: Vancomycin 1 GM in Premix Bag 1 BAG IVPB SCH (03:03)
[2021-08-12] MEDS: Propofol 1,000 MG/100 ML VIAL IV PRN ×4 (03:03→23:47)
[2021-08-12] MEDS: Vecuronium 10 MG VIAL IV PRN ×3 (05:18→21:49)
[2021-08-12] MEDS: Lorazepam 2 MG/ML VIAL SLOW IVP PRN ×2 (05:18→12:07)
[2021-08-12] MEDS: Metoclopramide HCl 10 MG/2 ML VIAL IVP SCH ×3 (05:18→21:02)
[2021-08-12 05:30] LABS: #Eosinphils 0.1 thou/uL (0.0-0.7); #Lymphocytes 0.5 thou/uL (1.20-3.40); #Monocytes 0.2 thou/uL (0.11-0.59); #Neutrophils 4.3 thou/uL (1.40-6.50); %Basophils 0.8 % (0.0-1.0); %Eosinophils 2.3 % (0.0-10.0); %Lymphocytes 9.2 % (21.0-51.0); %Monocytes 4.4 % (0.0-10.0); %Neutrophils 83.3 % (42.0-75.0); Hemoglobin 8.2 g/dL (12.0-16.0); Mean Corpuscular HGB CONC 32.9 g/dL (32.0-36.0); Mean Corpuscular Hemoglobin 32.1 pg (27.0-31.0); Mean Corpuscular Volume 97.6 fL (78.0-98.0); Mean Platelet Volume 6.3 fL (7.4-10.4); Platelet Count 165 thou/uL (130-400); RBC Distribution Width 11.9 % (11.5-14.5); Red Blood Cell (RBC) Count 2.56 mill/uL (4.20-5.40); White Blood Cell (WBC) Count 5.2 thou/uL (4.8-10.8)
[2021-08-12 05:49] LABS: Anion Gap 13 mmol/L (10-20); BUN (Urea Nitrogen) 37 mg/dL (9.8-20.1); Calc. Creatinine Clearance 61 mL/min (70-130); Calcium 8.7 mg/dL (7.8-10.44); Carbon Dioxide 27 mmol/L (23-31); Chloride 97 mmol/L (98-107); Glucose 136 mg/dL (80-115); Potassium 3.5 mmol/L (3.5-5.1); Sodium 133 mmol/L (136-145)
[2021-08-12 07:19] LABS: Actual Bicarbonate (HCO3a) 28.8 mEq/L (22-28); Base Excess (BEa) 0.4 mEq/L (-2.0 to +3.0); Carboxyhemoglobin (COHb) 0.8 gm% (0.0-3.0); Hemoglobin (Hb) 9.4 g/dL (12.0-16.0); O2 Tension (PaO2), arterial 66.8 mmHg (> 80.0); Potassium - ABG Lab 3.36 mmol/L (3.70-5.30)
[2021-08-12 07:49] LABS: pH, Arterial 7.23 (7.35-7.45)
[2021-08-12 07:50] LABS: CO2 Tension 69.6 mmHg (35.0-45.0); Puncture Site RRA
[2021-08-12] MEDS ORDERED: Furosemide 100 MG/10 ML VIAL SLOW IVP SCH (08:15)
[2021-08-12] MEDS ORDERED: Potassium Bicarbonate/Cit Ac 20 MEQ TAB PO SCH (08:15)
[2021-08-12] MEDS: Fentanyl CADD 100 ML IV SCH (10:00)
[2021-08-12] MEDS: Metoprolol Tartrate 50 MG TAB PO SCH ×2 (10:06→21:02)
[2021-08-12] MEDS: methylPREDNISolone Sod Succ/PF 125 MG/2 ML VIAL IVP SCH (10:06)
[2021-08-12] MEDS: Senokot S 8.6-50 MG TAB PO SCH ×2 (10:06→21:02)
[2021-08-12] MEDS: Ascorbic Acid 500 mg Chewable Tablet PO SCH (10:06)
[2021-08-12] MEDS: Zinc Sulfate 220 MG CAP PO SCH (10:06)
[2021-08-12] MEDS: Aspirin 81 mg Enteric Coated Tablet PO SCH (10:07)
[2021-08-12] MEDS: Pantoprazole 40 MG VIAL IVP SCH (10:07)
[2021-08-12] MEDS: Lantus 1000 UNITS/10 ML VIAL SC SCH ×2 (10:07→21:01)
[2021-08-12] MEDS: Polyethylene Glycol 3350 17 GM Packet PER TUBE SCH (10:07)
[2021-08-12] MEDS: Enoxaparin Sodium 40 MG/0.4 ML SYRINGE SC SCH ×2 (10:07→21:02)
[2021-08-12 14:49] LABS: Vancomycin, Trough 53.6 ug/mL
[2021-08-12] MEDS ORDERED: Refresh Lacri-lube Opth Oint 7 GM TUBE EA EYE PRN (18:13)
[2021-08-13] MEDS: Meropenem 1 GM in Sodium Chloride 0.9% 100 ML IVPB SCH ×3 (00:47→17:09)
[2021-08-13] MEDS: Acetaminophen 325 MG TAB PO PRN (04:05)
[2021-08-13 04:16] LABS: Anion Gap 14 mmol/L (10-20); BUN (Urea Nitrogen) 45 mg/dL (9.8-20.1); Calc. Creatinine Clearance 62 mL/min (70-130); Calcium 8.8 mg/dL (7.8-10.44); Carbon Dioxide 32 mmol/L (23-31); Chloride 96 mmol/L (98-107); Glucose 79 mg/dL (80-115); Potassium 3.7 mmol/L (3.5-5.1); Sodium 138 mmol/L (136-145)
[2021-08-13 04:21] LABS: #Eosinphils 0.2 thou/uL (0.0-0.7); #Lymphocytes 0.7 thou/uL (1.20-3.40); #Monocytes 0.2 thou/uL (0.11-0.59); #Neutrophils 5.3 thou/uL (1.40-6.50); %Basophils 0.1 % (0.0-1.0); %Eosinophils 2.8 % (0.0-10.0); %Lymphocytes 11.1 % (21.0-51.0); %Monocytes 3.6 % (0.0-10.0); %Neutrophils 82.4 % (42.0-75.0); Hemoglobin 9.6 g/dL (12.0-16.0); Mean Corpuscular HGB CONC 33.5 g/dL (32.0-36.0); Mean Corpuscular Hemoglobin 32.6 pg (27.0-31.0); Mean Corpuscular Volume 97.3 fL (78.0-98.0); Mean Platelet Volume 6.3 fL (7.4-10.4); Platelet Count 155 thou/uL (130-400); RBC Distribution Width 12.2 % (11.5-14.5); Red Blood Cell (RBC) Count 2.93 mill/uL (4.20-5.40); White Blood Cell (WBC) Count 6.4 thou/uL (4.8-10.8)
[2021-08-13] MEDS: Lorazepam 2 MG/ML VIAL SLOW IVP PRN ×2 (06:06→12:35)
[2021-08-13] MEDS: Vecuronium 10 MG VIAL IV PRN ×2 (06:46→12:35)
[2021-08-13] MEDS: Metoclopramide HCl 10 MG/2 ML VIAL IVP SCH ×2 (06:46→14:01)
[2021-08-13 07:07] LABS: Actual Bicarbonate (HCO3a) 31.4 mEq/L (22-28); Base Excess (BEa) 4.3 mEq/L (-2.0 to +3.0); Calcium, Ionized (arterial) 1.16 mmol/L (1.12-1.30); Carboxyhemoglobin (COHb) 0.6 gm% (0.0-3.0); Hemoglobin (Hb) 9.1 g/dL (12.0-16.0); Potassium - ABG Lab 3.34 mmol/L (3.70-5.30); pH, Arterial 7.32 (7.35-7.45)
[2021-08-13 07:37] LABS: CO2 Tension 62.6 mmHg (35.0-45.0)
[2021-08-13 07:38] LABS: Puncture Site RRA
[2021-08-13] MEDS: Fentanyl CADD 100 ML IV SCH (08:01)
[2021-08-13 09:04] VITALS: BMI 23.7
[2021-08-13] MEDS: methylPREDNISolone Sod Succ/PF 125 MG/2 ML VIAL IVP SCH (09:11)
[2021-08-13] MEDS: Enoxaparin Sodium 40 MG/0.4 ML SYRINGE SC SCH (09:11)
[2021-08-13] MEDS: Metoprolol Tartrate 50 MG TAB PO SCH ×2 (09:11→11:06)
[2021-08-13] MEDS: Ascorbic Acid 500 mg Chewable Tablet PO SCH (09:11)
[2021-08-13] MEDS: Aspirin 81 mg Enteric Coated Tablet PO SCH (09:11)
[2021-08-13] MEDS: Pantoprazole 40 MG VIAL IVP SCH (09:12)
[2021-08-13] MEDS: Zinc Sulfate 220 MG CAP PO SCH (09:12)
[2021-08-13] MEDS: Senokot S 8.6-50 MG TAB PO SCH (09:12)
[2021-08-13] MEDS: Polyethylene Glycol 3350 17 GM Packet PER TUBE SCH (09:12)
[2021-08-13] MEDS: Lantus 1000 UNITS/10 ML VIAL SC SCH (09:18)
[2021-08-13] MEDS: Dextrose 50% Abboject 50 ML SYRINGE SLOW IVP PRN (09:24)
[2021-08-13] MEDS ORDERED: Micafungin 100 MG in Sodium Chloride 0.9% 100 ML IVPB SCH (14:00)
[2021-08-13 14:49] VITALS: BP 104/59
[2021-08-13] MEDS: Propofol 1,000 MG/100 ML VIAL IV PRN (15:02)
[2021-08-13] MEDS ORDERED: Morphine 4 MG/ML VIAL SLOW IVP PRN (15:41)
[2021-08-13] MEDS ORDERED: Lorazepam 2 MG/ML VIAL SLOW IVP PRN (15:42)
[2021-08-13 16:44] VITALS: TEMP 97.7
[2021-08-13] MEDS ORDERED: Scopolamine 1.5 mg/72 hour Patch TD SCH (17:00)
== END 2021-08-13 19:34 | disposition expired | DRG 870 ==
LOC: 2SW 16:04 → IMCU/EMU 07-17 05:52 → CCU 07-23 16:49
PROVIDERS: ADMIT Internal Medicine; ATTEND Internal Medicine
PROC: 8E0ZXY6 Isolation (ICD-10-PCS; 2021-07-15)
PROC: 3E0333Z Introduction of Anti-inflammatory into Peripheral Vein, Percutaneous Approach (ICD-10-PCS; 2021-07-15)
PROC: XW033E5 Introduction of Remdesivir Anti-infective into Peripheral Vein, Percutaneous Approach, New Technology Group 5 (ICD-10-PCS; 2021-07-15)
PROC: 5A09557 Assistance with Respiratory Ventilation, Greater than 96 Consecutive Hours, Continuous Positive Airway Pressure (ICD-10-PCS; 2021-07-17)
PROC: XW0DXM6 Introduction of Baricitinib into Mouth and Pharynx, External Approach, New Technology Group 6 (ICD-10-PCS; 2021-07-22)
PROC: 5A1955Z Respiratory Ventilation, Greater than 96 Consecutive Hours (ICD-10-PCS; principal; 2021-07-24)
PROC: 3E033XZ Introduction of Vasopressor into Peripheral Vein, Percutaneous Approach (ICD-10-PCS; 2021-07-24)
PROC: 5A12012 Performance of Cardiac Output, Single, Manual (ICD-10-PCS; 2021-07-24)
PROC: 0D9670Z Drainage of Stomach with Drainage Device, Via Natural or Artificial Opening (ICD-10-PCS; 2021-07-24)
PROC: 0BH17EZ Insertion of Endotracheal Airway into Trachea, Via Natural or Artificial Opening (ICD-10-PCS; 2021-07-24)
PROC: 0B9J8ZX Drainage of Left Lower Lung Lobe, Via Natural or Artificial Opening Endoscopic, Diagnostic (ICD-10-PCS; 2021-08-10)
DX: A41.89 Other specified sepsis (principal); E11.10 Type 2 diabetes mellitus with ketoacidosis without coma; U07.1 COVID-19; J12.82 Pneumonia due to coronavirus disease 2019; J80 Acute respiratory distress syndrome; E87.1 Hypo-osmolality and hyponatremia; E46 Unspecified protein-calorie malnutrition; N17.9 Acute kidney failure, unspecified; Z99.11 Dependence on respirator [ventilator] status; N30.00 Acute cystitis without hematuria; A41.51 Sepsis due to Escherichia coli [E. coli]; Z51.5 Encounter for palliative care; Z66 Do not resuscitate; E11.51 Type 2 diabetes mellitus with diabetic peripheral angiopathy without gangrene; E27.8 Other specified disorders of adrenal gland; E87.6 Hypokalemia; K76.0 Fatty (change of) liver, not elsewhere classified; J43.9 Emphysema, unspecified; E11.65 Type 2 diabetes mellitus with hyperglycemia; K21.9 Gastro-esophageal reflux disease without esophagitis; I10 Essential (primary) hypertension; T38.0X5A Adverse effect of glucocorticoids and synthetic analogues, initial encounter; I46.8 Cardiac arrest due to other underlying condition; D72.829 Elevated white blood cell count, unspecified; R00.1 Bradycardia, unspecified; R13.12 Dysphagia, oropharyngeal phase; Z88.0 Allergy status to penicillin; Z88.2 Allergy status to sulfonamides; Z79.51 Long term (current) use of inhaled steroids; Z79.82 Long term (current) use of aspirin; Z79.84 Long term (current) use of oral hypoglycemic drugs; Z79.899 Other long term (current) drug therapy; Z90.710 Acquired absence of both cervix and uterus; Z98.890 Other specified postprocedural states; Z78.1 Physical restraint status; Z87.891 Personal history of nicotine dependence; Z68.23 Body mass index [BMI] 23.0-23.9, adult
CPT/HCPCS: 31624; 36415; 36416; 36600; 71045; 71275; 74018; 80048; 80053; 80061; 80076; 80202; 81001; 82010; 82728; 82805; 83036; 83605; 83615; 83735; 84145; 85025; 85379; 85610; 85730; 86140; 87040; 87070; 87077; 87086; 87186; 87205; 93005; 93010; 94002; 94003; 94760; C9113; J0171; J0360; J0692; J1100; J1650; J1815; J1940; J1956; J2060; J2185; J2248; J2270; J2405; J2550; J2704; J2765; J2930; J3010; J3370; J3475; J3490; J7030; J7050; P9045; Q9967; S0028